=== PATIENT | female | born 1935 | race Caucasian/White ===

== ENCOUNTER 2020-02-15 10:27 | Outpatient (CLI) | payer MEDICARE, BC, SELFPAY ==
[2020-02-15 11:09] LABS: Basophils Absolute Auto 0.1 K/mm3 (0.0-0.1); Basophils Percent Auto 0.9 % (0.2-1.2); Eosinophils Absolute Auto 0.3 K/mm3 (0-0.3); Eosinophils Percent Auto 3.2 % (0-4.4); Hematocrit 44.7 % (37.0-47.0); Hemoglobin 14.7 g/dL (12.0-15.0); Immature Granulocyte Absolute 0.04 K/mm3 (0.00-0.031); Immature Granulocyte Percent A 0.5 % (0-0.5); Lymphocytes Absolute Auto 2.13 K/mm3 (0.9-3.2); Mean Corpuscular HGB Conc 32.9 g/dl (32-36); Mean Corpuscular Hemoglobin 29.2 pg (26-34); Mean Corpuscular Volume 88.7 fl (80-100); Mean Platelet Volume 11.5 fl (7.4-10.4); Monocytes Absolute Auto 0.7 K/mm3 (0.1-0.6); Monocytes Percent Auto 7.8 % (2.6-8.5); Neutrophils Absolute Auto 5.7 K/mm3 (1.3-6.7); Neutrophils Percent Auto 63.6 % (45.5-73.1); Platelet Count Result 217 k/mm3 (150-375); Red Blood Count 5.04 M/mm3 (4.2-5.4); Red Cell Distribution Width 13.9 % (11.5-14.5); White Blood Count 8.9 K/mm3 (4.5-10.0)
[2020-02-15 11:19] LABS: Alanine Aminotransferase 14 U/L (4-35); Albumin Level 4.1 g/dL (3.5-5.1); Alkaline Phosphatase 60 U/L (38-126); Aspartate Amino Transferase 22 U/L (14-36); Bilirubin,Total 0.5 mg/dL (0.2-1.3); Blood Urea Nitrogen 28 mg/dL (7-17); Calcium 9.6 mg/dL (8.4-10.2); Carbon Dioxide 32 mmol/L (22-30); Chloride 102 mmol/L (98-107); Cholesterol 163 mg/dL (0-200); Estimated Glomerular Filt Rate > 60; Glucose 109 mg/dL (65-105); HDL Direct 32 mg/dL; Potassium 3.8 mmol/L (3.4-5.0); Sodium 139 mmol/L (137-145); Triglycerides 294 mg/dL (<150)
[2020-02-15 11:29] LABS: LDL Cholesterol Direct 82 mg/dL
[2020-02-15 11:34] LABS: Hemoglobin A1C 6.3 % (<5.7)
[2020-02-15 11:58] LABS: Free T4 Free Thyroxine 0.76 ng/mL (0.78-2.19)
== END 2020-02-15 10:28 | disposition home or self-care (01) ==
PROVIDERS: PCP Family Medicine; Visit Provider Family Medicine
DX: J44.9 Chronic obstructive pulmonary disease, unspecified (principal); E11.9 Type 2 diabetes mellitus without complications; I10 Essential (primary) hypertension; Z79.899 Other long term (current) drug therapy
CPT/HCPCS: 36415; 80053; 80061; 83036; 84439; 84443; 85025

== ENCOUNTER 2020-03-29 09:35 | Outpatient (CLI) | payer MEDICARE, BC, SELFPAY ==
[2020-03-29 13:38] LABS: Free T4 Free Thyroxine 0.69 ng/mL (0.78-2.19)
== END 2020-03-29 09:36 | disposition home or self-care (01) ==
PROVIDERS: PCP Family Medicine; Visit Provider Family Medicine
DX: R53.83 Other fatigue (principal); R79.89 Other specified abnormal findings of blood chemistry
CPT/HCPCS: 36415; 84439; 84443

== ENCOUNTER 2020-05-22 11:46 | Outpatient (CLI) | payer MEDICARE, BC, SELFPAY ==
[2020-05-22 13:18] LABS: Thyroid Stimulating Hormone 0.109 uIU/mL (0.465-4.680)
[2020-05-22 13:22] LABS: Free T4 Free Thyroxine 1.02 ng/mL (0.78-2.19)
== END 2020-05-22 11:47 | disposition home or self-care (01) ==
PROVIDERS: PCP Family Medicine; Visit Provider Family Medicine
DX: E03.9 Hypothyroidism, unspecified (principal)
CPT/HCPCS: 36415; 84439; 84443

== ENCOUNTER 2021-02-20 10:55 | Outpatient (CLI) | payer MEDICARE, BC, SELFPAY ==
[2021-02-20 11:16] LABS: Basophils Absolute Auto 0.1 K/mm3 (0.0-0.1); Basophils Percent Auto 0.9 % (0.2-1.2); Eosinophils Absolute Auto 0.2 K/mm3 (0-0.3); Eosinophils Percent Auto 2.9 % (0-4.4); Hematocrit 44.3 % (37.0-47.0); Hemoglobin 14.5 g/dL (12.0-15.0); Immature Granulocyte Absolute 0.03 K/mm3 (0.00-0.031); Immature Granulocyte Percent A 0.4 % (0-0.5); Lymphocytes Absolute Auto 2.02 K/mm3 (0.9-3.2); Lymphocytes Percent Auto 26.3 % (18.3-44.2); Mean Corpuscular HGB Conc 32.7 g/dl (32-36); Mean Corpuscular Hemoglobin 29.2 pg (26-34); Mean Corpuscular Volume 89.1 fl (80-100); Mean Platelet Volume 11.3 fl (7.4-10.4); Monocytes Absolute Auto 0.6 K/mm3 (0.1-0.6); Monocytes Percent Auto 8.3 % (2.6-8.5); Neutrophils Absolute Auto 4.7 K/mm3 (1.3-6.7); Neutrophils Percent Auto 61.2 % (45.5-73.1); Platelet Count Result 223 k/mm3 (150-375); Red Blood Count 4.97 M/mm3 (4.2-5.4); Red Cell Distribution Width 13.9 % (11.5-14.5); White Blood Count 7.7 K/mm3 (4.5-10.0)
[2021-02-20 11:27] LABS: Alanine Aminotransferase 17 U/L (4-35); Albumin Level 4.3 g/dL (3.5-5.1); Alkaline Phosphatase 66 U/L (38-126); Anion Gap 10 mmol/L (8-16); Aspartate Amino Transferase 37 U/L (14-36); Bilirubin,Total 0.4 mg/dL (0.2-1.3); Blood Urea Nitrogen 22 mg/dL (7-17); Carbon Dioxide 27 mmol/L (22-30); Chloride 105 mmol/L (98-107); Cholesterol 191 mg/dL (0-200); Estimated Glomerular Filt Rate > 60; Glucose 113 mg/dL (65-105); HDL Direct 38 mg/dL; Potassium 3.8 mmol/L (3.4-5.0); Sodium 142 mmol/L (137-145); Triglycerides 339 mg/dL (<150)
[2021-02-20 11:38] LABS: LDL Cholesterol Direct 82 mg/dL
[2021-02-20 11:58] LABS: Thyroid Stimulating Hormone 0.839 uIU/mL (0.465-4.680)
[2021-02-20 12:41] LABS: Free T4 Free Thyroxine 0.81 ng/mL (0.78-2.19)
== END 2021-02-20 10:56 | disposition home or self-care (01) ==
PROVIDERS: PCP Family Medicine; Visit Provider Family Medicine
DX: E11.9 Type 2 diabetes mellitus without complications (principal); R60.9 Edema, unspecified; M19.91 Primary osteoarthritis, unspecified site; I10 Essential (primary) hypertension; K21.9 Gastro-esophageal reflux disease without esophagitis; J44.9 Chronic obstructive pulmonary disease, unspecified; Z79.899 Other long term (current) drug therapy
CPT/HCPCS: 36415; 80053; 80061; 84439; 84443; 85025

== ENCOUNTER 2021-02-28 10:32 | Outpatient (CLI) | payer MEDICARE, BC, SELFPAY ==
--- NOTE | ~2021-02-28 | MM_ITS ---
EXAMINATION: MM screening [facility] BI w [place] HISTORY: Screening TECHNIQUE: Craniocaudal and mediolateral oblique 3-D tomosynthesis images were obtained and synthetic 2-D images were generated. CAD analysis was submitted and interpreted. COMPARISON: Comparison to multiple prior studies sequentially, with oldest reviewed study dated 04/2015. BREAST PARENCHYMAL COMPOSITION: There are scattered areas of fibroglandular density. FINDINGS: There is no evidence of suspicious mass, calcification, or architectural distortion to sugg est malignancy in either breast. There has been no suspicious interval change. IMPRESSION: 1. No mammographic evidence of malignancy. 2. Recommend routine screening mammography in one year. BI-RADS Category 1: Negative Reviewed, dictated and finalized at location A.
--- NOTE | ~2021-02-28 | DEXA_ITS ---
Bone Density Report Name: Shellie Johnson Age: 85 Sex: Female Ethnicity: White Date of : 1935 Indication: postmenopausal; height loss; hysterectomy; Referring Provider: Austin Vogel Study: Bone densitometry was performed. Exam Date: February 28, 2021 Accession number: [id number] Bone Density: Region BMD T-score Z-score Classification AP Spine (L1-L4) 1.034 -0.1 2.7 Normal Femoral Neck (Left) 0.673 -1.6 0.9 Osteopenia Total Hip (Left) 0.863 -0.6 1.6 Normal Total Hip Bilateral Avg 0.844 -0.8 1.5 Normal Femoral Neck (Right) 0.572 -2.5 0.0 Osteoporosis Total Hip (Right) 0.825 -1.0 1.3 Normal World Health Organization criteria for BMD impression classify patients as: Normal (T-score at or above -1.0), Osteopenia (T-score between -1.0 and -2.5), or Osteoporosis (T-score at or below -2.5). 10-year Fracture Risk: FRAX not reported because: Some T-score for Spine Total or Hip Total or Femoral Neck at or below -2.5 Previous Exams: Region Exam Age BMD T-score BMD Change BMD Change Date g/cm2 vs Baseline vs Previous AP Spine(L1-L4) 02/28/2021 85 1.034 -0.1 0.080(8.4%)# 0.058(6.0%)* 08/14/2016 80 0.975 -0.7 0.022(2.3%)# 0.033(3.5%)# 07/17/2013 77 0.943 -0.9 -0.010(-1.1%)# 0.022(2.4%)# 07/13/2011 75 0.921 -1.1 -0.033(-3.4%)* -0.033(-3.4%)* 07/10/2006 70 0.953 -0.9 Total Hip(Left) 02/28/2021 85 0.863 -0.6 -0.076(-8.1%)# -0.029(-3.2%)* 08/14/2016 80 0.892 -0.4 -0.047(-5.0%)# 0.000(0.0%)# 07/17/2013 77 0.892 -0.4 -0.047(-5.0%)# -0.026(-2.9%)# 07/13/2011 75 0.918 -0.2 -0.020(-2.2%) -0.020(-2.2%) 07/10/2006 70 0.939 0.0 Total Hip(Right) 02/28/2021 85 0.825 -1.0 -0.055(-6.3%)# -0.028(-3.3%)* 08/14/2016 80 0.853 -0.7 -0.027(-3.1%)# 0.009(1.0%)# 07/17/2013 77 0.844 -0.8 -0.035(-4.0%)# -0.025(-2.9%)# 07/13/2011 75 0.869 -0.6 -0.010(-1.2%) -0.010(-1.2%) 07/10/2006 70 0.880 -0.5 *Denotes significance at 95% confidence level, LSC for AP Spine = 0.022 g/cm2, LSC for Total Hip = 0.027 g/cm2 Clinical Information Provided by Patient: Has the following medical conditions: Hysterectomy Patient maximum height was 61.5 Menopause Age: 43 No regular weight bearing exercise Onset of menses at age 15 Number of children 3 Impression: The patient has osteoporosis, based on the Right Femoral Neck T-score. The BMD for the Total Hip(Left) decreased, changing by -3.2% si
== END 2021-02-28 10:33 | disposition home or self-care (01) ==
LOC: ANHIMG 10:33
PROVIDERS: PCP Family Medicine; Visit Provider Family Medicine
DX: Z12.31 Encounter for screening mammogram for malignant neoplasm of breast (principal); N95.9 Unspecified menopausal and perimenopausal disorder; M85.852 Other specified disorders of bone density and structure, left thigh; M81.0 Age-related osteoporosis without current pathological fracture
CPT/HCPCS: 77063; 77067; 77080

== ENCOUNTER 2021-04-10 18:44 | Emergency (ER) | payer MEDICARE, BC, SELFPAY ==
[2021-04-10 18:48] VITALS: BP 189/68; PULSE 80; RESP 16; TEMP 37.1; O2SAT 98
--- NOTE | 2021-04-10 19:23 | ED.FEMALEGU ---
HPI - Female Genitourinary General Chief complaint: Urogenital-Female Stated complaint: uti symptoms Time Seen by Provider: 04/10/21 19:15 Source: patient and RN notes reviewed Mode of arrival: ambulatory Limitations: no limitations History of Present Illness HPI Narrative: Patient presents today complaining of difficulty urinating with dribbling, lower abdominal/genital pressure. States these are her usual symptoms when patient develops a UTI. Symptoms began today. Denies dysuria, hematuria, frequency. She has tried no [id number] treatment prior to arrival. Related Data Allergies Allergy/AdvReac Type Severity Reaction Status Date / Time cat dander Allergy Unknown Sneezing Verified 02/13/21 13:58 Sulfa (Sulfonamide Allergy Unknown Swelling Verified 02/13/21 13:58 Antibiotics) Review of Systems Review of Systems: CONSTITUTIONAL: Denies body aches, fever, chills, or sweats. EYES: Denies visual changes, redness, or discharge. ENT: Denies rhinorrhea, congestion, sore throat, or otalgia. CARDIOVASCULAR: Denies chest pain, palpitations, or edema. RESPIRATORY: Denies cough or dyspnea. GASTROINTESTINAL: Denies abdominal pain, nausea, vomiting, or diarrhea. GENITOURINARY: Denies dysuria or hematuria. + Lower abdominal pressure, dribbling SKIN: Denies rash, itching, or wounds. MUSCULOSKELETAL: Denies back pain, joint pain, or myalgia. NEUROLOGIC: Denies headache, numbness, tingling, or weakness. PSYCH: Denies depression or anxiety. PMFSH Past Medical History Medical History (Updated 04/10/21 @ 19:26 by Shanika Centeno, [facility]) Fistula Kidney stones Optional surgery tumor removed lower back(HIP) Surgical History Surgical History H/O lumpectomy x2 H/O total cystectomy H/O: hysterectomy Family History Family History Mother Family history of cardiovascular disease Acute myocardial infarction Other Diabetes mellitus Family history of elevated blood lipids Hypertension Social History Social History Alcohol intake: never Exam Narrative: GENERAL: Well-appearing, well-nourished, and in no acute distress. HEAD: Normocephalic, atraumatic. EYES: EOMI. No redness or drainage. Conjunctivae normal. ENT: Mucous membranes pink and moist. NECK: Normal AROM. Supple. No lymphadenopathy. CHEST: No respiratory distress. Clear to auscultation. HEART: Regular rate and rhythm. No murmur appreciated. Normal peripheral pulses. ABDOMEN: Soft, nontender, nondistended, normal active bowel sounds. -CVAT MUSCULOSKELETAL: No bony tenderness. EXTREMITIES: Normal range of motion. No edema. SKIN: Warm, dry, no rash. Capillary refill normal. Normal skin turgor. NEURO: No focal deficits. Alert and oriented x3. Gait steady. PSYCH: Normal affect. No signs of depression or anxiety. Course Vital Signs Vital signs: Vital Signs Temperature 98.7 F 04/10/21 18:48 Pulse Rate 80 04/10/21 18:48 Respiratory Rate 16 04/10/21 18:48 Blood Pressure 189/68 H 04/10/21 18:48 Pulse Oximetry 98 04/10/21 18:48 Temperature 98.7 F 04/10/21 18:48 Pulse Rate 80 04/10/21 18:48 Respiratory Rate 16 04/10/21 18:48 Blood Pressure 189/68 H 04/10/21 18:48 Pulse Oximetry 98 04/10/21 18:48 Reviewed. Pt has been instructed to follow up with her PCP regarding her elevated blood pressure today. MDM - Female Genitourinary Differential Diagnosis Differential diagnosis: Likely urinary tract infection, cystitis and other (Interstitial cystitis, vulvovaginitis) Lab Data Attestation: I reviewed the patient's lab results. Labs: Urine Glucose Negative Reference Range: Negative Urine Bilirubin Negative Reference Range: Negati
== END 2021-04-10 19:34 | disposition home or self-care (01) ==
PROVIDERS: Emergency Provider Nurse Practitioner; PCP Family Medicine
DX: N30.00 Acute cystitis without hematuria (principal)
CPT/HCPCS: 81003; 87077; 87086; 87186; 99213; G0463

== ENCOUNTER 2021-11-10 13:29 | Emergency (ER) | payer MEDICARE, BC, SELFPAY ==
[2021-11-10] VITALS (21 sets, daily range): BP systolic 120–182; BP diastolic 54–102; PULSE 68–86; RESP 12–26; TEMP 36.3; O2SAT 96–99
--- NOTE | ~2021-11-10 | XR_ITS ---
EXAMINATION: XR chest 1V portable DATE: 11/10/2021 14:20 INDICATION: Weakness. TECHNIQUE: A single frontal view of the chest was obtained. COMPARISON: Chest single view 11/25/2018, CT abdomen and pelvis 11/25/2018 FINDINGS: The chest demonstrates clear lungs without pneumonia, pleural effusion, or pneumothorax. Th e heart size is normal. IMPRESSION: 1. No acute cardiopulmonary disease. Reviewed, dictated and finalized at location A. ICAL PHYSICIAN ASSISTANT
--- NOTE | 2021-11-10 14:11 | ECG_ITS ---
Measurements Intervals [place] Rate: 77 P: 75 [place]: 139 QRS: -38 QRSD: 134 T: -5 QT: 417 QTc: 474 Interpretive Statements SINUS RHYTHM WITH FREQUENT SUPRAVENTRICULAR PREMATURE COMPLEXES MARKED LEFT AXIS DEVIATION [QRS AXIS < -30] RIGHT BUNDLE BRANCH BLOCK [120+ ms QRS DURATION, UPRIGHT V1, 40+ ms S IN I/aVL/V4/V5/V6] COMPARED TO ECG 11/25/2018 18:06:32 NO SIGNIFICANT CHANGES Electronically Signed On 11-10-2021 19:35:35 STAPLE PROCESSING MACHINE OPERATOR by Anjelica Easton M.D.
[2021-11-10 14:32] LABS: Basophils Absolute Auto 0.1 K/mm3 (0.0-0.1); Basophils Percent Auto 0.8 % (0.2-1.2); Eosinophils Absolute Auto 0.1 K/mm3 (0-0.3); Eosinophils Percent Auto 1.5 % (0-4.4); Hematocrit 44.7 % (37.0-47.0); Hemoglobin 14.7 g/dL (12.0-15.0); Immature Granulocyte Absolute 0.05 K/mm3 (0.00-0.031); Immature Granulocyte Percent A 0.6 % (0-0.5); Lymphocytes Absolute Auto 1.95 K/mm3 (0.9-3.2); Lymphocytes Percent Auto 22.6 % (18.3-44.2); Mean Corpuscular HGB Conc 32.9 g/dl (32-36); Mean Corpuscular Hemoglobin 29.2 pg (26-34); Mean Corpuscular Volume 88.7 fl (80-100); Mean Platelet Volume 11.6 fl (7.4-10.4); Monocytes Absolute Auto 0.8 K/mm3 (0.1-0.6); Neutrophils Absolute Auto 5.6 K/mm3 (1.3-6.7); Neutrophils Percent Auto 65.5 % (45.5-73.1); Platelet Count Result 220 k/mm3 (150-375); Red Blood Count 5.04 M/mm3 (4.2-5.4); Red Cell Distribution Width 14.4 % (11.5-14.5); White Blood Count 8.6 K/mm3 (4.5-10.0)
[2021-11-10 14:40] LABS: Alanine Aminotransferase 21 U/L (4-35); Albumin Level 4.5 g/dL (3.5-5.1); Alkaline Phosphatase 62 U/L (38-126); Anion Gap 8 mmol/L (8-16); Aspartate Amino Transferase 27 U/L (14-36); Bilirubin,Total 0.4 mg/dL (0.2-1.3); Blood Urea Nitrogen 20 mg/dL (7-17); Calcium 9.6 mg/dL (8.4-10.2); Carbon Dioxide 29 mmol/L (22-30); Chloride 104 mmol/L (98-107); Estimated CRCL calculation 33 ml/min; Estimated Glomerular Filt Rate > 60; Glucose 138 mg/dL (65-110); Potassium 3.4 mmol/L (3.4-5.0); Sodium 141 mmol/L (137-145)
[2021-11-10] MEDS: cloNIDine HCL 0.1 MG TABLET PO (14:51)
[2021-11-10] MEDS: LORazepam (*CRX) 0.5 MG TABLET PO (14:51)
--- NOTE | 2021-11-10 15:14 | ED.GENADULT ---
HPI - General Adult General Chief complaint: Recheck/Abnormal Lab/Rx Stated complaint: blood pressure is high Time Seen by Provider: 11/10/21 14:12 Source: patient and family Mode of arrival: ambulatory Limitations: no limitations History of Present Illness HPI narrative: Patient is 86 years old white female came to the emergency room with her from home complaining of jittery feeling inside and shaky feeling outside started last night, patient was not able to sleep. Patient kept checking her blood pressure which kept going up every time she repeat the measurement. Patient denies any headache, chest pain, shortness breath, back pain abdominal pain, fever, chills, nausea, vomiting. Patient reported that patient went to the bathroom at least 5 times for urination last night. Currently patient is asymptomatic. reports a lot of stress lately. Related Data Allergies Allergy/AdvReac Type Severity Reaction Status Date / Time cat dander Allergy Unknown Sneezing Verified 09/14/21 11:03 Sulfa (Sulfonamide Allergy Unknown Swelling Verified 09/14/21 11:03 Antibiotics) Review of Systems Review of Systems: CONSTITUTIONAL: Denies fever, chills, or sweats., EYES: Denies visual changes, redness, or discharge. ENT: Denies rhinorrhea, congestion, sore throat, or otalgia. CARDIOVASCULAR: Denies chest pain, palpitations, or edema. RESPIRATORY: Denies cough or dyspnea. GASTROINTESTINAL: Denies abdominal pain, nausea, vomiting, or diarrhea. GENITOURINARY: Denies dysuria or hematuria. SKIN: Denies rash or itching. MUSCULOSKELETAL: Denies back pain, joint pain, or myalgia. NEUROLOGIC: Denies headache, numbness, or weakness. PSYCHIATRIC: Anxiety PMFSH Past Medical History Medical History (Updated 11/10/21 @ 16:47 by Bimal Harirs MD) Fistula Kidney stones Optional surgery tumor removed lower back(HIP) Surgical History Surgical History H/O lumpectomy x2 H/O total cystectomy H/O: hysterectomy Family History Family History Mother Family history of cardiovascular disease Acute myocardial infarction Other Diabetes mellitus Family history of elevated blood lipids Hypertension Social History Social History Alcohol intake: never Exam Narrative: CONSTITUTIONAL: Denies fever, chills, or sweats., Intermittent sighing, at the bedside EYES: Denies visual changes, redness, or discharge. ENT: Denies rhinorrhea, congestion, sore throat, or otalgia. CARDIOVASCULAR: Denies chest pain, palpitations, or edema. RESPIRATORY: Denies cough or dyspnea. GASTROINTESTINAL: Denies abdominal pain, nausea, vomiting, or diarrhea. GENITOURINARY: Denies dysuria or hematuria. SKIN: Denies rash or itching. MUSCULOSKELETAL: Denies back pain, joint pain, or myalgia. NEUROLOGIC: Denies headache, numbness, or weakness. PSYCHIATRIC: A lot of stress lately Course Course Emergency Course: Stable Patient came to the emergency room with anxiety-like symptoms and elevated blood pressure 182/102. When I went see her in the room was 163/79. Patient have trouble sleeping last night, insomnia, have frequent sighing during examination, anxiety-like symptoms is my concern. Patient received 1 mg of Ativan and 0.1 mg of clonidine, currently feeling much better, asymptomatic, blood pressure at the time of discharge is 121/57. A prescription of clonidine 0.1 mg every 12 hours as needed systolic blood pressure more than 160 was given to the patient prior to discharge, to follow-up with her family physician in the next few days. Work-up did not show any significant findings to explain patient condition. Vital Signs Vital signs: Vital Signs Temperature 36.3 C L 11/10/21 13:41 Pulse Rate 82 11/10/21 13:41 Respiratory Rate 18 11/10/21 13:41 Blood Pressure 182/102 H 11/10/21 13
[2021-11-10 16:33] LABS: Add Urine Microscopic? NO; Appearance Urine Clear (Clear); Bilirubin Urine Negative (Negative); Blood Urine Negative (Negative); Color Urine Yellow (Yellow); Glucose Urine UA Negative (Negative); Ketones Urine Negative (Negative); Leukocyte Esterase Ur Negative LEU/UL (Negative); Nitrate Urine Negative (Negative); Protein Urine Negative (Negative); Specific Grav Ur 1.016 (1.001-1.035); Urobilinogen Urine Negative mg/dL (<2.0)
== END 2021-11-10 17:15 | disposition home or self-care (01) ==
PROVIDERS: Emergency Provider Emergency Medicine; PCP Family Medicine
DX: F41.9 Anxiety disorder, unspecified (principal); I15.9 Secondary hypertension, unspecified; Z87.442 Personal history of urinary calculi; I45.10 Unspecified right bundle-branch block; I49.1 Atrial premature depolarization
CPT/HCPCS: 36415; 71045; 80053; 81003; 85025; 93005; 99283; A9270

== ENCOUNTER → 2022-01-16 12:02 | Outpatient (CLI) | payer MEDICARE, BC, SELFPAY ==
--- NOTE | ~2022-01-16 | XR_ITS ---
EXAM: XR lumbar spine 6V w bending DATE: 01/16/2022 12:57 HISTORY: M54.50 - Low back pain, unspecified . COMPARISON: 08/06/2016. FINDINGS: 5 nonrib-bearing lumbar-type vertebral bodies. Pedicles intact. 2 mm anterolisthesis of L4 on L5 that increases with flexion. 2 mm retrolisthesis of L2 on L3 that increases in extension. Like ly physiologic wedging of L1. Vertebral body heights preserved. Severe disc space narrowing at L3-4 ( in the standing position) and mild narrowing at L4-5. Multilevel marginal osteophytosis. Atherosclero tic aortic calcification without evident aneurysm. Multilevel lower lumbar facet sclerosis. No fractu re or dislocation. 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 Severe degenerative disc disease at L3-4. Mul tilevel facet arthropathy. Reviewed, dictated and finalized at location K. 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 Severe degenerative dis c disease at L3-4. Multilevel facet arthropathy.
== END ==
PROVIDERS: PCP Family Medicine; Visit Provider Family Medicine
DX: M51.36 Other intervertebral disc degeneration, lumbar region (principal)
CPT/HCPCS: 72114

== ENCOUNTER 2022-02-05 13:15 | Outpatient (CLI) | payer MEDICARE, BC, SELFPAY ==
--- NOTE | ~2022-02-05 | US_ITS ---
EXAMINATION: US carotid duplex BI DATE: 02/05/2022 13:55 INDICATION: TECHNIQUE: Grayscale, color Doppler, and pulsed Doppler images of the cervical carotid arteries were obtained. The degree of vessel stenosis is placed in one of the following categories: normal, <50%, 5 0-69%, >=70% but less than near-occlusion, near-occlusion, or total occlusion. Note that percent sten osis relative to normal distal artery lumen diameter is indirectly measured from velocity measurement s as described by Cuong, et al. Radiology 2003; 229:340-346. Notes: Normal: Peak systolic velocity <125 centimeters/sec and no plaque <50%. Peak systolic velocity <125 ( EDV <40; ICA/CCA PSV ratio <2.0; used these factors only a tandem lesions or low cardiac output or co ntralateral disease) 50-69 %: PSV 125-230 (EDV 40-100; ratio 2-4) >= 70% but less than near occlusion: PSV greater than 230 (EDV > 100; ratio> 4.0) Near Occlusion: PSV that is variable; markedly narrowed lumen Occlusion: Absent flow on color/spectral Doppler and no lumen on burton scale. COMPARISON: None. FINDINGS: RIGHT: The right common carotid artery (CCA) peak systolic velocity (PSV) is 67 cm/s. The right internal car otid artery (ICA) PSV is 61 cm/s. The right ICA end-diastolic velocity (EDV) is 14 cm/s. The right IC A/CCA PSV ratio is 0.9. The external carotid artery (ECA) PSV is 11 cm/s. There is antegrade flow in the right vertebral artery. LEFT: The left CCA PSV is 77 cm/s. The left ICA PSV is 78 cm/s. The left ICA EDV is 20 cm/s. The left ICA/C CA PSV ratio is 1.0. The ECA PSV is 131 cm/s. There is antegrade flow in the left vertebral artery. IMPRESSION: 1. Less than 50% stenosis in the right internal carotid artery by sonographic criteria. 2. Less than 50% stenosis in the left internal carotid artery by sonographic criteria. Reviewed, dictated and finalized at location B. IMPRESSION: 1. Less than 50% stenosis in the right internal carotid artery by sonographic diann barakat. 2. Less than 50% stenosis in the left internal carotid artery by sonographic eb galdamez.
== END 2022-02-05 13:16 | disposition home or self-care (01) ==
PROVIDERS: PCP Family Medicine; Visit Provider Family Medicine
DX: R09.89 Other specified symptoms and signs involving the circulatory and respiratory systems (principal); I65.23 Occlusion and stenosis of bilateral carotid arteries
CPT/HCPCS: 93880

== ENCOUNTER 2022-03-20 10:15 | Outpatient (CLI) | payer MEDICARE, BC, SELFPAY ==
--- NOTE | ~2022-03-20 | MM_ITS ---
EXAMINATION: MM screening [facility] BI w luisana HISTORY: Screening TECHNIQUE: Craniocaudal and mediolateral oblique 3-D tomosynthesis images were obtained and synthetic 2-D images were generated. CAD analysis was submitted and interpreted. COMPARISON: Comparison to multiple prior studies sequentially, with oldest reviewed study dated 04/2015. BREAST PARENCHYMAL COMPOSITION: There are scattered areas of fibroglandular density. FINDINGS: There is no evidence of suspicious mass, calcification, or architectural distortion to sugg est malignancy in either breast. There has been no suspicious interval change. IMPRESSION: 1. No mammographic evidence of malignancy. 2. Recommend routine screening mammography in one year. BI-RADS Category 1: Negative Reviewed, dictated and finalized at location L.
== END 2022-03-20 10:16 | disposition home or self-care (01) ==
LOC: ANHIMG 10:17
PROVIDERS: PCP Family Medicine; Visit Provider Family Medicine
DX: Z12.31 Encounter for screening mammogram for malignant neoplasm of breast (principal)
CPT/HCPCS: 77063; 77067

== ENCOUNTER 2022-04-17 17:02 | Emergency (ER) | payer MEDICARE, BC, SELFPAY ==
[2022-04-17] VITALS (32 sets, daily range): BP systolic 162–214; BP diastolic 55–116; PULSE 54–80; RESP 12–25; TEMP 36.7; O2SAT 93–99
--- NOTE | ~2022-04-17 | XR_ITS ---
EXAMINATION: XR chest 1V portable DATE: 04/17/2022 17:52 INDICATION: Left chest discomfort. Palpitations. TECHNIQUE: A single frontal view of the chest was obtained. COMPARISON: Chest single view 11/10/2021 FINDINGS: There is no pneumonia, pleural effusion, or pneumothorax. The heart size is normal. IMPRESSION: 1. No acute cardiopulmonary disease. Reviewed, dictated and finalized at location A.
--- NOTE | 2022-04-17 17:28 | ECG_ITS ---
Measurements Intervals [place] Rate: 59 P: 81 [place]: 146 QRS: -26 QRSD: 132 T: -10 QT: 448 QTc: 445 Interpretive Statements SINUS BRADYCARDIA BORDERLINE LEFT AXIS DEVIATION [QRS AXIS < -20] RIGHT BUNDLE BRANCH BLOCK [120+ ms QRS DURATION, UPRIGHT V1, 40+ ms S IN I/aVL/V4/V5/V6] ABNORMAL ECG COMPARED TO ECG 11/10/2021 14:58:18 SINUS BRADYCARDIA NOW PRESENT Electronically Signed On 04-18-2022 9:33:35 CDT by Javy Rubi M.D.
--- NOTE | 2022-04-17 17:33 | PC.NURSE ---
EDP at bedside to assess pt.
--- NOTE | 2022-04-17 17:36 | ED.ARRPALP ---
HPI - Arrhythmia/Palpitations General Chief Complaint: Arrhythmia/Palpitations Stated Complaint: high blood pressure, weakness, afib? Time Seen by Provider: 04/17/22 17:27 History of Present Illness HPI narrative: Patient is an 86-year-old female with a history of high blood pressure here for evaluation of elevated blood pressures at home today. Patient states that her blood pressure is at home were 205 systolic on her cuff. She notes that she feels different today, but is unable to elicit any specific complaint, specifically denying any chest pain, palpitations, confusion, headaches. She did have an episode of what she describes as a abnormal sensation in my chest about a week ago, was seen by her primary care doctor who ordered an EKG and referred her to a land appraiser. She has not yet seen the land appraiser but notes that this sensation has not returned since then. She denies any syncope, headaches, visual changes, dizziness, abdominal pain, nausea or vomiting. Related Data Allergies Allergy/AdvReac Type Severity Reaction Status Date / Time cat dander Allergy Unknown Sneezing Verified 04/17/22 18:06 Sulfa (Sulfonamide Allergy Unknown Swelling Verified 04/17/22 18:06 Antibiotics) Review of Systems Review of Systems: Gen: Denies fevers or chills Eyes: Denies eye pain or visual change ENT: Denies congestion Respiratory: Denies shortness of breath or cough CV: Denies chest pain or palpitations GI: Denies abdominal pain nausea, emesis or diarrhea : denies burning, urgency, frequency or hematuria Musculoskeletal: Denies back pain or muscle pain Neuro: Denies numbness, tingling, weakness or focal weakness Skin: Denies rash Except as documented, all other systems reviewed and negative [facility] Past Medical History Medical History Fistula Kidney stones Optional surgery tumor removed lower back(HIP) Surgical History Surgical History H/O lumpectomy x2 H/O total cystectomy H/O: hysterectomy Family History Family History Mother Family history of cardiovascular disease Acute myocardial infarction Other Diabetes mellitus Family history of elevated blood lipids Hypertension Social History Social History Smoking status: Former smoker Alcohol intake: never Exam Narrative: APPEARANCE: Well appearing, no pain in distress, well-nourished. Head: Normocephalic and atraumatic. EYES: PERRLA/EOMI, conjunctivae clear NOSE: No nasal drainage EARS: External ear normal in appearance THROAT: Oropharynx is clear. Mucous membranes are moist. NECK: Supple. No adenopathy, no masses. RESPIRATORY: Airway patent, respirations nonlabored. Clear to auscultation bilaterally, no rales, rhonchi, wheezing. CARDIOVASCULAR: Regular rate and rhythm without murmurs, rubs, or gallops. ABDOMINAL: Normoactive bowel sounds. Soft, nontender, nondistended. No rebound tenderness or guarding. MUSCULOSKELETAL: Extremities are warm and well-perfused. Moves all extremities well. No edema. NEURO: Cranial nerves II through XII intact. normal speech. No focal neurologic deficits. SKIN: Skin is warm and dry. No rashes. PSYCHIATRIC: Normal affect/mood. Course Vital Signs Vital signs: Vital Signs Temperature 98.1 F 04/17/22 17:07 Pulse Rate 69 04/17/22 17:07 Respiratory Rate 18 04/17/22 17:07 Blood Pressure 214/116 H 04/17/22 17:07 Pulse Oximetry 94 04/17/22 17:07 Oxygen Delivery Room Air 04/17/22 17:07 Temperature 98.1 F 04/17/22 17:07 Pulse Rate 62 04/17/22 20:16 Respiratory Rate 19 04/17/22 20:16 Blood Pressure 171/73 H 04/17/22 20:31 Pulse Oximetry 97 04/17/22 20:45 Oxygen Delivery Room Air 04/17/22 17:07 MDM - Arrhythmia/Palpitations MDM Narrative Medical
--- NOTE | 2022-04-17 17:50 | PC.NURSE ---
Radiology at bedside to obtain cxray
--- NOTE | 2022-04-17 17:54 | PC.NURSE ---
I documented but did not obtain EKG or show to
[2022-04-17 18:06] LABS: Basophils Absolute Auto 0.1 K/mm3 (0.0-0.1); Basophils Percent Auto 1.1 % (0.2-1.2); Eosinophils Absolute Auto 0.3 K/mm3 (0-0.3); Hematocrit 42.6 % (37.0-47.0); Hemoglobin 14.2 g/dL (12.0-15.0); Immature Granulocyte Absolute 0.05 K/mm3 (0.00-0.031); Immature Granulocyte Percent A 0.5 % (0-0.5); Lymphocytes Absolute Auto 1.88 K/mm3 (0.9-3.2); Lymphocytes Percent Auto 19.5 % (18.3-44.2); Mean Corpuscular HGB Conc 33.3 g/dl (32-36); Mean Corpuscular Hemoglobin 29.8 pg (26-34); Mean Corpuscular Volume 89.3 fl (80-100); Mean Platelet Volume 11.7 fl (7.4-10.4); Monocytes Percent Auto 9.9 % (2.6-8.5); Neutrophils Absolute Auto 6.4 K/mm3 (1.3-6.7); Platelet Count Result 205 k/mm3 (150-375); Red Blood Count 4.77 M/mm3 (4.2-5.4); Red Cell Distribution Width 13.8 % (11.5-14.5); White Blood Count 9.6 K/mm3 (4.5-10.0)
[2022-04-17 18:45] LABS: Alanine Aminotransferase 26 U/L (6-35); Albumin Level 4.3 g/dL (3.5-5.1); Alkaline Phosphatase 72 U/L (38-126); Anion Gap 11 mmol/L (8-16); Aspartate Amino Transferase 31 U/L (14-36); Bilirubin,Total 0.4 mg/dL (0.2-1.3); Blood Urea Nitrogen 35 mg/dL (7-17); Calcium 9.4 mg/dL (8.4-10.2); Carbon Dioxide 26 mmol/L (22-30); Chloride 103 mmol/L (98-107); Estimated CRCL calculation 30 ml/min; Estimated Glomerular Filt Rate 53; Glucose 132 mg/dL (65-110); Sodium 140 mmol/L (137-145)
[2022-04-17 20:32] LABS: Appearance Urine Clear (Clear); Bilirubin Urine 1+ (Negative); Blood Urine Negative (Negative); Color Urine Yellow (Yellow); Glucose Urine UA Negative (Negative); Ketones Urine Negative (Negative); Leukocyte Esterase Ur Negative LEU/UL (Negative); Nitrate Urine Positive (Negative); Protein Urine Negative (Negative); Specific Grav Ur >= 1.030 (1.001-1.035); Urobilinogen Urine 0.2 mg/dL (<2.0); pH Urine 5.5 (5.0-9.0)
[2022-04-17 20:36] LABS: Bacteria Urine Trace /hpf; Mucus Urine Rare /lpf; RBC Urine 0-2 /hpf (0-2); Squamous Epithelial Cell Urine Few /hpf (Few)
[2022-04-17 20:41] LABS: Add Urine Microscopic? YES
== END 2022-04-17 21:05 | disposition home or self-care (01) ==
PROVIDERS: Physician Assistant; Emergency Provider Emergency Medicine; PCP Family Medicine
DX: I10 Essential (primary) hypertension (principal); Z87.442 Personal history of urinary calculi; Z90.710 Acquired absence of both cervix and uterus; R00.1 Bradycardia, unspecified; I45.10 Unspecified right bundle-branch block; Z87.891 Personal history of nicotine dependence; R82.998 Other abnormal findings in urine
CPT/HCPCS: 36415; 71045; 80053; 81001; 85025; 87077; 87086; 87186; 93005; 99284

== ENCOUNTER 2022-05-10 09:37 | Outpatient (CLI) | payer MEDICARE, BC, SELFPAY ==
[2022-05-10 20:53] LABS: Cholesterol 169 mg/dL (0-200); HDL Direct 29 mg/dL; Triglycerides 380 mg/dL (<150)
[2022-05-10 21:03] LABS: LDL Cholesterol Direct 73 mg/dL
== END 2022-05-10 09:38 | disposition home or self-care (01) ==
PROVIDERS: PCP Family Medicine; Visit Provider Family Medicine
DX: E78.5 Hyperlipidemia, unspecified (principal); E03.9 Hypothyroidism, unspecified
CPT/HCPCS: 36415; 80061; 84443

== ENCOUNTER 2022-08-15 12:29 | Emergency (ER) | payer MEDICARE, BC, SELFPAY ==
--- NOTE | ~2022-08-15 | XR_ITS ---
EXAMINATION: XR chest 2V DATE: 08/15/2022 13:28 INDICATION: Hypertension TECHNIQUE: AP and lateral views of the chest are obtained. COMPARISON: 04/17/2022 FINDINGS: The lungs are free of acute opacities. There is a lung nodule which appears to project in t he right middle lobe. No pleural effusion or pneumothorax. The cardiomediastinal silhouette is normal . There is moderate thoracic spondylosis. IMPRESSION: 1. No acute cardiopulmonary abnormality. 2. Right lung nodule, possibly in the right middle lobe. Further evaluation with CT of the chest is r ecommended. Reviewed, dictated and finalized at location A. BER IMPRESSION: 1. No acute cardiopulmonary abnormality. 2. Right lung nodule, possibly in the right middle lobe. Further evaluation wit h CT of the chest is recommended.
[2022-08-15 12:49] VITALS: BP 206/76; PULSE 64; RESP 14; TEMP 37; O2SAT 97
--- NOTE | 2022-08-15 12:51 | ECG_ITS ---
Measurements Intervals [place] Rate: 58 P: 23 [place]: 146 QRS: -32 QRSD: 132 T: -7 QT: 436 QTc: 431 Interpretive Statements SINUS BRADYCARDIA MARKED LEFT AXIS DEVIATION [QRS AXIS < -30] RIGHT BUNDLE BRANCH BLOCK [120+ ms QRS DURATION, UPRIGHT V1, 40+ ms S IN I/aVL/V4/V5/V6] MODERATE VOLTAGE CRITERIA FOR LVH, CONSIDER NORMAL VARIANT [MEETS CRITERIA IN ONE OF: R(aVL), S(V1), R(V5), R(V5/V6)+S(V1)] COMPARED TO ECG 04/17/2022 17:15:02 NO SIGNIFICANT CHANGES Electronically Signed On 08-15-2022 16:09:19 MAIL READER by Diaz Christensen M.D.
[2022-08-15 13:05] LABS: Basophils Absolute Auto 0.1 K/mm3 (0.0-0.1); Eosinophils Absolute Auto 0.2 K/mm3 (0-0.3); Eosinophils Percent Auto 1.7 % (0-4.4); Hematocrit 43.6 % (37.0-47.0); Hemoglobin 14.5 g/dL (12.0-15.0); Immature Granulocyte Absolute 0.03 K/mm3 (0.00-0.031); Immature Granulocyte Percent A 0.3 % (0-0.5); Lymphocytes Absolute Auto 1.45 K/mm3 (0.9-3.2); Lymphocytes Percent Auto 16.8 % (18.3-44.2); Mean Corpuscular HGB Conc 33.3 g/dl (32-36); Mean Corpuscular Hemoglobin 29.8 pg (26-34); Mean Corpuscular Volume 89.5 fl (80-100); Mean Platelet Volume 11.4 fl (7.4-10.4); Monocytes Absolute Auto 0.7 K/mm3 (0.1-0.6); Monocytes Percent Auto 7.5 % (2.6-8.5); Neutrophils Absolute Auto 6.3 K/mm3 (1.3-6.7); Neutrophils Percent Auto 72.7 % (45.5-73.1); Platelet Count Result 229 k/mm3 (150-375); Red Blood Count 4.87 M/mm3 (4.2-5.4); Red Cell Distribution Width 13.7 % (11.5-14.5); White Blood Count 8.6 K/mm3 (4.5-10.0)
[2022-08-15 13:16] LABS: Alanine Aminotransferase 29 U/L (6-35); Albumin Level 4.6 g/dL (3.5-5.1); Alkaline Phosphatase 78 U/L (38-126); Anion Gap 11 mmol/L (8-16); Aspartate Amino Transferase 29 U/L (14-36); Bilirubin,Total 0.5 mg/dL (0.2-1.3); Blood Urea Nitrogen 25 mg/dL (7-17); Calcium 9.5 mg/dL (8.4-10.2); Carbon Dioxide 25 mmol/L (22-30); Chloride 104 mmol/L (98-107); Estimated CRCL calculation 36 ml/min; Estimated Glomerular Filt Rate > 60; Glucose 210 mg/dL (65-110); Potassium 3.7 mmol/L (3.4-5.0); Sodium 140 mmol/L (137-145)
[2022-08-15 13:17] VITALS: BP 211/65; PULSE 58; RESP 16; O2SAT 98
[2022-08-15 13:52] LABS: Add Urine Microscopic? YES; Appearance Urine Clear (Clear); Bilirubin Urine Negative (Negative); Blood Urine Negative (Negative); Color Urine Light Yellow (Yellow); Glucose Urine UA 1+ mg/dL (Negative); Ketones Urine Negative (Negative); Leukocyte Esterase Ur Negative LEU/UL (Negative); Nitrate Urine Positive (Negative); Protein Urine Negative (Negative); Specific Grav Ur >= 1.030 (1.001-1.035); Urobilinogen Urine 0.2 mg/dL (<2.0)
[2022-08-15 14:03] LABS: Bacteria Urine Trace /hpf; Mucus Urine Rare /lpf; RBC Urine 0-2 /hpf (0-2); Squamous Epithelial Cell Urine Moderate /hpf (Few)
[2022-08-15 14:17] VITALS: BP 133/96; PULSE 58; RESP 18; O2SAT 97
[2022-08-15 14:31] VITALS: BP 168/59; PULSE 57; RESP 16; O2SAT 98
[2022-08-15 14:49] LABS: Thyroid Stimulating Hormone 0.852 uIU/mL (0.465-4.680)
--- NOTE | 2022-08-15 15:02 | ED.GENADULT ---
HPI - General Adult General Chief complaint: Recheck/Abnormal Lab/Rx Stated complaint: sent by PCP for HTN Time Seen by Provider: 08/15/22 13:06 History of Present Illness HPI narrative: 86-year-old female presents to our department for evaluation of hypertension and feeling washed out for 1 to 2 weeks. Patient has seen her primary care doctor for the symptoms and recently had a adjustment of her antihypertensive medications. Patient noted her pressure was still a bit elevated which motivated her trip to the ER. She denies headache, shortness of breath, vision changes. Related Data Home Medications Medication Instructions Recorded Confirmed aspirin 81 mg tablet,delayed 81 mg PO DAILY 04/22/22 08/14/22 release (Adult Low Dose Aspirin) Allergies Allergy/AdvReac Type Severity Reaction Status Date / Time cat dander Allergy Unknown Sneezing Verified 08/15/22 12:29 Sulfa (Sulfonamide Allergy Unknown Swelling Verified 08/15/22 12:29 Antibiotics) Review of Systems Review of Systems: CONSTITUTIONAL: Denies fever, chills, or sweats. EYES: Denies visual changes, redness, or discharge. ENT: Denies rhinorrhea, congestion, sore throat, or otalgia. CARDIOVASCULAR: Denies chest pain, palpitations, or edema. RESPIRATORY: Denies cough or dyspnea. GASTROINTESTINAL: Denies abdominal pain, nausea, vomiting, or diarrhea. GENITOURINARY: Denies dysuria or hematuria. SKIN: Denies rash or itching. MUSCULOSKELETAL: Denies back pain, joint pain, or myalgia. NEUROLOGIC: Denies headache, numbness, or weakness. PSYCHIATRIC: Denies anxiety or depression. [facility] Past Medical History Medical History (Updated 08/15/22 @ 15:19 by Vipin Fitzgerald, ) Fistula Kidney stones Optional surgery tumor removed lower back(HIP) Surgical History Surgical History H/O lumpectomy x2 H/O total cystectomy H/O: hysterectomy Family History Family History Mother Family history of cardiovascular disease Acute myocardial infarction Other Diabetes mellitus Family history of elevated blood lipids Hypertension Social History Social History Smoking status: Former smoker Alcohol intake: never Lack of Transportation: No Lack of Food: Never True Current Housing: I Have Housing Concerned About Future Housing: No Difficulty Paying Gas/Electric Bills: No Difficulty Paying for Meds: No Currently Unemployed: No Education: Decline to Answer Difficulty w/ Childcare or Family Care: No Exam Narrative: GENERAL: Well-appearing, well-nourished, and in no acute distress. HEAD: Normocephalic, atraumatic. EYES: PERRLA and EOMI. ENT: Nares clear, no rhinorrhea or epistaxis. Mucous membranes moist. NECK: Supple. CHEST: Clear to auscultation. No respiratory distress. HEART: Regular rate and rhythm. No murmur heard. Normal peripheral pulses. ABDOMEN: Soft, nontender, nondistended, normal active bowel sounds. EXTREMITIES: Normal range of motion. No edema. SKIN: Warm, dry, no rash. NEURO: No focal deficits. Alert and oriented x3. PSYCH: Normal mood and affect. Course Vital Signs Vital signs: Vital Signs Temperature 98.6 F 08/15/22 12:49 Pulse Rate 64 08/15/22 12:49 Respiratory Rate 14 08/15/22 12:49 Blood Pressure 206/76 H 08/15/22 12:49 Pulse Oximetry 97 08/15/22 12:49 Oxygen Delivery Room Air 08/15/22 12:49 Temperature 98.6 F 08/15/22 12:49 Pulse Rate 60 08/15/22 15:34 Respiratory Rate 16 08/15/22 15:34 Blood Pressure 158/60 H 08/15/22 15:34 Pulse Oximetry 98 08/15/22 15:34 Oxygen Delivery Room Air 08/15/22 12:49 Medical Decision Making MDM Narrative Medical decision making narrative: 86-year-old female presents for evaluation of hypertension. at bedside states that patient is constantly anxio
[2022-08-15 15:34] VITALS: BP 158/60; PULSE 60; RESP 16; O2SAT 98
== END 2022-08-15 15:35 | disposition home or self-care (01) ==
PROVIDERS: Family Medicine; Emergency Provider Emergency Medicine; PCP Family Medicine
DX: I10 Essential (primary) hypertension (principal); Z87.442 Personal history of urinary calculi; Z90.710 Acquired absence of both cervix and uterus; Z87.891 Personal history of nicotine dependence; I45.10 Unspecified right bundle-branch block; R00.1 Bradycardia, unspecified
CPT/HCPCS: 36415; 71046; 80053; 81001; 84439; 84443; 85025; 93005; 99283

== ENCOUNTER 2022-08-18 12:26 | Outpatient (CLI) | payer MEDICARE, BC, SELFPAY ==
--- NOTE | ~2022-08-18 | CT_ITS ---
EXAMINATION: CT brain wo con DATE: 08/18/2022 13:01 INDICATION: Transient ischemic episode. TECHNIQUE: Computed tomography (CT) of the head was performed without intravenous contrast. Sagittal and coronal reconstructions were performed. The mA was adjusted according to patient size. Iterative reconstruction technique was employed. The dose-length product was 529.67 mGy-cm. COMPARISON: None FINDINGS: No acute intracranial hemorrhage, acute infarction or abnormal extra axial fluid collection. There is minimal scattered white matter hypoattenuation consistent with chronic small vessel ischemic disease . Symmetric prominence of the sulci consistent with mild age-appropriate diffuse cerebral volume loss . Ventricles are normal and symmetric. No mass/mass effect. Complete opacification of the right sphen oid sinus which demonstrates thickened sclerotic carpenter consistent with chronic sinusitis. There is mi ld mucosal thickening the left sphenoid sinus. The orbits and mastoid air cells are normal. IMPRESSION: 1. Normal aging brain. No acute intracranial process. 2. Chronic right sphenoid sinusitis. Reviewed, dictated and finalized at location B. [employer]
== END 2022-08-18 12:27 | disposition home or self-care (01) ==
PROVIDERS: PCP Family Medicine; Visit Provider Nurse Practitioner
DX: G45.9 Transient cerebral ischemic attack, unspecified (principal)
CPT/HCPCS: 70450

== ENCOUNTER 2022-09-26 22:55 | Inpatient (IN) | payer MEDICARE, BC, SELFPAY ==
--- NOTE | ~2022-09-26 | CT_ITS ---
CT Abdomen and Pelvis with contrast. History: Diverticulitis. Spiral CT of the abdomen and pelvis was performed after the administration of intravenous contrast. 1 00 cc of Omnipaque 350 was administered intravenously without complication. Dose reduction technique was used on this scan by utilizing automated exposure control and iterative reconstruction technique. The dose-length product (DLP) was 260.01 mGy-cm. COMPARISON: 11/25/2018 Findings: Scans through the lung bases demonstrate mild atelectatic change. Small hiatal hernia noted . The liver, spleen, pancreas, gallbladder, and adrenal glands are within normal limits. There is a 1.2 cm exophytic mass at the right lower renal pole, of indeterminate Hounsfield units (axial image 86). There is a benign left renal cyst measuring 11.1 cm in size. No evidence of aortic aneurysm. No lym phadenopathy is seen. There is no evidence of bowel obstruction. Rectosigmoid anastomosis noted. There is markedly hyperden se material focally in the transverse colon (axial images 100-107). Images through the pelvis were performed. Urinary bladder unremarkable. Patient is post hysterectomy. No pelvic mass identified. No ascites is seen. Impression: Hyperdense material focally in the transverse colon, as noted above. This could reflect active hemorr dolores/GI bleeding, versus possibly calcified material other ingested material. 1.2 cm indeterminate right lower pole renal mass. Pre and postcontrast MR recommended to assess for e nhancing/solid lesion, which would be suspicious for small renal cell carcinoma. Small hiatal hernia. Reviewed, dictated and finalized at location . PALLIATIVE CARE Impression: Hyperdense material focally in the transverse colon, as noted above. This could reflect active hemorrhage/GI bleeding, versus possibly calcified material othe r ingested material. 1.2 cm indeterminate right lower pole renal mass. Pre and postcontrast MR recom mended to assess for enhancing/solid lesion, which would be suspicious for smal l renal cell carcinoma. Small hiatal hernia.
[2022-09-26 23:09] VITALS: BP 171/125; PULSE 89; RESP 17; TEMP 36.5; O2SAT 97
[2022-09-26 23:27] LABS: Basophils Absolute Auto 0.1 K/mm3 (0.0-0.1); Basophils Percent Auto 0.9 % (0.2-1.2); Eosinophils Absolute Auto 0.2 K/mm3 (0-0.3); Eosinophils Percent Auto 1.4 % (0-4.4); Hematocrit 41.4 % (37.0-47.0); Hemoglobin 13.9 g/dL (12.0-15.0); Immature Granulocyte Absolute 0.06 K/mm3 (0.00-0.031); Immature Granulocyte Percent A 0.5 % (0-0.5); Lymphocytes Absolute Auto 1.97 K/mm3 (0.9-3.2); Lymphocytes Percent Auto 15.3 % (18.3-44.2); Mean Corpuscular HGB Conc 33.6 g/dl (32-36); Mean Corpuscular Hemoglobin 29.8 pg (26-34); Mean Corpuscular Volume 88.7 fl (80-100); Mean Platelet Volume 11.5 fl (7.4-10.4); Monocytes Absolute Auto 0.9 K/mm3 (0.1-0.6); Neutrophils Absolute Auto 9.7 K/mm3 (1.3-6.7); Neutrophils Percent Auto 74.9 % (45.5-73.1); Platelet Count Result 232 k/mm3 (150-375); Red Blood Count 4.67 M/mm3 (4.2-5.4); Red Cell Distribution Width 13.8 % (11.5-14.5); White Blood Count 12.9 K/mm3 (4.5-10.0)
[2022-09-26 23:38] LABS: Alanine Aminotransferase 29 U/L (6-35); Albumin Level 4.3 g/dL (3.5-5.1); Alkaline Phosphatase 82 U/L (38-126); Anion Gap 11 mmol/L (8-16); Aspartate Amino Transferase 26 U/L (14-36); Bilirubin,Total 0.4 mg/dL (0.2-1.3); Blood Urea Nitrogen 29 mg/dL (7-17); Calcium 9.6 mg/dL (8.4-10.2); Carbon Dioxide 25 mmol/L (22-30); Chloride 104 mmol/L (98-107); Estimated CRCL calculation 22 ml/min; Estimated Glomerular Filt Rate 43; Glucose 192 mg/dL (65-110); Potassium 3.5 mmol/L (3.4-5.0); Sodium 140 mmol/L (137-145)
[2022-09-27] VITALS (24 sets, daily range): BP systolic 110–182; BP diastolic 54–98; PULSE 71–113; RESP 16–24; TEMP 36–36.9; O2SAT 95–99; BMI 25.0
--- NOTE | 2022-09-27 00:40 | ED.GIBLEED ---
HPI - GI Bleed General Chief complaint: GI Bleed Stated complaint: rectal bleed Time Seen by Provider: 09/27/22 00:04 Source: patient and family Mode of arrival: wheelchair Limitations: no limitations History of Present Illness HPI Narrative: 86-year-old with a history of diverticulosis, diverticular bleed here with complaints of bright red blood per rectum for last few hours. Denies abdominal pain or feeling lightheaded. No history of fever or chills. Patient states that for the past few months she has been eating nuts. she e denies having any hemorrhoids. She states that she has not been constipated complaint: gross hematochezia Onset (ago): hour(s) (3) Related Data Home Medications Medication Instructions Recorded Confirmed aspirin 81 mg tablet,delayed 81 mg PO DAILY 04/22/22 08/14/22 release (Adult Low Dose Aspirin) Allergies Allergy/AdvReac Type Severity Reaction Status Date / Time cat dander Allergy Unknown Sneezing Verified 09/05/22 15:26 Sulfa (Sulfonamide Allergy Unknown Swelling Verified 09/05/22 15:26 Antibiotics) PMFSH Past Medical History Medical History (Updated 09/27/22 @ 02:41 by Reymundo Rojas MD) Fistula Kidney stones Optional surgery tumor removed lower back(HIP) Surgical History Surgical History H/O lumpectomy x2 H/O total cystectomy H/O: hysterectomy Family History Family History Mother Family history of cardiovascular disease Acute myocardial infarction Other Diabetes mellitus Family history of elevated blood lipids Hypertension Social History Social History Smoking status: Former smoker Alcohol intake: never Lack of Transportation: No Lack of Food: Never True Current Housing: I Have Housing Concerned About Future Housing: No Difficulty Paying Gas/Electric Bills: No Difficulty Paying for Meds: No Currently Unemployed: No Education: Decline to Answer Difficulty w/ Childcare or Family Care: No Exam Narrative: GENERAL: Well-appearing, well-nourished, and in no acute distress. HEAD: Normocephalic, atraumatic. EYES: PERRLA and EOMI. NECK: Supple. CHEST: Clear to auscultation. No respiratory distress. HEART: Regular rate and rhythm. No murmur heard. Normal peripheral pulses. ABDOMEN: Soft, nontender, nondistended, normal active bowel sounds. Rectal bright red blood EXTREMITIES: Normal range of motion. No edema. SKIN: Warm, dry, no rash. NEURO: No focal deficits. Alert and oriented x3. PSYCH: Normal mood and affect. Course Course Emergency Course: Patient had no further bleeding while she was here in the ER she is hemodynamically stable. Notified patient and family about her lab work, CT findings. Agreeable for admission. Discussed with hospitalist will accept the patient started on Zosyn 3.375 mg Vital Signs Vital signs: Vital Signs Temperature 36.5 C 09/26/22 23:09 Pulse Rate 89 09/26/22 23:09 Respiratory Rate 17 09/26/22 23:09 Blood Pressure 171/125 H 09/26/22 23:09 Pulse Oximetry 97 09/26/22 23:09 Oxygen Delivery Room Air 09/26/22 23:09 Temperature 36.5 C 09/26/22 23:09 Pulse Rate 89 09/26/22 23:09 Respiratory Rate 17 09/26/22 23:09 Blood Pressure 171/125 H 09/26/22 23:09 Pulse Oximetry 97 09/26/22 23:09 Oxygen Delivery Room Air 09/26/22 23:09 MDM - GI Bleed MDM Narrative Medical decision making narrative: 86-year-old with a history of diverticular disease not on any anticoagulant except for aspirin 81 mg no history of hemorrhoids presents with rectal bleeding hemodynamically she is stable will do CT scan of the abdomen to rule out diverticulitis or diverticular bleed along with lab work., Differential Diagnosis Differential diagnosis: Likely hemorrhoids, Lower gastrointestinal hemorrhage, hematochezia and thomas
--- NOTE | 2022-09-27 02:54 | PM.IMHP ---
H&P: HPI History of Present Illness Date/Time: 09/27/22 02:54 Chief Complaint: Red blood bowel movement Narrative: 86-year-old with a history of diverticulosis, hypertension, hyperlipidemia, hypothyroidism, type 2 diabetes, presented ED with a chief complaint of bloody stools. Patient started to have bloody bowel movements yesterday evening, patient denies abdominal pain, fever, chills. Patient also denies nausea vomiting, chest pain, shortness of breath , lightheadedness. Patient comes to ER for evaluation. Patient is hemodynamically stable, hemoglobin 12.8. Patient is also found to have elevated BUN and creatinine. CT abdomen done, report is pending. suspected diverticulitis, patient received Zosyn in the ED. if physician also consulted the GI. Review of Systems Review of Systems: All systems reviewed & are unremarkable except as noted in HPI and below PMFSH Past Medical History Medical History (Updated 09/27/22 @ 03:07 by Jesus Tirado MD) Fistula Kidney stones Optional surgery tumor removed lower back(HIP) Surgical History Surgical History H/O lumpectomy x2 H/O total cystectomy H/O: hysterectomy Family History Family History Mother Family history of cardiovascular disease Acute myocardial infarction Other Diabetes mellitus Family history of elevated blood lipids Hypertension Social History Social History Smoking status: Former smoker Alcohol intake: never Lack of Transportation: No Lack of Food: Never True Current Housing: I Have Housing Concerned About Future Housing: No Difficulty Paying Gas/Electric Bills: No Difficulty Paying for Meds: No Currently Unemployed: No Education: Decline to Answer Difficulty w/ Childcare or Family Care: No Meds Home Medications and Allergies Home Medications Medication Instructions Recorded Confirmed Type gabapentin 100 mg capsule 100 mg PO TID #90 caps 01/23/22 08/14/22 Rx levothyroxine 50 mcg tablet 50 mcg PO DAILY #90 tabs 01/23/22 08/14/22 Rx meclizine 25 mg tablet 25 mg PO TID #60 tabs 01/23/22 08/14/22 Rx metoprolol succinate 50 mg 50 mg PO BID #180 tabs 01/23/22 08/14/22 Rx tablet,extended release 24 hr simvastatin 20 mg tablet See Rx Instructions .Route 01/23/22 08/14/22 Rx .COMPLEX #90 tabs aspirin 81 mg tablet,delayed 81 mg PO DAILY 04/22/22 08/14/22 History release (Adult Low Dose Aspirin) indapamide 2.5 mg tablet 2.5 mg PO DAILY #90 tabs 04/22/22 08/14/22 Rx lansoprazole 30 mg capsule,delayed 30 mg PO DAILY #90 caps 05/21/22 08/14/22 Rx release irbesartan 300 mg tablet 300 mg PO DAILY #90 tabs 06/20/22 08/14/22 Rx indomethacin 50 mg capsule 50 mg PO TID PRN gout 90 days #90 06/25/22 08/14/22 Rx caps hydralazine 10 mg tablet 10 mg PO DAILY #30 tabs 09/05/22 Rx amlodipine 10 mg tablet 5 mg PO DAILY #45 tabs 09/06/22 Rx Allergies Allergy/AdvReac Type Severity Reaction Status Date / Time cat dander Allergy Unknown Sneezing Verified 09/05/22 15:26 Sulfa (Sulfonamide Allergy Unknown Swelling Verified 09/05/22 15:26 Antibiotics) Vital Signs Vital Signs - 24 hr 09/26/22 23:09 Temperature 97.7 F Pulse Rate 89 Respiratory Rate 17 Blood Pressure 171/125 H Pulse Oximetry 97 Oxygen Delivery Room Air Exam Narrative: GENERAL: Pleasant, in no acute distress. Well-nourished. - EYES: EOMI. Anicteric. - HENT: Moist mucous membranes. - LUNGS: Clear to auscultation bilaterally, no wheezing, rhonchi, or rales. - CARDIOVASCULAR: Regular rate and rhythm. No murmur. No JVD. - ABDOMEN: Soft, non-tender and non-distended. No palpable masses. - EXTREMITIES: No edema. Peripheral pulses 2+. Non-tender. - NEUROLOGIC: No focal neurological deficits. CN II-XII grossly intact. - PSYCHIATRIC: Awake, Alert and oriented x 3. Appropriate mood
[2022-09-27 03:06] LABS: Hematocrit 38.8 % (37.0-47.0); Hemoglobin 12.8 g/dL (12.0-15.0)
[2022-09-27 03:15] LABS: Influenza A QL RT-PCR Negative (Negative); Influenza B QL RT-PCR Negative (Negative); SARS-CoV-2 RNA PCR Negative
--- NOTE | 2022-09-27 04:39 | ADMGEN ---
This patient, Shellie Johnson, was admitted to IMU Room 212-01. Patient/family oriented to hospital policies and general routines including ID bracelet, bed and alarms, visiting hours, pain management, procedures, bathroom and other care routines, personal items, smoking policy, room service/diet, and visiting hours. Information on how to activate the Rapid Response Team has been discussed. Patient/Family are encouraged to report perceived risks to care and to ask questions if they do not understand what they are told or what they should do.
[2022-09-27 05:13] LABS: Hematocrit 40.4 % (37.0-47.0); Hemoglobin 13.5 g/dL (12.0-15.0)
[2022-09-27 05:32] LABS: Anion Gap 11 mmol/L (8-16); Blood Urea Nitrogen 26 mg/dL (7-17); Calcium 9.5 mg/dL (8.4-10.2); Carbon Dioxide 27 mmol/L (22-30); Chloride 104 mmol/L (98-107); Estimated CRCL calculation 27 ml/min; Estimated Glomerular Filt Rate 53; Glucose 156 mg/dL (65-110); Potassium 3.5 mmol/L (3.4-5.0); Sodium 142 mmol/L (137-145)
[2022-09-27] MEDS: SODIUM CHLORIDE 0.9% IV 1,000 ML 125 ML IV CONT ×3 (05:42→22:33)
--- NOTE | 2022-09-27 06:51 | WPDGICN ---
Assessment and Plan Assessment and plan (1) GI bleeding: Code(s): K92.2 - Gastrointestinal hemorrhage, unspecified Status: Acute Assessment and Plan: No bloody bowel movements have been reported since arriving in the emergency room. Hemoglobin did drop from 13.5-11.5 I told her that I thought the bleeding would stop spontaneously. she recalls once having had to have a colonoscopy because of bleeding in the colon (2) Diverticulitis: Code(s): K57.92 - Diverticulitis of intestine, part unspecified, without perforation or abscess without bleeding Status: Acute Assessment and Plan: it is dubious whether she actually has diverticulitis. scan showed hyperdense material in transverse colon which could be blood. Antibiotics have been started just in case there is diverticulitis. White blood count was elevated, 12,900 it appears she has had a previous sigmoid colon resection, probably for diverticular disease. Plan Start clear liquids and gradually advance diet or for further signs of bleeding in which case colonoscopy might be warranted. She would prefer not GI Consult Note Consult date/time: 09/27/22 06:51 HPI: Shellie Johnson is a 86 year old female who was admitted because she started passing blood per rectum last evening. She was not having any abdominal pain, nausea, fever, or other new symptoms. She came to emergency room where she was found have a hemoglobin of 12.8. She states that she had several bloody bowel movements at home. A CT scan of the abdomen does show diverticulosis and probable diverticulitis. The patient states she had an episode like this several years ago she was told that a blood vessel had burst the colonoscopy was done and that was the end of it. She thinks that the reason she is having an issue now is because she has been eating turtles with nuts in them for the past couple of weeks. She is thirsty this morning. She does take aspirin 81 mg per day and also indomethacin as needed for gout. She does not believe that she has ever had an ulcer. She denies seen black or tarry stools recently. Review of Systems Review of Systems: All systems reviewed & are unremarkable except as noted in HPI and below PMFSH Past Medical History Medical History Fistula Kidney stones Optional surgery tumor removed lower back(HIP) Surgical History Surgical History H/O lumpectomy x2 H/O total cystectomy H/O: hysterectomy Family History Family History Mother Family history of cardiovascular disease Acute myocardial infarction Hypertension Family history of elevated blood lipids Sibling Hypertension Social History Social History Smoking status: Former smoker Alcohol intake: never Substance use: never Lack of Transportation: No Lack of Food: Never True Current Housing: I Have Housing Concerned About Future Housing: No Difficulty Paying Gas/Electric Bills: No Difficulty Paying for Meds: No Currently Unemployed: No Education: High School Diploma/GED Difficulty w/ Childcare or Family Care: No Spiritual care concerns: No Meds Home Medications and Allergies Home Medications Medication Instructions Recorded Confirmed Type gabapentin 100 mg capsule 100 mg PO TID #90 caps 01/23/22 09/27/22 Rx levothyroxine 50 mcg tablet 50 mcg PO DAILY #90 tabs 01/23/22 09/27/22 Rx meclizine 25 mg tablet 25 mg PO TID #60 tabs 01/23/22 09/27/22 Rx metoprolol succinate 50 mg 50 mg PO BID #180 tabs 01/23/22 09/27/22 Rx tablet,extended release 24 hr simvastatin 20 mg tablet See Rx Instructions .Route 01/23/22 09/27/22 Rx .COMPLEX #90 tabs aspirin 81 mg tablet,delayed 81 mg PO DAILY 04/22/22 09/27/22 History release (Ad
[2022-09-27 09:50] LABS: Hemoglobin 11.5 g/dL (12.0-15.0)
--- NOTE | 2022-09-27 10:40 | PM.IMPN ---
Progress Note: A&P Assessment and Plan (1) Diverticular hemorrhage: Code(s): K57.31 - Diverticulosis of large intestine without perforation or abscess with bleeding Status: Acute Assessment and Plan: Hyperdense material focally in the transverse colon, as noted above. This could reflect active hemorrhage/GI bleeding, versus possibly calcified material other ingested material. 1.2 cm indeterminate right lower pole renal mass. Pre and postcontrast MR recommended to assess for enhancing/solid lesion, which would be suspicious for small renal cell carcinoma. Small hiatal hernia. Patient has red blood per rectum Possible lower GI bleeding due to diverticulitis Follow-up hemoglobin level Transfuse p.r.n. to keep h and h > 7 consulted Gastroenterology (2) Diverticulitis: Code(s): K57.92 - Diverticulitis of intestine, part unspecified, without perforation or abscess without bleeding Status: Acute Assessment and Plan: CT report hyerdense material focally in the transverse colon, as noted above. likely active hemorrhage 1.2 cm indeterminate right lower pole renal mass. pre and postcontrast MR recommended to assess for enhancing/solid lesion, which would be suspicous for small renal cell carcinoma small hiatal hernia zosyn started. consult GI laura stop zosyn as less likely diverticulitis. (3) Uncontrolled hypertension: Code(s): I10 - Essential (primary) hypertension Status: Acute Assessment and Plan: Start hydralazine IV during p.o. Optimize medication for better blood pressure control (4) Hyperlipidemia: Code(s): E78.5 - Hyperlipidemia, unspecified Status: Acute (5) Hypothyroidism: Code(s): E03.9 - Hypothyroidism, unspecified Status: Acute (6) GI bleeding: Code(s): K92.2 - Gastrointestinal hemorrhage, unspecified Status: Acute Assessment and Plan: liikely diverticular bleed. will contineu to monitor. GI on aboard. contineu to monito rh and h. (7) Type 2 diabetes mellitus without complications: Code(s): E11.9 - Type 2 diabetes mellitus without complications Status: Acute Assessment and Plan: Start aspart insulin sliding scale during NPO (8) Acute kidney injury superimposed on CKD: Code(s): N17.9 - Acute kidney failure, unspecified; N18.9 - Chronic kidney disease, unspecified Status: Acute Assessment and Plan: Elevated BUN creatinine above baseline Start normal saline IV Follow-up BMP urinalysis with resolution Subjective Date/time seen: 09/27/22 10:40 Interval history: no overnight events, continues to have intermittent bloody stool but slowing down. denies any abdominal pain, nausea, vomiting. Review of Systems Review of Systems: All systems reviewed & are unremarkable except as noted in HPI and below Exam Narrative: GENERAL: Pleasant, in no acute distress. Well-nourished. - EYES: EOMI. Anicteric. - HENT: Moist mucous membranes. - LUNGS: Clear to auscultation bilaterally, no wheezing, rhonchi, or rales. - CARDIOVASCULAR: Regular rate and rhythm. No murmur. No JVD. - ABDOMEN: Soft, non-tender and non-distended. No palpable masses. - EXTREMITIES: No edema. Peripheral pulses 2+. Non-tender. - NEUROLOGIC: No focal neurological deficits. CN II-XII grossly intact. - PSYCHIATRIC: Awake, Alert and oriented x 3. Appropriate mood and affect. - SKIN: No rashes or lesions. Warm. - LYMPH: No cervical lymphadenopathy. Objective Data Vital Signs Vital Signs: Vital Signs - 24 hr 09/26/22 23:09 09/27/22 00:02 09/27/22 02:16 Temperature 97.7 F Pulse Rate 89 Respiratory Rate 17 Blood Pressure 171/125 H 182/98 H 142/71 H Pulse Oximetry 97 Oxygen Delivery Room Air 09/27/22 03:19 09/27/22 03:30 09/27/22 03:31 Temperature Pulse Rate 77 75 80 Respiratory Rate 19 24 H 21 H Blood Pressure 110/74 Pulse Oximetry Oxygen Delivery 09/27/22 03:50 09/27
[2022-09-27] MEDS: LEVOTHYROXINE SODIUM 50 MCG TABLET PO (10:52)
[2022-09-27] MEDS: GABAPENTIN 100 MG CAPSULE PO ×3 (10:54→17:41)
[2022-09-27] MEDS: INDAPAMIDE 2.5 MG TABLET PO (10:56)
[2022-09-27] MEDS: SIMVASTATIN 20 MG TABLET BY MOUTH (10:57)
[2022-09-27] MEDS: METOPROLOL SUCCINATE EXT REL 50 MG TABCR PO ×2 (10:58→20:12)
[2022-09-27] MEDS: amLODIPine BESYLATE 5 MG TABLET PO (11:03)
[2022-09-27] MEDS: PANTOPRAZOLE 40 MG TABLET PO (11:04)
[2022-09-27] MEDS: IRBESARTAN 150 MG TABLET 300 MG PO (11:12)
[2022-09-27 11:34] LABS: Glucose Point of Care 192 mg/dl (65-105)
[2022-09-27 16:03] LABS: Hematocrit 32.9 % (37.0-47.0); Hemoglobin 11.1 g/dL (12.0-15.0)
[2022-09-27 22:41] LABS: Hematocrit 32.3 % (37.0-47.0); Hemoglobin 10.7 g/dL (12.0-15.0)
[2022-09-28] VITALS (17 sets, daily range): BP systolic 118–147; BP diastolic 59–81; PULSE 66–86; RESP 16–20; TEMP 36.3–37.4; O2SAT 93–98
[2022-09-28 05:11] LABS: Basophils Absolute Auto 0.1 K/mm3 (0.0-0.1); Eosinophils Absolute Auto 0.5 K/mm3 (0-0.3); Eosinophils Percent Auto 5.4 % (0-4.4); Hematocrit 32.2 % (37.0-47.0); Hemoglobin 10.7 g/dL (12.0-15.0); Immature Granulocyte Absolute 0.03 K/mm3 (0.00-0.031); Immature Granulocyte Percent A 0.3 % (0-0.5); Lymphocytes Absolute Auto 2.29 K/mm3 (0.9-3.2); Lymphocytes Percent Auto 26.5 % (18.3-44.2); Mean Corpuscular HGB Conc 33.2 g/dl (32-36); Mean Corpuscular Hemoglobin 29.4 pg (26-34); Mean Corpuscular Volume 88.5 fl (80-100); Mean Platelet Volume 11.4 fl (7.4-10.4); Monocytes Absolute Auto 0.6 K/mm3 (0.1-0.6); Monocytes Percent Auto 7.3 % (2.6-8.5); Neutrophils Absolute Auto 5.1 K/mm3 (1.3-6.7); Neutrophils Percent Auto 59.5 % (45.5-73.1); Platelet Count Result 189 k/mm3 (150-375); Red Blood Count 3.64 M/mm3 (4.2-5.4); Red Cell Distribution Width 13.6 % (11.5-14.5); White Blood Count 8.6 K/mm3 (4.5-10.0)
[2022-09-28 05:25] LABS: Anion Gap 5 mmol/L (8-16); Blood Urea Nitrogen 14 mg/dL (7-17); Calcium 8.2 mg/dL (8.4-10.2); Carbon Dioxide 27 mmol/L (22-30); Chloride 105 mmol/L (98-107); Estimated CRCL calculation 42 ml/min; Estimated Glomerular Filt Rate > 60; Glucose 116 mg/dL (65-110); Sodium 137 mmol/L (137-145)
[2022-09-28] MEDS: LEVOTHYROXINE SODIUM 50 MCG TABLET PO (06:08)
[2022-09-28] MEDS: SODIUM CHLORIDE 0.9% IV 1,000 ML 125 ML IV CONT (06:59)
[2022-09-28] MEDS: amLODIPine BESYLATE 5 MG TABLET PO (08:13)
[2022-09-28] MEDS: GABAPENTIN 100 MG CAPSULE PO ×3 (08:13→16:43)
[2022-09-28] MEDS: IRBESARTAN 150 MG TABLET 300 MG PO (08:13)
[2022-09-28] MEDS: PANTOPRAZOLE 40 MG TABLET PO (08:13)
[2022-09-28] MEDS: METOPROLOL SUCCINATE EXT REL 50 MG TABCR PO ×2 (08:15→20:14)
[2022-09-28] MEDS: SIMVASTATIN 20 MG TABLET BY MOUTH (08:16)
[2022-09-28] MEDS: INDAPAMIDE 2.5 MG TABLET PO (11:35)
--- NOTE | 2022-09-28 15:03 | PM.IMPN ---
Progress Note: A&P Assessment and Plan (1) Diverticular hemorrhage: Code(s): K57.31 - Diverticulosis of large intestine without perforation or abscess with bleeding Status: Acute Assessment and Plan: Hyperdense material focally in the transverse colon, as noted above. This could reflect active hemorrhage/GI bleeding, versus possibly calcified material other ingested material. 1.2 cm indeterminate right lower pole renal mass. Pre and postcontrast MR recommended to assess for enhancing/solid lesion, which would be suspicious for small renal cell carcinoma. Small hiatal hernia. Patient has red blood per rectum Possible lower GI bleeding due to diverticulitis Follow-up hemoglobin level Transfuse p.r.n. to keep h and h > 7 consulted Gastroenterology . Slight drop in H&H however could be dilutional as well No further GI bleed since yesterday morning Will advance diet further Monitor H&H (2) Diverticulitis: Code(s): K57.92 - Diverticulitis of intestine, part unspecified, without perforation or abscess without bleeding Status: Acute Assessment and Plan: CT report hyerdense material focally in the transverse colon, as noted above. likely active hemorrhage 1.2 cm indeterminate right lower pole renal mass. pre and postcontrast MR recommended to assess for enhancing/solid lesion, which would be suspicous for small renal cell carcinoma small hiatal hernia zosyn started. consult GI laura stop zosyn as less likely diverticulitis. (3) Uncontrolled hypertension: Code(s): I10 - Essential (primary) hypertension Status: Acute Assessment and Plan: Start hydralazine IV during p.o. Optimize medication for better blood pressure control (4) Hyperlipidemia: Code(s): E78.5 - Hyperlipidemia, unspecified Status: Acute (5) Hypothyroidism: Code(s): E03.9 - Hypothyroidism, unspecified Status: Acute (6) GI bleeding: Code(s): K92.2 - Gastrointestinal hemorrhage, unspecified Status: Acute Assessment and Plan: liikely diverticular bleed. will contineu to monitor. GI on aboard. contineu to monito rh and h. (7) Type 2 diabetes mellitus without complications: Code(s): E11.9 - Type 2 diabetes mellitus without complications Status: Acute Assessment and Plan: Start aspart insulin sliding scale (8) Acute kidney injury superimposed on CKD: Code(s): N17.9 - Acute kidney failure, unspecified; N18.9 - Chronic kidney disease, unspecified Status: Acute Assessment and Plan: Elevated BUN creatinine above baseline Start normal saline IV Follow-up BMP urinalysis with resolution Subjective Date/time seen: 09/28/22 15:03 Interval history: no further bleeding since yesterday morning. Denies any abdominal pain. Tolerating diet which is clear liquid this morning. No nausea vomiting. Review of Systems Review of Systems: All systems reviewed & are unremarkable except as noted in HPI and below Exam Narrative: GENERAL: Pleasant, in no acute distress. Well-nourished. - EYES: EOMI. Anicteric. - HENT: Moist mucous membranes. - LUNGS: Clear to auscultation bilaterally, no wheezing, rhonchi, or rales. - CARDIOVASCULAR: Regular rate and rhythm. No murmur. No JVD. - ABDOMEN: Soft, non-tender and non-distended. No palpable masses. - EXTREMITIES: No edema. Peripheral pulses 2+. Non-tender. - NEUROLOGIC: No focal neurological deficits. CN II-XII grossly intact. - PSYCHIATRIC: Awake, Alert and oriented x 3. Appropriate mood and affect. - SKIN: No rashes or lesions. Warm. - LYMPH: No cervical lymphadenopathy. Objective Data Vital Signs Vital Signs: Vital Signs - 24 hr 09/27/22 15:21 09/27/22 16:18 09/27/22 16:00 Temperature 97.9 F Pulse Rate 82 Respiratory Rate 18 Blood Pressure 135/70 Pulse Oximetry 97 98 Oxygen Delivery Room Air 09/27/22 16:00 09/27/22 18:00 09/27/22 20:12 Temperature P
--- NOTE | 2022-09-28 17:03 | WPDGIPROGNO ---
Progress Note: A&P Assessment and Plan (1) GI bleeding: Code(s): K92.2 - Gastrointestinal hemorrhage, unspecified Status: Acute Assessment and Plan: no more bleeding since admission and now h/h stable tolerating diet probably home tomorrow if no more bleeding (2) Diverticular hemorrhage: Code(s): K57.31 - Diverticulosis of large intestine without perforation or abscess with bleeding Status: Acute Assessment and Plan: most likely cause of presentation patient prefers conservative management (3) Uncontrolled hypertension: Code(s): I10 - Essential (primary) hypertension Status: Acute (4) Acute blood loss anemia: Code(s): D62 - Acute posthemorrhagic anemia Status: Acute Subjective Date/time seen: 09/28/22 17:03 Interval history: no BM since admission and doing much better, hoping to go home tomorrow Review of Systems Review of Systems: All systems reviewed & are unremarkable except as noted in HPI and below Exam Const: General: comfortable and no acute distress HENMT: Face/Nose/Sinus: Normal nares present Eyes: General: appearance normal, both eyes and all related structures Neck: Neck: no JVD Resp: Auscultation: clear to auscultation bilaterally Cardio: Rate: regular rate Rhythm: regular rhythm GI: Inspection: non-distended GI Palp: Yes Soft to palpation, No Tenderness to palpation present (GI) and No Guarding due to palpation present (GI) Skin: General skin exam: normal color Neuro: Speech: normal speech Motor exam (neuro): 5/5 motor strength present throughout Extrem: General: normal to inspection Psych: Mental Status: mental status grossly normal Objective Data Vital Signs Vital Signs: Vital Signs - 24 hr 09/27/22 18:00 09/27/22 20:12 09/27/22 20:00 Temperature 98.5 F Pulse Rate 83 85 82 Respiratory Rate 16 Blood Pressure 152/61 H Pulse Oximetry 99 Oxygen Delivery 09/27/22 20:00 09/27/22 23:07 09/27/22 22:00 Temperature 98.1 F Pulse Rate 77 71 71 Respiratory Rate 16 Blood Pressure 115/81 Pulse Oximetry 96 Oxygen Delivery 09/28/22 00:00 09/28/22 02:00 09/28/22 04:00 Temperature 97.8 F Pulse Rate 76 72 76 Respiratory Rate 16 Blood Pressure 138/76 Pulse Oximetry 98 Oxygen Delivery 09/28/22 04:00 09/28/22 06:00 09/28/22 08:15 Temperature Pulse Rate 66 69 73 Respiratory Rate Blood Pressure Pulse Oximetry Oxygen Delivery 09/28/22 08:22 09/28/22 08:00 09/28/22 08:00 Temperature 97.4 F L Pulse Rate 71 79 Respiratory Rate 20 Blood Pressure 147/59 H Pulse Oximetry 98 98 Oxygen Delivery Room Air 09/28/22 10:00 09/28/22 12:01 09/28/22 12:00 Temperature 98.2 F Pulse Rate 79 68 74 Respiratory Rate 20 Blood Pressure 118/62 Pulse Oximetry 93 Oxygen Delivery 09/28/22 12:00 09/28/22 14:00 09/28/22 15:58 Temperature 98.8 F Pulse Rate 84 86 Respiratory Rate 18 Blood Pressure 146/66 H Pulse Oximetry 93 96 Oxygen Delivery Room Air 09/28/22 16:00 09/28/22 16:00 Temperature Pulse Rate 76 Respiratory Rate Blood Pressure Pulse Oximetry 96 Oxygen Delivery Room Air Intake/Output Intake/Output: Intake & Output 09/25/22 09/26/22 09/27/22 09/28/22 23:59 23:59 23:59 23:59 Intake Total 2530 2020 Output Total 800 3100 Balance 1730 -1361 Meds/Results Medications: Active Medications Generic Name Dose Route Start Last Admin Trade Name Freq PRN Reason Stop Dose Admin Amlodipine Besylate 5 mg 09/27/22 09:00 09/28/22 08:13 Amlodipine Besylate 5 Mg Tablet PO 5 mg DAILY VIKAS Administration Dextrose 12.5 gm 09/27/22 03:14 Dextrose 50% 25 Gm/50 Ml Syringe IV PUSH PRN PRN Hypoglycemia Protocol Gabapentin 100 mg 09/27/22 09:00 09/28/22 16:43 Gabapentin 100 Mg Capsule PO 100 mg TID VIKAS Administration Glucagon 1 mg 09/27/22 03:14 Glucago
[2022-09-29] VITALS (9 sets, daily range): BP systolic 124–161; BP diastolic 55–83; PULSE 61–81; RESP 16–18; TEMP 36.3–36.6; O2SAT 94–98
[2022-09-29 04:17] LABS: Basophils Absolute Auto 0.1 K/mm3 (0.0-0.1); Basophils Percent Auto 1.3 % (0.2-1.2); Eosinophils Absolute Auto 0.4 K/mm3 (0-0.3); Eosinophils Percent Auto 4.2 % (0-4.4); Hematocrit 32.4 % (37.0-47.0); Hemoglobin 10.8 g/dL (12.0-15.0); Immature Granulocyte Absolute 0.04 K/mm3 (0.00-0.031); Immature Granulocyte Percent A 0.4 % (0-0.5); Lymphocytes Absolute Auto 2.55 K/mm3 (0.9-3.2); Lymphocytes Percent Auto 27.7 % (18.3-44.2); Mean Corpuscular HGB Conc 33.3 g/dl (32-36); Mean Corpuscular Hemoglobin 29.6 pg (26-34); Mean Corpuscular Volume 88.8 fl (80-100); Mean Platelet Volume 11.4 fl (7.4-10.4); Monocytes Absolute Auto 0.8 K/mm3 (0.1-0.6); Monocytes Percent Auto 8.4 % (2.6-8.5); Neutrophils Absolute Auto 5.3 K/mm3 (1.3-6.7); Platelet Count Result 198 k/mm3 (150-375); Red Blood Count 3.65 M/mm3 (4.2-5.4); Red Cell Distribution Width 13.5 % (11.5-14.5); White Blood Count 9.2 K/mm3 (4.5-10.0)
[2022-09-29 04:27] LABS: Alanine Aminotransferase 23 U/L (6-35); Albumin Level 3.5 g/dL (3.5-5.1); Alkaline Phosphatase 68 U/L (38-126); Anion Gap 7 mmol/L (8-16); Aspartate Amino Transferase 22 U/L (14-36); Bilirubin,Total 0.4 mg/dL (0.2-1.3); Blood Urea Nitrogen 16 mg/dL (7-17); Calcium 8.7 mg/dL (8.4-10.2); Carbon Dioxide 27 mmol/L (22-30); Chloride 105 mmol/L (98-107); Estimated CRCL calculation 42 ml/min; Estimated Glomerular Filt Rate > 60; Glucose 123 mg/dL (65-110); Magnesium 1.7 mg/dL (1.6-2.3); Sodium 139 mmol/L (137-145)
[2022-09-29] MEDS: LEVOTHYROXINE SODIUM 50 MCG TABLET PO (06:18)
[2022-09-29] MEDS: POTASSIUM CHLORIDE 20 MEQ TABLET 40 MEQ PO (08:40)
[2022-09-29] MEDS: IRBESARTAN 150 MG TABLET 300 MG PO (08:41)
[2022-09-29] MEDS: INDAPAMIDE 2.5 MG TABLET PO (08:41)
[2022-09-29] MEDS: amLODIPine BESYLATE 5 MG TABLET PO (08:41)
[2022-09-29] MEDS: GABAPENTIN 100 MG CAPSULE PO ×2 (08:41→13:17)
[2022-09-29] MEDS: SIMVASTATIN 20 MG TABLET BY MOUTH (08:42)
[2022-09-29] MEDS: PANTOPRAZOLE 40 MG TABLET PO (08:42)
[2022-09-29] MEDS: METOPROLOL SUCCINATE EXT REL 50 MG TABCR PO (08:42)
--- NOTE | 2022-09-29 13:12 | PM.DS ---
DS: Admitting Diagnosis Discharge Date Admitting Diagnosis hematochezia DS: Discharge Diagnosis Discharge Diagnosis (1) Diverticular hemorrhage: Code(s): K57.31 - Diverticulosis of large intestine without perforation or abscess with bleeding Status: Acute (2) Diverticulitis: Code(s): K57.92 - Diverticulitis of intestine, part unspecified, without perforation or abscess without bleeding Status: Acute (3) Uncontrolled hypertension: Code(s): I10 - Essential (primary) hypertension Status: Acute (4) Hyperlipidemia: Code(s): E78.5 - Hyperlipidemia, unspecified Status: Acute (5) Hypothyroidism: Code(s): E03.9 - Hypothyroidism, unspecified Status: Acute (6) GI bleeding: Code(s): K92.2 - Gastrointestinal hemorrhage, unspecified Status: Acute (7) Type 2 diabetes mellitus without complications: Code(s): E11.9 - Type 2 diabetes mellitus without complications Status: Acute (8) Acute kidney injury superimposed on CKD: Code(s): N17.9 - Acute kidney failure, unspecified; N18.9 - Chronic kidney disease, unspecified Status: Acute DS: Summary Hospital Course Hospital Course: # Lower GI bleed: With hematochezia /bleeding per rectum CT abdomen showed: Hyperdense material focally in the transverse colon, as noted above. This could reflect active hemorrhage/GI bleeding, versus possibly calcified material other ingested material. 1.2 cm indeterminate right lower pole renal mass. Pre and postcontrast MR recommended to assess for enhancing/solid lesion, which would be suspicious for small renal cell carcinoma. Small hiatal hernia. likely diverticular bleed H&H monitored Hemoglobin dropped from 13-10 hemodynamics remained stable. Did not require any transfusion. H&H remained stable in tends Patient opted for no colonoscopy evaluation Her bleeding slowed down and her diet was advanced which she tolerated well. She did not have any abdominal pain associated with it and hence not suspected for diverticulitis. GI was consulted during the hospital stay. # small hiatal hernia # uncontrolled hypertension: Start hydralazine IV during p.o. Optimize medication for better blood pressure control # hyperlipidemia: # hypothyroidism: # type 2 diabetes mellitus without complication: Start aspart insulin sliding scale # ROSETTE superimposed on CKD stage 3: Elevated BUN creatinine above baseline Start normal saline IV Follow-up BMP urinalysis with resolution Time Spent with Patient Time attestation: Total time spent providing and/or coordinating discharge services: 45 minutes Exam Narrative: GENERAL: Pleasant, in no acute distress. Well-nourished. - EYES: EOMI. Anicteric. - HENT: Moist mucous membranes. - LUNGS: Clear to auscultation bilaterally, no wheezing, rhonchi, or rales. - CARDIOVASCULAR: Regular rate and rhythm. No murmur. No JVD. - ABDOMEN: Soft, non-tender and non-distended. No palpable masses. - EXTREMITIES: No edema. Peripheral pulses 2+. Non-tender. - NEUROLOGIC: No focal neurological deficits. CN II-XII grossly intact. - PSYCHIATRIC: Awake, Alert and oriented x 3. Appropriate mood and affect. - SKIN: No rashes or lesions. Warm. - LYMPH: No cervical lymphadenopathy. DS: Data Data Completed and Pending Labs on day of discharge: Labs from last 24 hours 09/29/22 09/29/22 03:58 03:58 WBC 9.2 RBC 3.65 L Hgb 10.8 L Hct 32.4 L MCV 88.8 MCH 29.6 MCHC 33.3 RDW 13.5 Plt Count 198 MPV 11.4 H Immature Gran % (Auto) 0.4 Neut % (Auto) 58.0 Lymph % (Auto) 27.7 [place] % (Auto) 8.4 Eos % (Auto) 4.2 Baso % (Auto) 1.3 H Lymph # (Auto) 2.55 [place] # (Auto) 0.8 H Eos # (Auto) 0.4 H Baso # (Auto) 0.1 Abs Immat Gran (auto) 0.04 H Absolute Neuts (auto) 5.3 Absolute Nucleated RBC 0.0 Nucleated RBC % 0.0 Sodium 139 Potassium 3.0 L Chloride 105 Carbon Dioxid
== END 2022-09-29 14:45 | disposition home or self-care (01) | DRG 378 ==
LOC: ANHED 09-27 02:41 → ANHIMU 09-27 04:04
PROVIDERS: Admitting Provider Hospitalist; Emergency Provider Family Medicine; PCP Family Medicine; Visit Provider Internal Medicine
DX: K57.31 Diverticulosis of large intestine without perforation or abscess with bleeding (principal); D62 Acute posthemorrhagic anemia; N17.9 Acute kidney failure, unspecified; I12.9 Hypertensive chronic kidney disease with stage 1 through stage 4 chronic kidney disease, or unspecified chronic kidney disease; N18.30 Chronic kidney disease, stage 3 unspecified; E78.5 Hyperlipidemia, unspecified; E03.9 Hypothyroidism, unspecified; E11.9 Type 2 diabetes mellitus without complications; N28.89 Other specified disorders of kidney and ureter; K44.9 Diaphragmatic hernia without obstruction or gangrene; Z20.822 Contact with and (suspected) exposure to COVID-19; Z79.82 Long term (current) use of aspirin
CPT/HCPCS: 36415; 74177; 80048; 80053; 82948; 83735; 85014; 85018; 85025; 85610; 85730; 86850; 86900; 86901; 87636; 96365; 99285; A9270; J2543; J7030; Q9967

== ENCOUNTER 2022-10-17 10:07 | Outpatient (CLI) | payer MEDICARE, BC, SELFPAY ==
[2022-10-17 19:55] LABS: Anion Gap 5 mmol/L (8-16); Blood Urea Nitrogen 29 mg/dL (7-17); Calcium 9.1 mg/dL (8.4-10.2); Carbon Dioxide 29 mmol/L (22-30); Chloride 103 mmol/L (98-107); Estimated Glomerular Filt Rate 60; Glucose 154 mg/dL (65-110); Potassium 3.8 mmol/L (3.4-5.0); Sodium 137 mmol/L (137-145)
== END 2022-10-17 10:08 | disposition home or self-care (01) ==
LOC: ANHGOSHLAB 10:09
PROVIDERS: PCP Family Medicine; Visit Provider Family Medicine
DX: E87.6 Hypokalemia (principal)
CPT/HCPCS: 36415; 80048

== ENCOUNTER 2023-06-03 13:29 | Outpatient (CLI) | payer MEDICARE, BC, SELFPAY ==
--- NOTE | ~2023-06-03 | MM_ITS ---
EXAMINATION: MM screening [facility] BI w luisana HISTORY: Screening mammogram TECHNIQUE: Craniocaudal and mediolateral oblique 3-D tomosynthesis images were obtained and synthetic 2-D images were generated. CAD analysis was submitted and interpreted. COMPARISON: 03/20/2022, 02/28/2021, 09/11/2019 BREAST PARENCHYMAL COMPOSITION: There are scattered areas of fibroglandular density. FINDINGS: No suspicious mass, calcification, or architectural distortion are identified in either chrissy ast to suggest malignancy. There has been no suspicious interval change. IMPRESSION: 1. No mammographic evidence of malignancy. 2. Recommend routine screening mammography while the patient remains in good health. BI-RADS Category 1: Negative Reviewed, dictated and finalized at location A. IMPRESSION: 1. No mammographic evidence of malignancy. 2. Recommend routine screening mammography while the patient remains in good he alth. BI-RADS Category 1: Negative
== END 2023-06-03 13:30 | disposition home or self-care (01) ==
PROVIDERS: PCP Family Medicine; Visit Provider Family Medicine
DX: Z12.31 Encounter for screening mammogram for malignant neoplasm of breast (principal)
CPT/HCPCS: 77063; 77067

== ENCOUNTER 2023-08-15 11:20 | Outpatient (CLI) | payer MEDICARE, BC, SELFPAY ==
[2023-08-15 18:37] LABS: Iron 96 ug/dL (37-170)
[2023-08-15 18:39] LABS: Alanine Aminotransferase 20 U/L (6-35); Albumin Level 4.4 g/dL (3.5-5.1); Alkaline Phosphatase 80 U/L (38-126); Anion Gap 9 mmol/L (8-16); Aspartate Amino Transferase 37 U/L (14-36); Basophils Absolute Auto 0.1 K/mm3 (0.0-0.1); Basophils Percent Auto 1.4 % (0.2-1.2); Bilirubin,Total 0.7 mg/dL (0.2-1.3); Blood Urea Nitrogen 25 mg/dL (7-17); Calcium 10.2 mg/dL (8.4-10.2); Carbon Dioxide 31 mmol/L (22-30); Chloride 101 mmol/L (98-107); Cholesterol 267 mg/dL (0-200); Eosinophils Absolute Auto 0.2 K/mm3 (0-0.3); Eosinophils Percent Auto 1.7 % (0-4.4); Estimated Glomerular Filt Rate 60; Glucose 125 mg/dL (65-110); HDL Direct 35 mg/dL; Hematocrit 47.4 % (37.0-47.0); Hemoglobin 15.2 g/dL (12.0-15.0); Immature Granulocyte Absolute 0.04 K/mm3 (0.00-0.031); Immature Granulocyte Percent A 0.4 % (0-0.5); Lymphocytes Absolute Auto 2.15 K/mm3 (0.9-3.2); Lymphocytes Percent Auto 20.8 % (18.3-44.2); Mean Corpuscular HGB Conc 32.1 g/dl (32-36); Mean Corpuscular Hemoglobin 28.6 pg (26-34); Mean Corpuscular Volume 89.1 fl (80-100); Mean Platelet Volume 11.7 fl (7.4-10.4); Monocytes Absolute Auto 0.9 K/mm3 (0.1-0.6); Monocytes Percent Auto 8.2 % (2.6-8.5); Neutrophils Percent Auto 67.5 % (45.5-73.1); Platelet Count Result 256 k/mm3 (150-375); Potassium 3.8 mmol/L (3.4-5.0); Red Blood Count 5.32 M/mm3 (4.2-5.4); Red Cell Distribution Width 14.3 % (11.5-14.5); Sodium 141 mmol/L (137-145); Triglycerides 484 mg/dL (<150); Uric Acid 8.8 mg/dL (2.5-7.5); White Blood Count 10.3 K/mm3 (4.5-10.0)
[2023-08-15 18:43] LABS: Hemoglobin A1C 7.6 % (<5.7)
[2023-08-15 18:46] LABS: Percent Iron Saturation 28 % (20-50)
[2023-08-15 18:50] LABS: LDL Cholesterol Direct 117 mg/dL
== END 2023-08-15 11:21 | disposition home or self-care (01) ==
LOC: ANHGOSHLAB 11:22
PROVIDERS: PCP Family Medicine; Visit Provider Family Medicine
DX: R25.2 Cramp and spasm (principal); D50.9 Iron deficiency anemia, unspecified; E11.9 Type 2 diabetes mellitus without complications; R53.83 Other fatigue; M10.9 Gout, unspecified; Z13.228 Encounter for screening for other metabolic disorders; Z13.220 Encounter for screening for lipoid disorders; Z13.29 Encounter for screening for other suspected endocrine disorder
CPT/HCPCS: 36415; 80053; 80061; 82728; 83036; 83540; 83550; 83735; 84443; 84550; 85025

== ENCOUNTER 2023-11-26 09:03 | Inpatient (IN) | payer MEDICARE, BC, SELFPAY ==
[2023-11-26] VITALS (33 sets, daily range): BP systolic 114–182; BP diastolic 55–141; PULSE 62–86; RESP 12–22; TEMP 35.9–36.8; O2SAT 90–100; BMI 25.4
--- NOTE | ~2023-11-26 | CT_ITS ---
EXAMINATION: CT abdomen pelvis w con DATE: 11/26/2023 10:24 INDICATION: Rectal bleeding. TECHNIQUE: Computed tomography (CT) of the abdomen and pelvis was performed with 100 mL Omnipaque 350 intravenous contrast. Automated exposure control and iterative reconstruction technique were employe d. The dose-length product was 347.37 mGy-cm. COMPARISON: CT abdomen and pelvis 09/27/2022 FINDINGS: The visualized portions of the lung bases demonstrate emphysema and mild atelectasis. Parti ally visualized is a 2.3 cm nodule in right lower lobe. No pleural effusion. The heart size is normal . No pericardial effusion. There is a small sliding hiatal hernia. There is a 3 mm cyst in the liver. The gallbladder, spleen, pancreas, and adrenal glands are normal. There is a 15 mm mass in right kid sam lower pole measuring soft tissue attenuation. There are cysts in the kidneys measuring up to 11.9 cm on the left. There is calcified atherosclerosis of the aorta and many of the other arteries. Ther e is an anastomosis in the rectosigmoid. There is diverticulosis of the colon without evidence of div erticulitis. The appendix is not visualized. There are no pathologically enlarged lymph nodes. There is no free intraperitoneal fluid. There is severe lumbar spondylosis. IMPRESSION: 1. 2.3 cm nodule in right lung lower lobe, consistent with primary bronchogenic carcinoma. Noncontras t chest CT is recommended. 2. 15 mm right kidney mass, which may be a hemorrhagic cyst or less likely renal cell carcinoma. [facility] CT without and with contrast is recommended. Reviewed, dictated and finalized at location A. IMPRESSION: 1. 2.3 cm nodule in right lung lower lobe, consistent with primary bronchogenic carcinoma. Noncontrast chest CT is recommended. 2. 15 mm right kidney mass, which may be a hemorrhagic cyst or less likely jeet l cell carcinoma. Abdomen CT without and with contrast is recommended.
--- NOTE | ~2023-11-26 | CT_ITS ---
EXAMINATION:CT diagnostic chest wo con DATE: 11/26/2023 11:27 INDICATION: Right lung mass. TECHNIQUE: Computed tomography (CT) of the chest was performed without intravenous contrast. Automate d exposure control and iterative reconstruction technique were employed. The dose-length product (DLP ) was 157.14 mGy-cm. COMPARISON: CT abdomen and pelvis 11/26/2023 FINDINGS: There is moderate emphysema. There is mild atelectasis bilaterally. A calcified right middl e lobe nodule is consistent with old granulomatous disease. There is a cluster of noncalcified nodule s in right middle lobe measuring up to 5 mm, likely granulomatous disease. There are centrilobular no dules in posterior segment right upper lobe, consistent with mild infection. There is a 2.3 cm nodule in right lung lower lobe. No pleural effusion. The heart size is normal. There are coronary artery c alcifications. No pericardial effusion. There is a small sliding hiatal hernia. There are cysts in th e kidneys measuring up to 11.7 cm on the left. There is mild thoracic spondylosis. IMPRESSION: 1. 2.3 cm nodule in right lung lower lobe, consistent with primary bronchogenic carcinoma. CT-guided biopsy is recommended. 2. Moderate emphysema. Reviewed, dictated and finalized at location A.
--- NOTE | ~2023-11-26 | XR_ITS ---
EXAMINATION: XR chest 1V portable DATE: 11/28/2023 14:54 INDICATION: Right lung nodule status post percutaneous biopsy. TECHNIQUE: A single frontal view of the chest was obtained. COMPARISON: Chest single view at 12:52 PM FINDINGS: There is a nodule in right lung lower lobe. No pleural effusion or pneumothorax. The heart size is normal. IMPRESSION: 1. Nodule in right lung lower lobe suspicious for primary bronchogenic carcinoma. Reviewed, dictated and finalized at location A. IMPRESSION: 1. Nodule in right lung lower lobe suspicious for primary bronchogenic carcinom a.
--- NOTE | ~2023-11-26 | CT_ITS ---
EXAMINATION: CT biopsy lung w/imaging DATE: 11/28/2023 12:05 INDICATION: Right lung lower lobe nodule. TECHNIQUE: The procedure including the risks, benefits, and alternatives and possibility of chest tub e placement were discussed with the patient. Risks discussed included infection, hemorrhage, approxim ately 1/3 risk of pneumothorax, approximately 1/10 risk of pneumothorax severe enough to warrant ches t tube placement, and rarely . The patient understood the risks and agreed to proceed. The patie nt was placed prone. The skin overlying the right lung was prepped and draped in sterile fashion. A nesthetic was administered with 1% lidocaine subcutaneously. A 19 gauge outer needle was advanced un yuriy CT guidance to the lesion of interest. A 20 gauge core biopsy needle was then used to obtain 3 co re biopsy specimens. The needle was removed and the entry site was cleaned and dressed. The mA was ad justed according to patient size. Iterative reconstruction technique was employed. The dose-length pr oduct was 140.05 mGy-cm. There were no immediate complications. FINDINGS: CT images demonstrate the outer needle tip adjacent to a 2.3 cm nodule in right lung lower lobe. IMPRESSION: 1. CT-guided core needle biopsy of a nodule in right lung lower lobe. Reviewed, dictated and finalized at location A.
--- NOTE | ~2023-11-26 | XR_ITS ---
EXAMINATION: XR chest 1V portable DATE: 11/28/2023 12:55 INDICATION: Right lung nodule status post percutaneous biopsy. TECHNIQUE: A single frontal view of the chest was obtained. COMPARISON: Chest single view at 11:48 AM FINDINGS: There is a nodule in right lung lower lobe. There is mild atelectasis at left lung base. No pleural effusion or pneumothorax. The heart size is normal. IMPRESSION: 1. Nodule in right lung lower lobe suspicious for primary bronchogenic carcinoma. Reviewed, dictated and finalized at location A. IMPRESSION: 1. Nodule in right lung lower lobe suspicious for primary bronchogenic carcinom a.
--- NOTE | ~2023-11-26 | XR_ITS ---
EXAMINATION: XR chest 1V DATE: 11/28/2023 11:55 INDICATION: Right lung nodule status post percutaneous biopsy. TECHNIQUE: A single frontal view of the chest was obtained. COMPARISON: Chest 2 views 08/15/2022, chest CT 11/26/2023 FINDINGS: There is a nodule in right lower lobe. No pleural effusion or pneumothorax. The heart size is normal. IMPRESSION: 1. Right lower lobe nodule suspicious for primary bronchogenic carcinoma. Reviewed, dictated and finalized at location A.
[2023-11-26 09:36] LABS: Basophils Absolute Auto 0.1 K/mm3 (0.0-0.1); Eosinophils Absolute Auto 0.2 K/mm3 (0-0.3); Eosinophils Percent Auto 1.7 % (0-4.4); Hematocrit 41.4 % (37.0-47.0); Hemoglobin 13.7 g/dL (12.0-15.0); Immature Granulocyte Absolute 0.03 K/mm3 (0.00-0.031); Immature Granulocyte Percent A 0.3 % (0-0.5); Lymphocytes Absolute Auto 1.83 K/mm3 (0.9-3.2); Lymphocytes Percent Auto 17.9 % (18.3-44.2); Mean Corpuscular HGB Conc 33.1 g/dl (32-36); Mean Corpuscular Hemoglobin 28.7 pg (26-34); Mean Corpuscular Volume 86.6 fl (80-100); Mean Platelet Volume 11.8 fl (7.4-10.4); Monocytes Absolute Auto 0.8 K/mm3 (0.1-0.6); Monocytes Percent Auto 7.9 % (2.6-8.5); Neutrophils Absolute Auto 7.3 K/mm3 (1.3-6.7); Neutrophils Percent Auto 71.2 % (45.5-73.1); Platelet Count Result 225 k/mm3 (150-375); Red Blood Count 4.78 M/mm3 (4.2-5.4); White Blood Count 10.2 K/mm3 (4.5-10.0)
[2023-11-26 09:47] LABS: INR 0.9; Prothrombin Time 12.9 Seconds (11.1-14.7)
[2023-11-26 09:48] LABS: Partial Thromboplastin Time 24.1 Seconds (22.3-36.8)
[2023-11-26 09:51] LABS: Alanine Aminotransferase 17 U/L (6-35); Albumin Level 4.4 g/dL (3.5-5.1); Alkaline Phosphatase 69 U/L (38-126); Anion Gap 10 mmol/L (4-12); Aspartate Amino Transferase 27 U/L (14-36); Bilirubin,Total 0.6 mg/dL (0.2-1.3); Blood Urea Nitrogen 37 mg/dL (7-17); Calcium 9.7 mg/dL (8.4-10.2); Carbon Dioxide 23 mmol/L (22-30); Chloride 105 mmol/L (98-107); Estimated CRCL calculation 32 ml/min; Estimated Glomerular Filt Rate > 60; Glucose 146 mg/dL (65-110); Potassium 3.7 mmol/L (3.4-5.0); Sodium 138 mmol/L (137-145)
--- NOTE | 2023-11-26 09:59 | ED.GIBLEED ---
HPI - GI Bleed General Chief complaint: GI Bleed <DARNELL Dallas Last Filed: 11/26/23 18:06> Stated complaint: rectal bleed <DARNELL Dallas Last Filed: 11/26/23 18:06> Time Seen by Provider: 11/26/23 09:10 <DARNELL Dallas Last Filed: 11/26/23 18:06> Source: patient <DARNELL Dallas Last Filed: 11/26/23 18:06> Mode of arrival: ambulatory <DARNELL Dallas Last Filed: 11/26/23 18:06> Limitations: no limitations <DARNELL Dallas Last Filed: 11/26/23 18:06> History of Present Illness HPI Narrative: This is a 88 year old female that presents to the ER for GI bleed. Reports since this morning she has had bright red blood per rectum. Reports some bloody diarrhea. Reports history of previous GI bleeds and diverticulitis. Denies fever or vomiting. <DARNELL Dallas Last Filed: 11/26/23 18:06> Related Data Home medications: Home Medications Medication Instructions Recorded Confirmed aspirin 81 mg tablet,delayed 81 mg PO DAILY 04/22/22 11/26/23 release (Adult Low Dose Aspirin) coenzyme [id number] E 100 mg-100 1 cap PO DAILY 11/26/23 11/26/23 unit capsule <DARNELL Dallas Last Filed: 11/26/23 18:06> Allergies/Adverse reactions: Allergies Allergy/AdvReac Type Severity Reaction Status Date / Time cat dander Allergy Unknown Sneezing Verified 08/15/23 11:55 Sulfa (Sulfonamide Allergy Unknown Swelling Verified 08/15/23 11:55 Antibiotics) <DARNELL Dallas Last Filed: 11/26/23 18:06> Review of Systems Review of Systems: CONSTITUTIONAL: Denies fever GASTROINTESTINAL: Reports abdominal pain, and diarrhea. Denies nausea or vomiting <DARNELL Dallas Last Filed: 11/26/23 18:06> All systems reviewed & are unremarkable except as noted in HPI and below <Saira Hernández PA-C - Last Filed: 11/26/23 18:06> [facility] Past Medical History Medical History: Medical History Acute blood loss anemia Fistula Kidney stones Optional surgery tumor removed lower back(HIP) <Saira Hernández PA-C - Last Filed: 11/26/23 18:06> Surgical History Surgical History: Surgical History H/O lumpectomy x2 H/O total cystectomy H/O: hysterectomy <Saira Hernández PA-C - Last Filed: 11/26/23 18:06> Family History Family History: Family History Mother Family history of cardiovascular disease Acute myocardial infarction Hypertension Family history of elevated blood lipids Sibling Hypertension <Saira Hernández PA-C - Last Filed: 11/26/23 18:06> Social History Social History: Social History Smoking status: Former smoker Tobacco type: cigarettes Alcohol intake: never Substance use: never Do You Feel Safe in your Home?: Yes Lack of Transportation: No Lack of Food: Never True Current Housing: I Have Housing Concerned About Future Housing: No Difficulty Paying Gas/Electric Bills: No Difficulty Paying for Meds: No Currently Unemployed: No Education: Grade School Difficulty w/ Childcare or Family Care: No Spiritual care concerns: No <Saira Hernández PA-C - Last Filed: 11/26/23 18:06> Exam Narrative: GENERAL: Well-appearing, well-nourished, and in no acute distress. HEAD: Normocephalic, atraumatic. EYES: EOMI. CHEST: Clear to auscultation. No respiratory distress. No wheezes rales or rhonchi HEART: Regular rate and rhythm. No murmur heard. Normal peripheral pulses. ABDOMEN: Soft, nontender, nondistended, normal active bowel sounds. EXTREMITIES: Normal range of motion. No edema. SKIN: Warm, dry, no rash. NEURO: No focal deficits. Alert and oriented x3. PSYCH: Normal mood and affect RECTAL: Bright red blood in the rectum, no infl
[2023-11-26 16:28] LABS: Hematocrit 38.2 % (37.0-47.0); Hemoglobin 12.9 g/dL (12.0-15.0)
--- NOTE | 2023-11-26 17:35 | ADMGEN ---
This patient, Shellie Lund, was admitted to [facility] Surg Room 315-01. Patient/family oriented to hospital policies and general routines including ID bracelet, bed and alarms, visiting hours, pain management, procedures, bathroom and other care routines, personal items, smoking policy, room service/diet, and visiting hours. Information on how to activate the Rapid Response Team has been discussed. Patient/Family are encouraged to report perceived risks to care and to ask questions if they do not understand what they are told or what they should do.
--- NOTE | 2023-11-26 20:50 | PM.IMHP ---
H&P: HPI History of Present Illness Date/Time: 11/26/23 20:50 Chief Complaint: Bleeding from the rectum Narrative: 88-year-old female with a past medical history of essential hypertension, gout, GERD, hypothyroidism and kidney stones who presented to the ER with rectal bleeding. The patient reports that her symptoms started similar to her prior episodes of lower GI bleeding. 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 She reported that the blood was red to maroon in color. She denies any blood clots. But is not having any associated abdominal pain. She does have intermittent chills ever since she made a trip a month or so ago and reports that she got extremely cold on the trip but denies any measured fevers. She was afebrile on presentation to the ER. She denies any recent antibiotic exposure. She denies any associated diarrhea. She reports that on prior episodes of GI bleeding they thought it was diverticular bleed. The last time was in September of 2022 at which time both she and the salesperson parts agreed to defer any invasive studies due to her age. The patient's hemoglobin during her last hospitalization remained stable. She has had 1 bloody stools since presentation to the ER and in the ER distal digital rectal exam demonstrated obvious blood. She denies having any lightheadedness or near syncopal episodes. She has not had any palpitations or tachycardia. She denies any associated nausea or vomiting or hematochezia. Labs demonstrated a stable hemoglobin. Her BUN was modestly increased from her baseline her creatinine remained normal at 0.8. She had a CT of the abdomen and pelvis in the ER that demonstrated no known reason for the patient's rectal bleeding but did demonstrate 2.3 cm nodule in the right lower lung consistent with primary bronchogenic carcinoma at which time a CT of the chest was performed. CT also demonstrated 15 mm right kidney mass consistent with hemorrhagic cyst or less likely renal cell carcinoma. Review of Systems Review of Systems: 12 systems were reviewed with pertinent positives and negatives per HPI. Except as documented in the HPI, all other systems were reviewed and are negative. [facility] Past Medical History Medical History (Updated 11/26/23 @ 21:02 by Jillian Anrdea DO) Actinic keratosis Benign hypertension Bilateral carotid bruits Chronic kidney disease COPD (chronic obstructive pulmonary disease) Essential (primary) hypertension Fistula Gastro-esophageal reflux disease without esophagitis Gout Hyperlipidemia Hypothyroidism Kidney stones Type 2 diabetes mellitus Surgical History Surgical History (Updated 11/27/23 @ 04:47 by Jillian Andrea DO) H/O lumpectomy x2 History of bladder suspension procedure (~2002) History of tonsillectomy and adenoidectomy History of total hysterectomy with bilateral salpingo-oophorectomy (BSO) (~1978) Laryngeal cyst Status post cystectomy Family History Family History Mother Family history of cardiovascular disease Acute myocardial infarction Hypertension Family history of elevated blood lipids Sibling Hypertension Social History Social History (Updated 11/27/23 @ 04:49 by Jillian Andrea DO) Social History: The patient lives in [place] with her . She was from her 1st and 2008. She met her current 6 years ago and a got last year. Code status: DNR/DNI (per patient request) Healthcare power of commercial attorney: Rafael ( ) Smoking packs per day: 1.5 Smoking cigarettes per day: 30.0 Years smoked: 30 Smoking pack-years: 45.00 Smoking status: Former smoker Tobacco type: cigarettes Alcohol intake: never Substance use: never Do You Feel Safe in your Home?: Yes Lack of Transportation: No Lack of Food: Never True Current Housing: I Have Housing C
[2023-11-26] MEDS: METOPROLOL SUCCINATE EXT REL 50 MG TABCR PO (21:08)
[2023-11-26] MEDS: GABAPENTIN 100 MG CAPSULE PO (21:08)
[2023-11-26 21:27] LABS: Hematocrit 39.1 % (37.0-47.0); Hemoglobin 12.9 g/dL (12.0-15.0)
[2023-11-26] MEDS: amLODIPine BESYLATE 5 MG TABLET PO (21:45)
[2023-11-27] VITALS (10 sets, daily range): BP systolic 107–156; BP diastolic 50–90; PULSE 60–83; RESP 18–20; TEMP 36.3–36.8; O2SAT 94–96
[2023-11-27] MEDS: LEVOTHYROXINE SODIUM 50 MCG TABLET BY MOUTH (06:39)
[2023-11-27 07:18] LABS: Hematocrit 38.1 % (37.0-47.0); Hemoglobin 12.3 g/dL (12.0-15.0); Mean Corpuscular HGB Conc 32.3 g/dl (32-36); Mean Corpuscular Hemoglobin 28.3 pg (26-34); Mean Corpuscular Volume 87.8 fl (80-100); Mean Platelet Volume 11.8 fl (7.4-10.4); Platelet Count Result 206 k/mm3 (150-375); Red Blood Count 4.34 M/mm3 (4.2-5.4); Red Cell Distribution Width 14.2 % (11.5-14.5); White Blood Count 8.7 K/mm3 (4.5-10.0)
[2023-11-27 07:30] LABS: Anion Gap 7 mmol/L (4-12); Blood Urea Nitrogen 30 mg/dL (7-17); Calcium 9.6 mg/dL (8.4-10.2); Carbon Dioxide 27 mmol/L (22-30); Chloride 104 mmol/L (98-107); Estimated CRCL calculation 28 ml/min; Estimated Glomerular Filt Rate 59; Glucose 135 mg/dL (65-110); Potassium 3.3 mmol/L (3.4-5.0); Sodium 138 mmol/L (137-145)
[2023-11-27] MEDS: METOPROLOL SUCCINATE EXT REL 50 MG TABCR PO ×2 (09:06→20:24)
[2023-11-27] MEDS: PANTOPRAZOLE 40 MG TABLET PO (09:06)
[2023-11-27] MEDS: GABAPENTIN 100 MG CAPSULE PO ×3 (09:06→17:23)
[2023-11-27] MEDS: POTASSIUM CHLORIDE 20 MEQ PACKET (FOR LIQUID) 40 MEQ PO (09:06)
[2023-11-27 09:11] LABS: Iron 71 ug/dL (37-170)
[2023-11-27 09:21] LABS: Percent Iron Saturation 23 % (20-50)
--- NOTE | 2023-11-27 10:06 | PDONCCN ---
HPI - Date of Consult Date/Time: 11/27/23 12:54 <Alphonso Barrientos - 11/27/23 12:56> 11/27/23 10:06 <Shereen Jauregui - 11/27/23 10:15> Requesting Physician: Gnozález Cruz MD <Alphonso Barrientos - 11/27/23 12:56> González Cruz MD <Shereen Jauregui - 11/27/23 10:15> Primary Care Provider: Maycol Khan DO <Alphonso Barrientos - 11/27/23 12:56> Maycol Khan DO <Shereen Jauregui - 11/27/23 10:15> - Consult Narrative Reason for consult: Anemia and Lung mass <ShaniaShereen - 11/27/23 10:15> Narrative: Shellie Lund is a 88 year old female <Alphonso Barrientos - 11/27/23 12:56> Shellie Lund is a 88 year old female with a past medical history of HTN, gout, GERD, hypothyroidism who was admitted for rectal bleeding. 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 This has happened before and evaluation showed it was due to her diverticulitis. Her bloody bowel movements have started to slow down and is wondering if she will need another colonoscopy. She has had blood transfusions in the past but nothing recent. She is has never taken iron supplements either. Ct abd/pelvis showed 2.3cm nodule in R lower lung consistent with bronchogenic carcinoma and no evidence of bleeding source. There was also 15 mm right kidney mass consistent with hemorrhagic cyst or less likely renal cell carcinoma. She has had many scares with cancer int he past including lumpectomy, fatty tumor on her back, and hysterectomy for cysts but never has had a personal hisotry of malignancy. Her mother had colon cancer. She does report a smoking history and quit 30 years ago. Denies alcohol use. Denies any fatigue, SOB, cough, dizziness, chest pain, or lightheadedness. <Shereen Jauregui - 11/27/23 10:15> Review of Systems - Review of Systems All systems reviewed & are unremarkable except as noted in HPI and bel <Shereen Jauregui - 11/27/23 10:15> [facility] Medical History: Medical History (Last Updated 11/26/23 @ 21:02 by Jillian Andrea DO) Actinic keratosis Benign hypertension Bilateral carotid bruits Chronic kidney disease COPD (chronic obstructive pulmonary disease) Essential (primary) hypertension Fistula Gastro-esophageal reflux disease without esophagitis Gout Hyperlipidemia Hypothyroidism Kidney stones Type 2 diabetes mellitus <Alphonso Barrientos - 11/27/23 12:56> Medical History (Last Updated 11/26/23 @ 21:02 by Jillian Andrea DO) Actinic keratosis Benign hypertension Bilateral carotid bruits Chronic kidney disease COPD (chronic obstructive pulmonary disease) Essential (primary) hypertension Fistula Gastro-esophageal reflux disease without esophagitis Gout Hyperlipidemia Hypothyroidism Kidney stones Type 2 diabetes mellitus <Shereen Jauregui - 11/27/23 10:15> Surgical History: Surgical History (Last Updated 11/27/23 @ 04:47 by Jillian Andrea DO) H/O lumpectomy x2 History of bladder suspension procedure Onset Date: ~2002 History of tonsillectomy and adenoidectomy History of total hysterectomy with bilateral salpingo-oophorectomy (BSO) Onset Date: ~1978 Laryngeal cyst Status post cystectomy <Alphonso Barrientos - 11/27/23 12:56> Surgical History (Last Updated 11/27/23 @ 04:47 by Jillian Andrea DO) H/O lumpectomy x2 History of bladder suspension procedure Onset Date: ~2002 History of tonsillectomy and adenoidectomy History of total hysterectomy with bilateral salpingo-oophorectomy (BSO) Onset Date: ~1978 Laryngeal cyst Status post cystectomy <Shereen Jauregui - 11/27/23 10:15> Family History: Family History (Last Reviewed 11/26/23 @ 21:02 by Jillian Andrea DO) Mother Family history of cardiovascular disease Acute myocardial infarction Hypertension Family history of elevated blood lipids Sibling Hypertension <Alphonso Barrientos - 11/27/23 12:56>
[2023-11-27 10:19] LABS: Folic Acid 11.1 ng/mL (2.76->20)
[2023-11-27 11:56] LABS: Hematocrit 40.8 % (37.0-47.0); Hemoglobin 13.2 g/dL (12.0-15.0)
[2023-11-27] MEDS: CYANOCOBALAMIN INJ 1,000 MCG/ML VIAL 1000 MCG IM (14:34)
--- NOTE | 2023-11-27 15:45 | PM.IMPN ---
Progress Note: A&P Assessment and Plan (1) Acute GI bleeding: Code(s): K92.2 - Gastrointestinal hemorrhage, unspecified Status: Acute Assessment and Plan: Patient has a lower GI bleeding given report of symptoms likely diverticular in origin. Gastroenterology has been consulted. Serial H&Hs have been ordered and have remained stable. Pt not decided on colonoscopy or not. Will hold the patient's baby aspirin. (2) Pulmonary nodule: Code(s): R91.1 - Solitary pulmonary nodule Status: Acute Assessment and Plan: Patient does have a small pulmonary nodule. Oncology was consulted from the ER. Oncology recommending CT-guided biopsy as an outpatient. (3) Essential (primary) hypertension: Code(s): I10 - Essential (primary) hypertension Status: Acute Assessment and Plan: Will resume patient's home antihypertensives. Subjective Date/time seen: 11/27/23 15:45 Interval history: Patient feeling good today. She has not had no further bowel movement so has not noticed any more bright red blood. States this is a very similar episode is when she had a bleeding diverticula in the past. According to the patient GI believes that this is another bleeding diverticula although they are leaving it up to the patient whether she ad coonosopy or not. Oncology has been consulted and they are recommending outpatient CT-guided biopsy. Patient's H&H has remained stable. She denies chest pain, shortness a breath, lightheadedness, dizziness, nausea and vomiting. Exam Narrative: GENERAL: Comfortable, no acute distress HENMT: moist mucous membranes, poor Dentition EYES: EOM intact b/l NECK: no lymphadenopathy RESPIRATORY: clear to auscultation, no increased respiratory effort CARDIO: Regular rate and rhythm GI: soft, nontender, bowel sounds present SKIN/EXTREMITIES: no rashes, no edema, no redness or tenderness NEURO: PROM intact, answers questions appropriately, A&O x4 Objective Data Vital Signs Vital Signs: Vital Signs - 24 hr 11/26/23 16:01 11/26/23 17:51 11/26/23 18:00 Temperature 96.6 F L Pulse Rate 68 80 Respiratory Rate 18 18 Blood Pressure 176/83 H 124/85 Pulse Oximetry 97 98 Oxygen Delivery Room Air 11/26/23 18:00 11/26/23 21:08 11/26/23 21:49 Temperature Pulse Rate 78 78 86 Respiratory Rate Blood Pressure 139/63 Pulse Oximetry 97 Oxygen Delivery 11/26/23 20:15 11/26/23 20:00 11/26/23 20:00 Temperature 97 F L Pulse Rate 86 86 80 Respiratory Rate 16 16 Blood Pressure 174/77 H Pulse Oximetry 97 97 Oxygen Delivery Room Air 11/27/23 00:05 11/27/23 00:00 11/27/23 04:00 Temperature 97.5 F L Pulse Rate 71 68 67 Respiratory Rate 20 Blood Pressure 146/79 H Pulse Oximetry 94 Oxygen Delivery 11/27/23 04:45 11/27/23 08:00 11/27/23 08:00 Temperature 97.3 F L 98.2 F Pulse Rate 78 63 63 Respiratory Rate 20 18 Blood Pressure 156/56 H 107/53 L Pulse Oximetry 96 95 Oxygen Delivery 11/27/23 08:00 11/27/23 12:00 Temperature 98.1 F Pulse Rate 60 Respiratory Rate 20 Blood Pressure 110/50 L Pulse Oximetry 95 Oxygen Delivery Room Air Intake/Output Intake/Output: Intake & Output 11/24/23 11/25/23 11/26/23 11/27/23 23:59 23:59 23:59 23:59 Intake Total 90 850 Balance 90 850 Meds/Results Medications: Active Medications Generic Name Dose Route Start Last Admin Trade Name Arelis PRN Reason Stop Dose Admin Amlodipine Besylate 5 mg 11/26/23 21:15 11/26/23 21:45 Amlodipine Besylate 5 Mg Tablet PO 5 mg HS VIKAS Administration Cyanocobalamin 2,000 mcg/ 2,500 mcg 11/28/23 09:00 Cyanocobalamin 500 mcg PO QAM VIKAS Gabapentin 100 mg 11/26/23 20:50 11/27/23 14:34 Gabapentin 100 Mg Capsule PO 100 mg TID VIKAS Administration Levothyroxine Sodium 50 mcg 11/27/23 06:30 11/27/23 06:39 Levothyroxine Sodium 50 Mcg Table
--- NOTE | 2023-11-27 17:43 | WPDGICN ---
Assessment and Plan Assessment and plan (1) RB (rectal bleeding): Code(s): K62.5 - Hemorrhage of anus and rectum Status: Acute Assessment and Plan: already almost resolved when checked her last BM similar episode in the past she prefers for now conservative approach specially since her h/h is normal, she says if bleeding again then will ok for colonoscopy most likely diverticula related (2) Diverticular hemorrhage: Code(s): K57.31 - Diverticulosis of large intestine without perforation or abscess with bleeding Status: Acute (3) Acute GI bleeding: Code(s): K92.2 - Gastrointestinal hemorrhage, unspecified Status: Acute Assessment and Plan: normal h/h (4) Lung mass: Code(s): R91.8 - Other nonspecific abnormal finding of lung field Status: Acute Assessment and Plan: incidental finding, primary asked oncology to see (5) Type 2 diabetes mellitus without complications: Code(s): E11.9 - Type 2 diabetes mellitus without complications Status: Acute GI Consult Note Consult date/time: 11/27/23 17:43 Reason for consult: rectal bleeding HPI: Shellie Lund is a 88 year old female with history of hypertension, gout, GERD, and kidney stones who presented to the ER with rectal bleeding.?Patient reports she did have previous bleeding that resolved spontaneously 2016 and had colonoscopy- was told that related to diverticula, then admitted 1 year ago but did not require colonoscopy. 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 She reported that the blood was red to maroon in color, denies abdominal pain. Blood work hgb stable 12-13 and last BM with almost no blood.?CT of the abdomen and pelvis reviewed, There is an anastomosis in the rectosigmoid. There is diverticulosis of the colon without evidence of diverticulitis. Also 2.3 cm nodule in the right lower lung consistent with primary bronchogenic carcinoma Review of Systems Constitutional: Constitutional: Denies body ache(s) Eyes: Eyes: Denies blurry vision ENT: Reports Normal hearing present Cardiovascular: Cardiovascular: Denies chest pain Respiratory: Respiratory: Denies chest congestion Gastrointestinal: Gastrointestinal: Reports hematochezia Musculoskeletal: Musculoskeletal: Denies neck pain Integumentary/Breasts: Skin/Breast: Denies rash Neurologic: Denies Abnormal speech present Psychiatric: Psychiatric: Denies behavioral changes [facility] Past Medical History Medical History (Updated 11/27/23 @ 10:15 by Shereen Jauregui APRN) Actinic keratosis Benign hypertension Bilateral carotid bruits Chronic kidney disease COPD (chronic obstructive pulmonary disease) Essential (primary) hypertension Fistula Gastro-esophageal reflux disease without esophagitis Gout Hyperlipidemia Hypothyroidism Kidney stones Type 2 diabetes mellitus Surgical History Surgical History (Updated 11/27/23 @ 10:15 by Shereen Jauregui APRN) H/O lumpectomy x2 History of bladder suspension procedure (~2002) History of tonsillectomy and adenoidectomy History of total hysterectomy with bilateral salpingo-oophorectomy (BSO) (~1978) Laryngeal cyst Status post cystectomy Family History Family History Mother Family history of cardiovascular disease Acute myocardial infarction Hypertension Family history of elevated blood lipids Sibling Hypertension Social History Social History (Updated 11/27/23 @ 04:49 by Jillian Andrea DO) Social History: The patient lives in [place] with her . She was from her 1st and 2008. She met her current 6 years ago and a got last year. Code status: DNR/DNI (per patient request) Healthcare power of collections attorney: Rafael ( ) Smoking packs per day: 1.5 Smoking cigarettes per day: 30.0 Years smoked: 30 Smoking
[2023-11-27] MEDS: amLODIPine BESYLATE 5 MG TABLET PO (20:25)
[2023-11-28] VITALS: BP 130/65; PULSE 59; PULSE 63; RESP 16; TEMP 36.8; O2SAT 98
[2023-11-28 04:00] VITALS: BP 120/48; PULSE 61; PULSE 63; RESP 16; TEMP 36.7; O2SAT 98
[2023-11-28] MEDS: LEVOTHYROXINE SODIUM 50 MCG TABLET BY MOUTH (05:51)
[2023-11-28 08:00] VITALS: BP 146/71; PULSE 65; RESP 18; TEMP 36.1; O2SAT 96
[2023-11-28 08:04] VITALS: PULSE 65
[2023-11-28 08:45] LABS: Hematocrit 38.8 % (37.0-47.0); Hemoglobin 12.5 g/dL (12.0-15.0); Mean Corpuscular HGB Conc 32.2 g/dl (32-36); Mean Corpuscular Hemoglobin 28.5 pg (26-34); Mean Corpuscular Volume 88.6 fl (80-100); Platelet Count Result 218 k/mm3 (150-375); Red Blood Count 4.38 M/mm3 (4.2-5.4); White Blood Count 8.1 K/mm3 (4.5-10.0)
[2023-11-28 12:00] VITALS: BP 150/83; PULSE 67; RESP 18; TEMP 36; O2SAT 97
[2023-11-28 14:00] VITALS: BP 164/65; PULSE 61; RESP 18; TEMP 35.9; O2SAT 94
--- NOTE | 2023-11-28 14:30 | PM.DS ---
DS: Admitting Diagnosis Discharge Date 11/28/23 Admitting Diagnosis bright red blood per rectum DS: Discharge Diagnosis Discharge Diagnosis (1) Acute GI bleeding: Code(s): K92.2 - Gastrointestinal hemorrhage, unspecified Status: Acute (2) Pulmonary nodule: Code(s): R91.1 - Solitary pulmonary nodule Status: Acute (3) Essential (primary) hypertension: Code(s): I10 - Essential (primary) hypertension Status: Acute DS: Summary Hospital Course Hospital Course: This is an 88-year-old female with past medical history of hypertension, hypothyroidism, GERD and gout the presented to the ED due to rectal Bleeding. Patient has history of diverticula and states this is a very similar episode is when she had a bleeding diverticula in the past.? GI was consulted. The patient's hemoglobin during her last hospitalization remained stable.? She has had 1 bloody stools since presentation to the ER and in the ER distal digital rectal exam demonstrated obvious blood.? She denies having any lightheadedness or near syncopal episodes.? She has not had any palpitations or tachycardia.? She denies any associated nausea or vomiting or hematochezia.? Labs demonstrated a stable hemoglobin.? Her BUN was modestly increased from her baseline her creatinine remained normal at 0.8.? She had a CT of the abdomen and pelvis in the ER that demonstrated no known reason for the patient's rectal bleeding but did demonstrate 2.3 cm nodule in the right lower lung consistent with primary bronchogenic carcinoma at which time a CT of the chest was performed. According to the patient GI believes that this is another bleeding diverticula although they are leaving it up to the patient whether she ad coonosopy or not.? Oncology consulted. Patient had a CT-guided biopsy done in the ED and she will follow-up with results as an outpatient. patient's rectal bleeding resolved. patient decided to go with conservative measures and not undergo colonoscopy at this time. Her labs and vital signs are stable she is medically clear for discharge at this time. Time Spent with Patient Time attestation: Total time spent providing and/or coordinating discharge services: Exam Narrative: GENERAL: Comfortable, no acute distress HENMT: moist mucous membranes, poor Dentition EYES: EOM intact b/l NECK: no lymphadenopathy RESPIRATORY: clear to auscultation, no increased respiratory effort CARDIO: Regular rate and rhythm GI: soft, nontender, bowel sounds present SKIN/EXTREMITIES: no rashes, no edema, no redness or tenderness NEURO: PROM intact, answers questions appropriately, A&O x4 DS: Data Data Completed and Pending Labs on day of discharge: Labs from last 24 hours 11/28/23 08:27 WBC 8.1 RBC 4.38 Hgb 12.5 Hct 38.8 MCV 88.6 MCH 28.5 MCHC 32.2 RDW 14.0 Plt Count 218 MPV 12.0 H Discharge Plan Discharge Attending physician on discharge: Jesus Tirado Consulting providers: Angelito Mckeon; Alphonso Barrientos; Saira Hernández Discharging Clinician: Jessica Steiner Patient Disposition: Home, Self-Care Activity: as tolerated Diet: regular Discharge Instructions: Patient was given office information to follow up with an appointment at the [facility] [address] [place] upon discharge. Please call our office number ([phone]) to make a follow up appointment regarding lung mass. Recommend b12 supplement Discharge disposition: Take medications as prescribed Monitor blood pressures Avoid social areas, you wear a mask when in social settings Encouraged to continue with yearly vaccinations Return to the emergency department if he developed sudden shortness of breath, chest pain, nausea, vomiting, upset stomach or intractable diarrhea Return to the emergency department if you develop fever greater than 100.4 Follow-up with the primary care physician within 1-2 weeks T
--- NOTE | 2023-11-28 15:22 | WPDGIPROGNO ---
Progress Note: A&P Assessment and Plan (1) RB (rectal bleeding): Code(s): K62.5 - Hemorrhage of anus and rectum Status: Acute Assessment and Plan: resolved stable h/h no need to perform colonoscopy unless bleeding again she can follow-up in office as needed (2) Diverticular hemorrhage: Code(s): K57.31 - Diverticulosis of large intestine without perforation or abscess with bleeding Status: Acute (3) Lung mass: Code(s): R91.8 - Other nonspecific abnormal finding of lung field Status: Acute Assessment and Plan: s/p biopsy will follow-up with oncology (4) Type 2 diabetes mellitus without complications: Code(s): E11.9 - Type 2 diabetes mellitus without complications Status: Acute (5) Chronic obstructive pulmonary disease, unspecified: Code(s): J44.9 - Chronic obstructive pulmonary disease, unspecified Status: Acute Subjective Date/time seen: 11/28/23 15:22 Interval history: no more rectal bleeding, she is comfortable she completed lung biopsy Review of Systems Review of Systems: All systems reviewed & are unremarkable except as noted in HPI and below Exam Const: General: comfortable and no acute distress HENMT: Face/Nose/Sinus: Normal nares present Eyes: General: appearance normal, both eyes and all related structures Neck: Neck: no JVD Resp: Auscultation: clear to auscultation bilaterally Cardio: Rate: regular rate Rhythm: regular rhythm GI: Inspection: non-distended GI Palp: Yes Soft to palpation and No Tenderness to palpation present (GI) Auscultation: normal bowel sounds Skin: General skin exam: normal color Neuro: General: gait normal Speech: normal speech Extrem: General: normal to inspection Psych: Mental Status: mental status grossly normal Objective Data Vital Signs Vital Signs: Vital Signs - 24 hr 11/27/23 16:00 11/27/23 20:24 11/27/23 20:00 Temperature 98.1 F Pulse Rate 64 83 80 Respiratory Rate 18 Blood Pressure 144/90 H Pulse Oximetry 96 Oxygen Delivery 11/27/23 20:00 11/27/23 20:00 11/28/23 00:00 Temperature 98.3 F Pulse Rate 67 63 Respiratory Rate 16 Blood Pressure 130/65 Pulse Oximetry 98 Oxygen Delivery Room Air 11/28/23 00:00 11/28/23 04:00 11/28/23 04:00 Temperature 98.0 F Pulse Rate 59 L 61 63 Respiratory Rate 16 Blood Pressure 120/48 L Pulse Oximetry 98 Oxygen Delivery 11/28/23 08:00 11/28/23 08:20 11/28/23 12:00 Temperature 97.0 F L 96.8 F L Pulse Rate 65 67 Respiratory Rate 18 18 Blood Pressure 146/71 H 150/83 H Pulse Oximetry 96 97 Oxygen Delivery Room Air 11/28/23 14:00 Temperature 96.6 F L Pulse Rate 61 Respiratory Rate 18 Blood Pressure 164/65 H Pulse Oximetry 94 Oxygen Delivery Intake/Output Intake/Output: Intake & Output 11/25/23 11/26/23 11/27/23 11/28/23 23:59 23:59 23:59 23:59 Intake Total 90 1460 150 Output Total 4 Balance 90 1456 150 Meds/Results Medications: Active Medications Generic Name Dose Route Start Last Admin Trade Name Freq PRN Reason Stop Dose Admin Amlodipine Besylate 5 mg 11/26/23 21:15 11/27/23 20:25 Amlodipine Besylate 5 Mg Tablet PO 5 mg HS VIKAS Administration Cyanocobalamin 2,000 mcg/ 2,500 mcg 11/28/23 09:00 Cyanocobalamin 500 mcg PO QAM VIKAS Gabapentin 100 mg 11/26/23 20:50 11/27/23 17:23 Gabapentin 100 Mg Capsule PO 100 mg TID VIKAS Administration Levothyroxine Sodium 50 mcg 11/27/23 06:30 11/28/23 05:51 Levothyroxine Sodium 50 Mcg Tablet BY MOUTH 50 mcg DAILY@0630 VIKAS Administration Meclizine HCl 25 mg 11/27/23 09:00 Meclizine Hcl 25 Mg Tablet PO TID PRN Dizziness Metoprolol Succinate 50 mg 11/26/23 21:00 11/27/23 20:24 Metoprolol Succinate Ext Rel 50 Mg Tabcr PO 50 mg Q12HR VIKAS Administration Pantoprazole Sodium 40 mg 11/27/23 09:00 11/27/23 09:06 Pantoprazole 40 Mg Tabl
[2023-12-01 06:34] LABS: Methylmalonic Acid 549 nmol/L (87-318)
[2023-12-04 14:16] LABS: Soluble Transferrin Receptor 1.17 mg/L (0.76-1.76)
== END 2023-11-28 16:35 | disposition home or self-care (01) | DRG 180 ==
LOC: ANHED 15:06 → ANH3MEDSUR 16:54
PROVIDERS: Internal Medicine; Internal Medicine Critical Care Medicine; Nurse Practitioner Family; Admitting Provider Internal Medicine; Emergency Provider Physician Assistant; PCP Family Medicine; Visit Provider Hospitalist
DX: C34.90 Malignant neoplasm of unspecified part of unspecified bronchus or lung (principal); K57.91 Diverticulosis of intestine, part unspecified, without perforation or abscess with bleeding; E03.9 Hypothyroidism, unspecified; E11.22 Type 2 diabetes mellitus with diabetic chronic kidney disease; E78.5 Hyperlipidemia, unspecified; I12.9 Hypertensive chronic kidney disease with stage 1 through stage 4 chronic kidney disease, or unspecified chronic kidney disease; J44.9 Chronic obstructive pulmonary disease, unspecified; K21.9 Gastro-esophageal reflux disease without esophagitis; M10.9 Gout, unspecified; N18.9 Chronic kidney disease, unspecified; N28.89 Other specified disorders of kidney and ureter; Z66 Do not resuscitate; Z90.6 Acquired absence of other parts of urinary tract; Z90.710 Acquired absence of both cervix and uterus; Z87.891 Personal history of nicotine dependence; Z87.442 Personal history of urinary calculi; Z79.82 Long term (current) use of aspirin
CPT/HCPCS: 32408; 36415; 71045; 71250; 74177; 80048; 80053; 82607; 82728; 82746; 83540; 83550; 83921; 84238; 85014; 85018; 85025; 85027; 85610; 85730; 86850; 86900; 86901; 88305; 88342; 99285; A9270; G0378; J3420; Q9967

== ENCOUNTER 2023-12-08 03:53 | Inpatient (IN) | payer MEDICARE, BC, SELFPAY ==
[2023-12-08] VITALS (16 sets, daily range): BP systolic 148–176; BP diastolic 58–96; PULSE 61–78; RESP 13–24; TEMP 36.2–37.1; O2SAT 95–100; BMI 25.1
--- NOTE | ~2023-12-08 | XR_ITS ---
Portable chest x-ray Comparison: 12/08/2023 Clinical History: Postbiopsy Findings: Stable 2.3 cm right lung nodule. No pneumothorax seen. Left lung clear. Cardiomediastinal silhouette is stable. Bones and soft tissues are unremarkable. Impression: No pneumothorax. Stable 2.3 cm right lung nodule. Follow up with biopsy results. Reviewed, dictated and finalized at [facility]. Impression: No pneumothorax. Stable 2.3 cm right lung nodule. Follow up with biopsy results.
--- NOTE | ~2023-12-08 | CT_ITS ---
CT ANGIOGRAM NECK AND HEAD History: CVA. Technique: Axial noncontrast imaging of the brain was performed. Serial spiral axial images through t he head and neck were then obtained during arterial phase IV injection of 100 cc of Omnipaque 350. 3- D postprocessing and MIP images were then reconstructed on the remote workstation. Dose reduction ross hnique was used on this scan by utilizing automated exposure control and iterative reconstruction ross hnique. The dose-length product (DLP) was 1676.55 mGy-cm. COMPARISON: 08/18/2022 CTA neck findings: Bilateral vertebral arteries are patent. Bilateral common carotid, internal carot id, and external carotid arteries are patent. There are small calcified plaques at the common carotid arteries and proximal internal carotid arteries, without stenosis. No aneurysm. No large vessel occl usion. The proximal right internal carotid artery demonstrates 0% stenosis relative to the normal dis trae artery lumen diameter. The proximal left internal carotid artery demonstrates 0% stenosis relativ e to the normal distal artery lumen diameter. There is mild to moderate emphysema in the lung apices/upper lobes. Several subcentimeter pulmonary n odules are present across, largest in the right upper lobe measuring 8 mm (series 8 image 30). CTA head findings: Distal vertebral arteries, basilar artery, and posterior cerebral arteries are pat ent. Distal internal carotid arteries, middle cerebral arteries, and anterior cerebral arteries are p atent. There is a mild to moderate stenosis of the cavernous portions of the distal internal carotid arteries bilaterally related to atherosclerotic calcifications. No large vessel occlusion. No aneurys m. No other stenosis. Axial noncontrast imaging of the brain is unremarkable. No acute infarct, intracranial hemorrhage or mass lesion identified. Abernathy-white differential preserved. No mass effect or midline shift. Ventricle s and subarachnoid spaces are unremarkable. Paranasal sinuses and mastoid air cells are clear. Impression: Mild to moderate stenoses in the cavernous portions of the distal internal carotid arteries related t o atherosclerotic calcifications. No other stenosis or aneurysm. No large vessel occlusion. Subcentimeter pulmonary nodules in the upper lobes, largest measuring 8 mm, indeterminate. Consider d edicated chest CT to further evaluate. [id number] upper lobe emphysema. Reviewed, dictated and finalized at location . Impression: Mild to moderate stenoses in the cavernous portions of the distal internal vieira tid arteries related to atherosclerotic calcifications. No other stenosis or aneurysm. No large vessel occlusion. Subcentimeter pulmonary nodules in the upper lobes, largest measuring 8 mm, ind eterminate. Consider dedicated chest CT to further evaluate. [id number] upper lobe emphysema.
--- NOTE | ~2023-12-08 | US_ITS ---
EXAMINATION: US carotid duplex BI DATE: 12/08/2023 11:37 INDICATION: Acute infarct in right frontal lobe. Cerebrovascular accident. TECHNIQUE: Grayscale, color Doppler, and pulsed Doppler images of the cervical carotid arteries were obtained. The degree of vessel stenosis is placed in one of the following categories: normal, <50%, 5 0-69%, >=70% but less than near-occlusion, near-occlusion, or total occlusion. Note that percent sten osis relative to normal distal artery lumen diameter is indirectly measured from velocity measurement s as described by Cuong, et al. Radiology 2003; 229:340-346. COMPARISON: None. FINDINGS: RIGHT: The right common carotid artery (CCA) peak systolic velocity (PSV) is 82 cm/s. The right internal car otid artery (ICA) PSV is 97 cm/s. The right ICA end-diastolic velocity (EDV) is 18 cm/s. The right IC A/CCA PSV ratio is 1.2. Grayscale and color Doppler images yield an estimate of <50% diameter reducti on from plaque in the ICA. There is antegrade flow in the right vertebral artery. LEFT: The left CCA PSV is 76 cm/s. The left ICA PSV is 81 cm/s. The left ICA EDV is 25 cm/s. The left ICA/C CA PSV ratio is 1.1. Grayscale and color Doppler images yield an estimate of <50% diameter reduction from plaque in the ICA. There is antegrade flow in the left vertebral artery. IMPRESSION: 1. <50% stenosis in the right internal carotid artery. 2. <50% stenosis in the left internal carotid artery. Reviewed, dictated and finalized at location A.
--- NOTE | ~2023-12-08 | MR_ITS ---
EXAMINATION: MR brain/brain stem wo/w con DATE: 12/08/2023 10:42 INDICATION: Slurred speech. TECHNIQUE: Magnetic resonance imaging (MRI) of the brain and brainstem was performed without and with 11 mL MultiHance intravenous contrast. COMPARISON: Head CT 12/08/2023 FINDINGS: There is an acute infarct in posterior right frontal lobe. There are scattered areas of non specific increased T2-weighted signal intensity in the cerebral white matter, which is within normal limits for the patient's age. There is no intracranial hemorrhage or abnormal mass lesion. There is m ild mucosal thickening in the paranasal sinuses. The orbits are normal. The mastoid air cells are nor mal. IMPRESSION: 1. Acute infarct in posterior right frontal lobe. Reviewed, dictated and finalized at location A.
--- NOTE | ~2023-12-08 | XR_ITS ---
Portable chest x-ray Comparison: 11/28/2023 Clinical History: CVA Findings: Stable 2.5 cm pulmonary nodule at the right midlung the right lung base. Left lung clear. Cardiomediastinal silhouette is stable. Bones and soft tissues are unremarkable. Impression: Stable 2.5 cm pulmonary nodule in the right lung. This is been recently biopsied on 11/28/2023. Correl ate with prior biopsy results. Reviewed, dictated and finalized at location . Impression: Stable 2.5 cm pulmonary nodule in the right lung. This is been recently biopsie d on 11/28/2023. Correlate with prior biopsy results.
--- NOTE | ~2023-12-08 | CT_ITS ---
EXAMINATION:CT diagnostic chest wo con DATE: 12/08/2023 10:07 INDICATION: Pulmonary nodules. TECHNIQUE: Computed tomography (CT) of the chest was performed without intravenous contrast. Automate d exposure control and iterative reconstruction technique were employed. The dose-length product (DLP ) was 154.29 mGy-cm. COMPARISON: Chest CT 11/26/2023 FINDINGS: There is moderate emphysema. There is a cluster of nodules measuring up to 6 mm in right up per lobe. There is a cluster of nodules in right middle lobe. The largest nodule demonstrates central calcification, consistent with old granulomatous disease. There is a 2.2 cm nodule in right lower lo be. There is mild atelectasis in the lungs. No pleural effusion. The heart size is normal. There are coronary artery calcifications. The central pulmonary arteries are enlarged, consistent with pulmonar y arterial hypertension. Aortic atherosclerosis is noted. There are no pathologically enlarged lymph nodes. There is a small sliding hiatal hernia. There is a 10.7 cm cyst in left kidney. There is mild thoracic spondylosis. IMPRESSION: 1. 2.2 cm right lower lobe pulmonary nodule. CT-guided biopsy on 11/28/23 demonstrated minute fragment s of peribronchial lung tissues showing moderate chronic inflammation. Consider PET/CT or repeat CT-g uided biopsy. 2. Clustered nodules in right upper lobe and right middle lobe, probably granulomatous disease. 3. Moderate emphysema. Reviewed, dictated and finalized at location A. IMPRESSION: 1. 2.2 cm right lower lobe pulmonary nodule. CT-guided biopsy on 11/28/23 demons trated minute fragments of peribronchial lung tissues showing moderate chronic inflammation. Consider PET/CT or repeat CT-guided biopsy. 2. Clustered nodules in right upper lobe and right middle lobe, probably granul omatous disease. 3. Moderate emphysema.
--- NOTE | ~2023-12-08 | MR_ITS ---
EXAMINATION: MR brain/brain stem wo/w con DATE: 12/11/2023 15:23 INDICATION: Cerebral vascular accident. TECHNIQUE: Magnetic resonance imaging (MRI) of the brain and brainstem was performed without and with 11 mL MultiHance intravenous contrast. COMPARISON: Brain MRI 12/08/2023, head CT 12/10/2023 FINDINGS: There is an acute infarct in right frontoparietal region. There is no intracranial hemorrha ge or abnormal mass lesion. The ventricles are normal in size. There is mucosal thickening in the par anasal sinuses. The orbits are normal. The mastoid air cells are normal. IMPRESSION: 1. Stable acute infarct in right frontoparietal region. Reviewed, dictated and finalized at location A.
--- NOTE | ~2023-12-08 | XR_ITS ---
EXAMINATION: XR chest 1V portable DATE: 12/09/2023 15:32 INDICATION: Right lung nodule status post percutaneous biopsy. TECHNIQUE: A single frontal view of the chest was obtained. COMPARISON: Chest single view at 1:36 PM FINDINGS: There is a nodule in right lung lower lobe. No pleural effusion or pneumothorax. The heart size is normal. IMPRESSION: 1. Nodule in right lung lower lobe, which may be malignancy or infection/inflammation. Reviewed, dictated and finalized at location A. IMPRESSION: 1. Nodule in right lung lower lobe, which may be malignancy or infection/inflam mation.
--- NOTE | ~2023-12-08 | CT_ITS ---
EXAMINATION: CT biopsy lung w/imaging DATE: 12/09/2023 12:27 INDICATION: Right lung lower lobe nodule. TECHNIQUE: The procedure including the risks, benefits, and alternatives and possibility of chest tub e placement were discussed with the patient. Risks discussed included infection, hemorrhage, pneumoth orax, and rarely . The patient understood the risks and agreed to proceed. The patient was place d prone. The skin overlying the right lung was prepped and draped in sterile fashion. Anesthetic wa s administered with 1% lidocaine subcutaneously. A 19 gauge outer needle was advanced under CT billy nce to the lesion of interest. A 20 gauge core biopsy needle was then used to obtain 3 core biopsy sp ecimens. The needle was removed and the entry site was cleaned and dressed. The mA was adjusted accor ding to patient size. Iterative reconstruction technique was employed. The dose-length product was 11 8.38 mGy-cm. There were no immediate complications. FINDINGS: CT images demonstrate the outer needle tip adjacent to a 2.3 cm nodule in right lung lower lobe. IMPRESSION: 1. CT-guided core needle biopsy of a right lung lower lobe nodule. Reviewed, dictated and finalized at location A.
--- NOTE | ~2023-12-08 | CT_ITS ---
Non-contrast Head CT History: CVA COMPARISON: 424 Technique: Axial non-contrast imaging of the brain was performed. Dose reduction technique was used on this scan by utilizing automated exposure control and iterative reconstruction technique. The dose -length product (DLP) was 605.33 mGy-cm. Findings: There is a new wedge-shaped hypodense area in the right frontal lobe, compatible with evolv ing acute infarct, which correlates with findings on MR dated 12/08/2023. No intracranial hemorrhage.. The ventricles and subarachnoid spaces are normal in size. The calvarium appears normal. The visua lized paranasal sinuses and mastoid air cells are clear. Impression: Acute wedge-shaped infarct in the right frontal lobe, which correlates with findings on MR from 024. No intracranial hemorrhage. Reviewed, dictated and finalized at [facility]. Impression: Acute wedge-shaped infarct in the right frontal lobe, which correlates with fin dings on MR from 12/08/2023. No intracranial hemorrhage.
--- NOTE | ~2023-12-08 | CT_ITS ---
CT ANGIOGRAM NECK AND HEAD History: CVA. Technique: Serial spiral axial images through the head and neck were obtained during arterial phase I V injection of 100 cc of Omnipaque 350. 3-D postprocessing and MIP images were then reconstructed on the remote workstation. Dose reduction technique was used on this scan by utilizing automated exposur e control and iterative reconstruction technique. The dose-length product (DLP) was 860.59 mGy-cm. COMPARISON: 12/08/2023 CTA neck findings: Bilateral vertebral arteries are patent. Bilateral common carotid, internal carot id, and external carotid arteries are patent. No large vessel occlusion. No stenosis or aneurysm. The proximal right internal carotid artery demonstrates 0% stenosis relative to the normal distal artery lumen diameter. The proximal left internal carotid artery demonstrates 0% stenosis relative to the n ormal distal artery lumen diameter. Mild to moderate emphysema of the upper lobes noted. Stable subcentimeter nodules in the right upper lobe noted. CTA head findings: Distal vertebral arteries, basilar artery, and posterior cerebral arteries are pat ent. Distal internal carotid arteries, middle cerebral arteries, and anterior cerebral arteries are p atent. No large vessel occlusion. There are areas of moderate stenosis in the cavernous portions of t he distal internal carotid arteries bilaterally related to atherosclerotic calcifications. No other s tenoses identified. No aneurysm. Impression: No significant change from recent prior exam. No large vessel occlusion. Stable moderate stenoses in the cavernous portions of the distal internal carotid arteries related to atherosclerotic calcificati ons. Stable subcentimeter right upper lobe pulmonary nodules, likely infectious/inflammatory in nature. Stable emphysema. Reviewed, dictated and finalized at location . Impression: No significant change from recent prior exam. No large vessel occlusion. Stable moderate stenoses in the cavernous portions of the distal internal carotid art eries related to atherosclerotic calcifications. Stable subcentimeter right upper lobe pulmonary nodules, likely infectious/infl ammatory in nature. Stable emphysema.
--- NOTE | ~2023-12-08 | XR_ITS ---
EXAMINATION: XR chest 1V portable DATE: 12/09/2023 13:42 INDICATION: Right lung nodule status post percutaneous biopsy. TECHNIQUE: A single frontal view of the chest was obtained. COMPARISON: Chest single view at 12:27 PM FINDINGS: There is a nodule in right lung lower lobe. No pleural effusion or pneumothorax. The heart size is normal. IMPRESSION: 1. Nodule in right lung lower lobe, which may be malignancy or infection/inflammation. Reviewed, dictated and finalized at location A. IMPRESSION: 1. Nodule in right lung lower lobe, which may be malignancy or infection/inflam mation.
--- NOTE | 2023-12-08 04:02 | ECG_ITS ---
Measurements Intervals Alexander Rate: 73 P: 112 NE: 145 QRS: -28 QRSD: 147 T: 9 QT: 403 AVG RR: 821 QTc: 428 QTCB: 444 QTCF: 430 Interpretive Statements SINUS RHYTHM BORDERLINE LEFT AXIS DEVIATION [QRS AXIX < -20] RIGHT BUNDLE BRANCH BLOCK [120+ ms QRS DURATION, UPRIGHT V1, 40+ ms S IN I/aVL/V4/V5/V6] ABNORMAL ECG SEE SCANNED COPY FOR SIGNATURE MTDD
--- NOTE | 2023-12-08 04:04 | ED.NEUROSD ---
HPI - Neuro Symptoms/Deficit General Chief Complaint: Suspected CVA Stated Complaint: slurred speech Time Seen by Provider: 12/08/23 04:03 History of Present Illness HPI Narrative: Patient is a 88-year-old female who presents emergency department with chief complaint of stroke-like symptoms. Patient reports that her last known well was approximately 10:00 p.m. last night patient reports that she has slurred speech and noticed that she had some facial asymmetry the patient reports she felt as though she was very shaky after this occurred the patient denies headache patient reports she was recently in the hospital for GI bleed but has had no further GI bleeding. Related Data Home Medications Medication Instructions Recorded Confirmed aspirin 81 mg tablet,delayed 81 mg PO DAILY 04/22/22 12/04/23 release (Adult Low Dose Aspirin) coenzyme [id number] 100 mg-100 1 cap PO DAILY 11/26/23 12/04/23 unit capsule Allergies Allergy/AdvReac Type Severity Reaction Status Date / Time cat dander Allergy Unknown Sneezing Verified 12/04/23 14:15 Sulfa (Sulfonamide Allergy Unknown Swelling Verified 12/04/23 14:15 Antibiotics) Review of Systems Review of Systems: A 10 system review of systems was completed on the patient and is negative except for what is stated in the HPI. Nursing and ancillary documentation was reviewed. FOR[facility]LY [facility] Past Medical History Medical History (Updated 12/08/23 @ 05:25 by Dewayne Jeffers MD) Actinic keratosis Benign hypertension Bilateral carotid bruits Chronic kidney disease COPD (chronic obstructive pulmonary disease) Essential (primary) hypertension Fistula Gastro-esophageal reflux disease without esophagitis Gout Hyperlipidemia Hypothyroidism Kidney stones Type 2 diabetes mellitus Surgical History Surgical History (Updated 11/27/23 @ 10:15 by Shereen Jauregui APRN) H/O lumpectomy x2 History of bladder suspension procedure (~2002) History of tonsillectomy and adenoidectomy History of total hysterectomy with bilateral salpingo-oophorectomy (BSO) (~1978) Laryngeal cyst Status post cystectomy Family History Family History Mother Family history of cardiovascular disease Acute myocardial infarction Hypertension Family history of elevated blood lipids Sibling Hypertension Social History Social History (Updated 11/27/23 @ 04:49 by Jillian J. Hopen, DO) Social History: The patient lives in [place] with her . She was from her 1st and 2008. She met her current 6 years ago and a got last year. Code status: DNR/DNI (per patient request) Healthcare power of manager psychology: Rafael ( ) Smoking packs per day: 1.5 Smoking cigarettes per day: 30.0 Years smoked: 30 Smoking pack-years: 45.00 Smoking status: Former smoker Tobacco type: cigarettes Alcohol intake: never Substance use: never Do You Feel Safe in your Home?: Yes Lack of Transportation: No Lack of Food: Never True Current Housing: I Have Housing Concerned About Future Housing: No Difficulty Paying Gas/Electric Bills: No Difficulty Paying for Meds: No Currently Unemployed: No Education: Grade School Difficulty w/ Childcare or Family Care: No Spiritual care concerns: No Exam Narrative: GENERAL: Well-appearing, well-nourished, and in no acute distress. HEAD: Normocephalic, atraumatic. EYES: PERRLA and EOMI. ENT: Nares clear, no rhinorrhea or epistaxis. Mucous membranes moist. NECK: Supple. CHEST: Clear to auscultation. No respiratory distress. HEART: Regular rate and rhythm. No murmur heard. Normal peripheral pulses. ABDOMEN: Soft, nontender, nondistended, normal active bowel sounds. EXTREMITIES: Normal range of motion. No edema. SKIN: Warm, dry, no rash. NEURO: Slurred speech, left-sided facial droop. Alert and oriented x3. PSYCH: Normal mood and a
[2023-12-08 04:05] LABS: Glucose Point of Care 166 mg/dl (65-105)
[2023-12-08 04:15] LABS: Basophils Absolute Auto 0.1 K/mm3 (0.0-0.1); Basophils Percent Auto 1.2 % (0.2-1.2); Eosinophils Absolute Auto 0.4 K/mm3 (0-0.3); Eosinophils Percent Auto 3.5 % (0-4.4); Hematocrit 39.5 % (37.0-47.0); Immature Granulocyte Absolute 0.04 K/mm3 (0.00-0.031); Immature Granulocyte Percent A 0.4 % (0-0.5); Lymphocytes Absolute Auto 2.65 K/mm3 (0.9-3.2); Lymphocytes Percent Auto 23.5 % (18.3-44.2); Mean Corpuscular HGB Conc 32.9 g/dl (32-36); Mean Corpuscular Hemoglobin 28.6 pg (26-34); Mean Corpuscular Volume 86.8 fl (80-100); Mean Platelet Volume 11.6 fl (7.4-10.4); Monocytes Absolute Auto 0.8 K/mm3 (0.1-0.6); Monocytes Percent Auto 6.9 % (2.6-8.5); Neutrophils Absolute Auto 7.3 K/mm3 (1.3-6.7); Neutrophils Percent Auto 64.5 % (45.5-73.1); Platelet Count Result 294 k/mm3 (150-375); Red Blood Count 4.55 M/mm3 (4.2-5.4); Red Cell Distribution Width 14.4 % (11.5-14.5); White Blood Count 11.3 K/mm3 (4.5-10.0)
[2023-12-08 04:19] LABS: Estimated CRCL calculation 22 ml/min; Estimated Glomerular Filt Rate 43
[2023-12-08 04:25] LABS: Alanine Aminotransferase 15 U/L (6-35); Albumin Level 4.4 g/dL (3.5-5.1); Alkaline Phosphatase 79 U/L (38-126); Anion Gap 9 mmol/L (4-12); Aspartate Amino Transferase 20 U/L (14-36); Bilirubin,Total 0.4 mg/dL (0.2-1.3); Blood Urea Nitrogen 34 mg/dL (7-17); Calcium 10.1 mg/dL (8.4-10.2); Carbon Dioxide 26 mmol/L (22-30); Chloride 104 mmol/L (98-107); Estimated CRCL calculation 28 ml/min; Estimated Glomerular Filt Rate 59; Glucose 153 mg/dL (65-110); Potassium 3.8 mmol/L (3.4-5.0); Sodium 139 mmol/L (137-145)
[2023-12-08 04:28] LABS: INR 0.9; Partial Thromboplastin Time 25.7 Seconds (22.3-36.8)
[2023-12-08 04:36] LABS: Troponin I < 0.012 ng/mL (0.000-0.034)
[2023-12-08 04:41] LABS: Appearance Urine Clear (Clear); Bacteria Urine Rare /hpf; Bilirubin Urine Negative (Negative); Blood Urine Non-Hemolyzed Trace (Negative); Color Urine Yellow (Yellow); Glucose Urine UA Negative (Negative); Ketones Urine Negative (Negative); Leukocyte Esterase Ur 1+ LEU/UL (Negative); Nitrate Urine Negative (Negative); Non Pathogenic Casts 0-2; Protein Urine Negative (Negative); RBC Urine 0-2 /hpf (0-2); Specific Grav Ur 1.019 (1.001-1.035); Squamous Epithelial Cell Urine None Seen /hpf (Few); Urobilinogen Urine 0.2 mg/dL (<2.0); pH Urine 6.5 (5.0-9.0)
[2023-12-08 04:48] LABS: Add Urine Microscopic? YES
--- NOTE | 2023-12-08 06:55 | PC.NURSE ---
Pt admitted to the floor for acute CVA. Pt is A&O x4, able to make needs know. Neuro checks completed by this RN. The only residual at this time is slurred speech and L sided facial droop. Pt denies numbness and tingling at this time. Pt was educated about the use of call light, how to request assistance when needed. Pt denied pain, SOB, nausea, dizziness at this time. Pt's provided written medication list. Medication reconciliation completed. Pt with no further questions. Will continue to monitor.
--- NOTE | 2023-12-08 07:38 | PM.IMHP ---
H&P: HPI History of Present Illness Date/Time: 12/08/23 07:38 Chief Complaint: LT sided facial weakness Narrative: Patient is 88-year-old female who presented to the emergency department with complaints of left-sided facial weakness and drooping. Patient had reported symptoms began around 10:00 p.m. states her left arm began to twitch and tingle followed by left-sided paralysis and drooping. Patient waited at home to see if symptoms would resolve on their own however after the continued for a few hours patient came to the emergency department. Patient does have a past medical history of hypertension, hypothyroidism, GERD, and HLD. Initial CTA head showed bilateral calcified plaques with no large vessel occlusions follow-up MRI showed an acute infarct of the posterior right frontal lobe. Following review of patient's medications was going to initiate atorvastatin however patient states she had stopped taking it due to bilateral leg pain lipid panel shows HLD with hypertriglycerides initiated patient on omega-3 and fenofibrate. Incidental findings on CT showed upper lung lobe nodule and on patient's previous admission just 2 weeks ago patient had lower lobe nodule which was biopsied for further evaluation however per pathology report not enough viable tissue. Patient could move upper and lower extremities appropriately only neurological deficit included left facial drooping with dysphasia. Ordered CEA which was elevated and consulted Oncology will get follow-up lung biopsy. Patient admitted to the medical unit for further evaluation and treatment of acute CVA. Review of Systems Review of Systems: All systems reviewed & are unremarkable except as noted in HPI and below PMFSH Past Medical History Medical History Actinic keratosis Benign hypertension Bilateral carotid bruits Chronic kidney disease COPD (chronic obstructive pulmonary disease) Essential (primary) hypertension Fistula Gastro-esophageal reflux disease without esophagitis Gout Hyperlipidemia Hypothyroidism Kidney stones Type 2 diabetes mellitus Surgical History Surgical History H/O lumpectomy x2 History of bladder suspension procedure (~2002) History of tonsillectomy and adenoidectomy History of total hysterectomy with bilateral salpingo-oophorectomy (BSO) (~1978) Laryngeal cyst Status post cystectomy Family History Family History Mother Family history of cardiovascular disease Acute myocardial infarction Hypertension Family history of elevated blood lipids Sibling Hypertension Social History Social History Social History: The patient lives in [place] with her . She was from her 1st and 2008. She met her current 6 years ago and a got last year. Code status: DNR/DNI (per patient request) Healthcare power of prosecuting attorney: Rafael ( ) Smoking packs per day: 1.5 Smoking cigarettes per day: 30.0 Years smoked: 30 Smoking pack-years: 45.00 Smoking status: Former smoker Alcohol intake: never Substance use: never Do You Feel Safe in your Home?: No Lack of Transportation: No Lack of Food: Never True Current Housing: I Have Housing Concerned About Future Housing: No Difficulty Paying Gas/Electric Bills: No Difficulty Paying for Meds: No Currently Unemployed: No Education: Grade School Difficulty w/ Childcare or Family Care: No Spiritual care concerns: No Meds Home Medications and Allergies Home Medications Medication Instructions Recorded Confirmed Type meclizine 25 mg tablet 25 mg PO TID #60 tabs 01/23/22 12/08/23 Rx aspirin 81 mg tablet,delayed 81 mg PO DAILY 04/22/22 12/08/23 History release (Adult Low Dose Aspirin)
[2023-12-08 08:26] LABS: LDL Cholesterol Direct 117 mg/dL
[2023-12-08 08:38] LABS: Cholesterol 257 mg/dL (0-200); HDL Direct 34 mg/dL
[2023-12-08 08:47] LABS: Carcinoembryonic Antigen 4.8 ng/mL (0.0-3.0)
[2023-12-08 09:00] LABS: Triglycerides 594 mg/dL (<150)
[2023-12-08] MEDS: PANTOPRAZOLE 40 MG TABLET PO ×2 (09:26→09:27)
[2023-12-08 11:31] LABS: Hemoglobin A1C 6.9 % (<5.7)
--- NOTE | 2023-12-08 13:16 | PDONCCN ---
[facility] - Date of Consult Date/Time: 12/08/23 13:16 Requesting Physician: Antonio Matamoros MD Primary Care Provider: Maycol Khan, DO - Consult Narrative Reason for consult: Likely lung cancer Narrative: Shellie Lund is a 88 year old female with past medical history of HTN, gout, GERD, hypothyroidism who was admitted for who presents emergency department with chief complaint of stroke-like symptoms. Patient reports that her last known well was approximately 10:00 p.m. last night patient reports that she has slurred speech and noticed that she had some facial asymmetry the patient reports she felt as though she was very shaky after this occurred the patient denies headache. Patient previously had Ct abd/pelvis showed 2.3cm nodule in R lower lung consistent with bronchogenic carcinoma. She had CT-guided biopsy of the right lower lobe lung mass done on November 28, 2023. Biopsy did not show malignancy. She denies any fatigue, shortness of breath cough and dizziness. No other new complaints. Review of Systems - Review of Systems All systems reviewed & are unremarkable except as noted in [facility] and [facility] Medical History: Medical History (Last Reviewed 12/08/23 @ 07:46 by Kenzie Smith APRN) Actinic keratosis Benign hypertension Bilateral carotid bruits Chronic kidney disease COPD (chronic obstructive pulmonary disease) Essential (primary) hypertension Fistula Gastro-esophageal reflux disease without esophagitis Gout Hyperlipidemia Hypothyroidism Kidney stones Type 2 diabetes mellitus Surgical History: Surgical History (Last Reviewed 12/08/23 @ 07:46 by Kenzie mSith APRN) H/O lumpectomy x2 History of bladder suspension procedure Onset Date: ~2002 History of tonsillectomy and adenoidectomy History of total hysterectomy with bilateral salpingo-oophorectomy (BSO) Onset Date: ~1978 Laryngeal cyst Status post cystectomy Family History: Family History (Last Reviewed 12/08/23 @ 07:47 by Kenzie Smith APRN) Mother Family history of cardiovascular disease Acute myocardial infarction Hypertension Family history of elevated blood lipids Sibling Hypertension - Social History Social History: Social History (Last Reviewed 12/08/23 @ 07:47 by Kenzie Smith APRN) Alcohol Use: Alcohol intake: never Substance Use: Substance use: never Others: Spiritual care concerns: No Smoking Status: Smoking status: Former smoker Smoking Pack-years: Smoking packs per day: 1.5 Smoking cigarettes per day: 30.0 Years smoked: 30 Smoking pack-years: 45.00 Social Determinants of Health: Do You Feel Safe in your Home?: No Has the Lack of Transportation Kept You From Medical Appointments or From Getting Medications?: No Within the Past 12 Months, Were You Worried Whether Your Food Would Run Out Before You Got Money to Buy More?: Never True What is Your Housing Situation Today?: I Have Housing Are You Worried That in the Next 2 Months, You May Not Have Your Own Housing to Live In?: No Do You Have Trouble Paying Your Heating Or Electricity Bill?: No Do You Have Trouble Paying For Medicines?: No Are You Currently Unemployed and Looking for Work?: No Highest Level of Education Completed: Grade School Do You Have Trouble With Childcare or the Care of a Family Member?: No Exam - Vital Signs Vital Signs - 24 hr 12/08/23 03:59 12/08/23 04:07 12/08/23 04:08 Temperature 37.1 C Pulse Rate 76 77 Respiratory Rate 20 Blood Pressure 176/79 H Pulse Oximetry 98 99 Oxygen Delivery Room Air Room Air 12/08/23 04:09 12/08/23 04:11 12/08/23 04:30 Temperature Pulse Rate 73 66 69 Respiratory Rate 16 13 20 Blood Pressure 176/79 H 176/79 H 153/68 H Pulse Oximetry 100 98 98 Oxygen Delivery 12/08/23 04:58 12/08/23 05:18 12/08/23 06:07 Temperature Pulse Rate 78 68 61 Respiratory Ra
[2023-12-08] MEDS: METOPROLOL SUCCINATE EXT REL 50 MG TABCR PO (16:53)
[2023-12-08] MEDS: GABAPENTIN 100 MG CAPSULE PO (16:54)
--- NOTE | 2023-12-08 17:55 | WPDNEURCNPN ---
Assessment and Plan Assessment and plan (1) Acute CVA (cerebrovascular accident): Code(s): I63.9 - Cerebral infarction, unspecified Status: Acute (2) Lung mass: Code(s): R91.8 - Other nonspecific abnormal finding of lung field Status: Acute (3) Hypertriglyceridemia: Code(s): E78.1 - Pure hyperglyceridemia Status: Acute (4) Essential (primary) hypertension: Code(s): I10 - Essential (primary) hypertension Status: Acute Plan Patient is currently being investigated by Oncology for the mass in the lung. She also has had a rectal bleed 2 weeks ago for which he was investigated and treated by GI services. At this time is a requires to work with the speech therapy as well as physical therapy. She lives with the . In view of the stroke it may be attempting to add another anti-platelet however it may be at risk in view of the recent GI bleed and pending biopsy for the mass in the right lung and hence we can continue with aspirin and to fenofibrate and omega-3 as planned by the hospitalist team. I shall be glad to discuss this further with them. Consult date: 12/08/23 Reason for consult: New onset stroke HPI: Shellie Lund is a 88 year old female history of new onset of the speech and left facial weakness presented to the hospital emergency room. Last known well at 10:00 p.m.. She has had a GI bleed and of October and a also CT angiogram did not show any large vessel occlusion. She did not qualify for tPA. She continues to have some difficulty swallowing and slurring of the speech. CT scan of the brain did not show any acute infarct however MRI of the brain shows a acute infarct in the right posterior frontal region. Right upper study shows less than 50% narrowing on both sides. No prior history of stroke she also has a lesion in the right lung for which she underwent biopsy on 11/28/2023 which did not show any significant abnormality. Oncology is investigating her further with a repeat CT-guided biopsy and PET scanning. Review of Systems Review of Systems: All systems reviewed & are unremarkable except as noted in HPI and below Constitutional: Constitutional: Reports no additional constitutional complaints Eyes: Eyes: Reports no additional eye complaints ENT: Comments: Mild difficulty in swallowing and mild dysarthria Cardiovascular: Cardiovascular: Reports as per HPI Respiratory: Respiratory: Reports as per HPI Gastrointestinal: Gastrointestinal: Reports no additional gastrointestinal complaints Musculoskeletal: Musculoskeletal: Reports no additional musculoskeletal complaints Neurologic: Reports system reviewed and no additional complaints, except as documented Psychiatric: Psychiatric: Reports no additional psychiatric complaints [facility] Past Medical History Medical History Actinic keratosis Benign hypertension Bilateral carotid bruits Chronic kidney disease COPD (chronic obstructive pulmonary disease) Essential (primary) hypertension Fistula Gastro-esophageal reflux disease without esophagitis Gout Hyperlipidemia Hypothyroidism Kidney stones Type 2 diabetes mellitus Surgical History Surgical History H/O lumpectomy x2 History of bladder suspension procedure (~2002) History of tonsillectomy and adenoidectomy History of total hysterectomy with bilateral salpingo-oophorectomy (BSO) (~1978) Laryngeal cyst Status post cystectomy Family History Family History Mother Family history of cardiovascular disease Acute myocardial infarction Hypertension Family history of elevated blood lipids Sibling Hypertension Social History Social History Social History: The patient lives in [place] with her .
[2023-12-09] VITALS (13 sets, daily range): BP systolic 129–165; BP diastolic 53–62; PULSE 60–82; RESP 16–20; TEMP 35.6–37.4; O2SAT 94–96
[2023-12-09] MEDS: LEVOTHYROXINE SODIUM 50 MCG TABLET PO (05:49)
--- NOTE | 2023-12-09 06:00 | ECHO_ITS ---
Patient Info Name: Shellie Lnud Age: 88 years : 1935 Gender: Female Ht: 60 in Wt: 128 lbs BSA: 1.58 m2 HR: 66 bpm BP: 129 / 57 mmHg Heart Rhythm: Sinus Rhythm Technical Quality: Good Exam Date: 12/09/2023 8:11 AM Exam Location: Echo Lab Patient Status: Inpatient Admit Date: 12/09/2023 Staff Ordering Physician: Dewayne Jeffers MD Aircraft Navigator: Jadiel Alejandre RDCS Attending Provider: Antonio Matamoros MD Referring Physician: Aury PERRY; Exam Type: CA echo doppler w bubble study Study Info Complete two-dimensional, color flow and Doppler transthoracic echocardiogram is performed with agitated saline. Contrast/Agitated Saline Contrast/Ag. Saline: Agitated Saline Amount: 14.00 ml IV Access Condition: patent with no signs of infiltration Summary 1. Left ventricular chamber dimension is normal. 2. Left ventricular systolic function is normal, estimated at 60-65%. 3. There is mildly increased left ventricular wall thickness. 4. The left ventricular diastolic function is grade I diastolic dysfunction. 5. Right ventricular systolic function is normal. 6. Intact interatrial septum visualized by color flow and agitated saline imaging. Negative bubble study. 7. There is mild tricuspid valve regurgitation. 8. There is mild pulmonic regurgitation. Left Ventricle Left ventricular chamber dimension is normal. Left ventricular systolic function is normal, estimated at 60-65%. There is mildly increased left ventricular wall thickness. The left ventricular diastolic function is grade I diastolic dysfunction. Right Ventricle Right ventricular chamber dimension is normal. Right ventricular systolic function is normal. Left Atria Left atrial chamber dimension is normal. Right Atria Right atrial chamber dimension is normal. Atrial Septum Intact interatrial septum visualized by color flow and agitated saline imaging. Negative bubble study. Aortic Valve The aortic valve is trileaflet. There is no aortic valve stenosis. There is no aortic valve regurgitation. There is mild aortic valve calcification. Pulmonic Valve The pulmonic valve is not well visualized. There is mild pulmonic regurgitation. Mitral Valve There is trace mitral valve regurgitation. Tricuspid Valve There is mild tricuspid valve regurgitation. Pericardium/Pleural There is no pericardial effusion. Inferior Vena Cava Normal inferior vena cava with >50% collapse upon inspiration consistent with normal right atrial pressure, 3 mmHg. Aorta The aortic root size at the sinus of Valsalva is normal. Left Ventricular Outflow Tract Name Value Normal LVOT 2D LVOT Diameter 1.9 cm LVOT Doppler LVOT Peak Gradient 4 mmHg LVOT Mean Gradient 2 mmHg LVOT VTI 15 cm LVOT VTI/AV VTI Ratio 0.6 LVOT Stroke Volume 44 ml LVOT CO 2.7 l/min LVOT CI 1.7 l/min/m2 Pulmonic Valve Name
[2023-12-09 06:32] LABS: Hematocrit 38.8 % (37.0-47.0); Hemoglobin 12.2 g/dL (12.0-15.0); Mean Corpuscular HGB Conc 31.4 g/dl (32-36); Mean Corpuscular Hemoglobin 28.4 pg (26-34); Mean Corpuscular Volume 90.4 fl (80-100); Mean Platelet Volume 11.7 fl (7.4-10.4); Platelet Count Result 268 k/mm3 (150-375); Red Blood Count 4.29 M/mm3 (4.2-5.4); Red Cell Distribution Width 14.8 % (11.5-14.5); White Blood Count 8.9 K/mm3 (4.5-10.0)
[2023-12-09 06:43] LABS: Alanine Aminotransferase 14 U/L (6-35); Albumin Level 4.1 g/dL (3.5-5.1); Alkaline Phosphatase 69 U/L (38-126); Anion Gap 11 mmol/L (4-12); Aspartate Amino Transferase 19 U/L (14-36); Bilirubin,Total 0.4 mg/dL (0.2-1.3); Blood Urea Nitrogen 27 mg/dL (7-17); Carbon Dioxide 25 mmol/L (22-30); Chloride 106 mmol/L (98-107); Estimated CRCL calculation 26 ml/min; Estimated Glomerular Filt Rate 53; Glucose 125 mg/dL (65-110); Potassium 3.6 mmol/L (3.4-5.0); Sodium 142 mmol/L (137-145)
--- NOTE | 2023-12-09 09:28 | P.PNIM_ITS ---
Progress Note: A&P Assessment and Plan (1) Acute CVA (cerebrovascular accident): Code(s): I63.9 - Cerebral infarction, unspecified Status: Acute (2) Lung mass: Code(s): R91.8 - Other nonspecific abnormal finding of lung field Status: Acute (3) Essential (primary) hypertension: Code(s): I10 - Essential (primary) hypertension Status: Acute (4) Pulmonary nodule: Code(s): R91.1 - Solitary pulmonary nodule Status: Acute (5) Hypertriglyceridemia: Code(s): E78.1 - Pure hyperglyceridemia Status: Acute Plan CVA * Neuro check q.4 hour for the 1st 24 hours. * Neurology consult * equipment monitor phototypesetting and telemetry continuously. * Blood pressure management. -Keep the systolic blood pressure more than 200 or diastolic more than 110. Then lower blood pressure by 15% within the 1st 24 hours. * MRI of the brain without contrast. * Carotids bilateral * PT/OT eval and treat. * Check for LDL and hemoglobin A1c. * Patient cannot take atorvastatin added omega-3 and fenofibrate 12/08: * Will start Plavix tomorrow post biopsy * Speech consulted for Aphasia will need continued after discharge Lung nodules/mass * Previous CT chest showed 2.3 cm nodule right lung lower lobe * Current CTA head and neck shows multilevel upper lobe nodules * CT chest is pending further evaluation * Previous lung biopsy did not have enough lung tissue for pathology * Oncology consulted * CEA elevated * Biopsy 12/08 * Will need to follow-up with oncology and do O/P PET scan Hypertension * Hypertensive * Resume patient's home metoprolol, amlodipine but will allow for permissive hypertension post possible CVA * BP per unit protocol HLD/Hypertriglyceridemia * Tri-594/Total cholesterol 257 * Can't take atorvastatin started on omega 3 and Fenofibrate * Resumed ASA will start on Plavix after lung biopsy HX B12 deficiency: Resume vitamin-D supplement HX hypothyroidism: Resume levothyroxine, TSH pending Code status: Full code per patient DVT prophylaxis: SCDs Stress ulcer prophylaxis: Protonix 40 daily PT/OT notes: PT OT pending Disposition: Patient continues admission to the medical unit for further evaluation and treatment of acute CVA speech has been consulted to further assist with her new dysphasia will need continued outpatient. Lung biopsy performed today need to monitor overnight and should be able to discharge home tomorrow, plavix ordered to start 12/09. Time Spent With Patient Time with patient: 15 - 25 minutes Subjective Date/time seen: 12/09/23 09:28 Interval history: Chief Complaint: LT sided facial weakness Narrative: Patient is 88-year-old female who presented to the emergency department with complaints of left-sided facial weakness and drooping.? Patient had reported symptoms began around 10:00 p.m. states her left arm began to twitch and tingle followed by left-sided paralysis and drooping.? Patient waited at home to see if symptoms would resolve on their own however after the continued for a few hours patient came to the emergency department.? Patient does have a past medical hi story of hypertension, hypothyroidism, GERD, and HLD.? Initial CTA head showed bilateral calcified plaques with no large vessel occlusions follow-up MRI showed an acute infarct of the posterior right frontal lobe.? Following review of patient's medications was going to initiate atorvastatin however patient states she had stopped taki
--- NOTE | 2023-12-09 09:28 | PM.IMPN ---
Progress Note: A&P Assessment and Plan (1) Acute CVA (cerebrovascular accident): Code(s): I63.9 - Cerebral infarction, unspecified Status: Acute (2) Lung mass: Code(s): R91.8 - Other nonspecific abnormal finding of lung field Status: Acute (3) Essential (primary) hypertension: Code(s): I10 - Essential (primary) hypertension Status: Acute (4) Pulmonary nodule: Code(s): R91.1 - Solitary pulmonary nodule Status: Acute (5) Hypertriglyceridemia: Code(s): E78.1 - Pure hyperglyceridemia Status: Acute Plan CVA Neuro check q.4 hour for the 1st 24 hours. 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 Blood pressure management. -Keep the systolic blood pressure more than 200 or diastolic more than 110. Then lower blood pressure by 15% within the 1st 24 hours. MRI of the brain without contrast. Carotids bilateral PT/OT eval and treat. Check for LDL and hemoglobin A1c. Patient cannot take atorvastatin added omega-3 and fenofibrate 12/08: Will start Plavix tomorrow post biopsy Speech consulted for Aphasia will need continued after discharge Lung nodules/mass Previous CT chest showed 2.3 cm nodule right lung lower lobe Current CTA head and neck shows multilevel upper lobe nodules CT chest is pending further evaluation Previous lung biopsy did not have enough lung tissue for pathology Oncology consulted CEA elevated Biopsy 12/08 Will need to follow-up with oncology and do O/P PET scan Hypertension Hypertensive Resume patient's home metoprolol, amlodipine but will allow for permissive hypertension post possible CVA BP per unit protocol HLD/Hypertriglyceridemia Tri-594/Total cholesterol 257 Can't take atorvastatin started on omega 3 and Fenofibrate Resumed ASA will start on Plavix after lung biopsy HX B12 deficiency: Resume vitamin-D supplement HX hypothyroidism: Resume levothyroxine, TSH pending Code status: Full code per patient DVT prophylaxis: SCDs Stress ulcer prophylaxis: Protonix 40 daily PT/OT notes: PT OT pending Disposition: Patient continues admission to the medical unit for further evaluation and treatment of acute CVA speech has been consulted to further assist with her new dysphasia will need continued outpatient. Lung biopsy performed today need to monitor overnight and should be able to discharge home tomorrow, plavix ordered to start 12/09. Time Spent With Patient Time with patient: 15 - 25 minutes Subjective Date/time seen: 12/09/23 09:28 Interval history: Chief Complaint: LT sided facial weakness Narrative: Patient is 88-year-old female who presented to the emergency department with complaints of left-sided facial weakness and drooping.? Patient had reported symptoms began around 10:00 p.m. states her left arm began to twitch and tingle followed by left-sided paralysis and drooping.? Patient waited at home to see if symptoms would resolve on their own however after the continued for a few hours patient came to the emergency department.? Patient does have a past medical history of hypertension, hypothyroidism, GERD, and HLD.? Initial CTA head showed bilateral calcified plaques with no large vessel occlusions follow-up MRI showed an acute infarct of the posterior right frontal lobe.? Following review of patient's medications was going to initiate atorvastatin however patient states she had stopped taking it due to bilateral leg pain lipid panel shows HLD with hypertriglycerides initiated patient on omega-3 and fenofibrate.? Incidental findings on CT showed upper lung lobe nodule and on patient's previous admission just 2 weeks ago patient had lower lobe nodule which was biopsied for further evaluation however per pathology report not enough viable tissue.? Patient could move upper and lower extremities appropriately only neurological deficit included left facial dr
[2023-12-09] MEDS: FENOFIBRATE 160 MG TABLET PO (09:43)
[2023-12-09] MEDS: CYANOCOBALAMIN 500 MCG TABLET PO (09:43)
[2023-12-09] MEDS: CYANOCOBALAMIN 1,000 MCG TABLET 2000 MCG PO (09:43)
[2023-12-09] MEDS: INDAPAMIDE 2.5 MG TABLET PO (09:44)
[2023-12-09] MEDS: METOPROLOL SUCCINATE EXT REL 50 MG TABCR PO ×2 (09:44→16:17)
[2023-12-09] MEDS: OMEGA 3 POLYUNSAT FATTY ACIDS 1 GM CAP PO (09:44)
[2023-12-09] MEDS: PANTOPRAZOLE 40 MG TABLET PO (09:44)
[2023-12-09] MEDS: amLODIPine BESYLATE 5 MG TABLET PO (09:45)
[2023-12-09] MEDS: IRBESARTAN 150 MG TABLET 300 MG PO (09:46)
[2023-12-09] MEDS: GABAPENTIN 100 MG CAPSULE PO ×2 (09:46→16:13)
--- NOTE | 2023-12-09 15:09 | PC.NURSE ---
On 12/09/23, the student, Annabel Robert, provided care and completed [facility] documentation on this patient. I have reviewed the student's documentation and agree with the findings.
[2023-12-10] VITALS (11 sets, daily range): BP systolic 116–169; BP diastolic 40–63; PULSE 56–84; RESP 14–18; TEMP 36.4–36.7; O2SAT 94–98
[2023-12-10] MEDS: LEVOTHYROXINE SODIUM 50 MCG TABLET PO (05:56)
[2023-12-10 06:17] LABS: Hemoglobin 12.6 g/dL (12.0-15.0); Mean Corpuscular HGB Conc 32.3 g/dl (32-36); Mean Corpuscular Hemoglobin 28.7 pg (26-34); Mean Corpuscular Volume 88.8 fl (80-100); Mean Platelet Volume 11.3 fl (7.4-10.4); Platelet Count Result 265 k/mm3 (150-375); Red Blood Count 4.39 M/mm3 (4.2-5.4); Red Cell Distribution Width 14.6 % (11.5-14.5)
[2023-12-10 06:30] LABS: Alanine Aminotransferase 16 U/L (6-35); Albumin Level 4.3 g/dL (3.5-5.1); Alkaline Phosphatase 68 U/L (38-126); Anion Gap 9 mmol/L (4-12); Aspartate Amino Transferase 20 U/L (14-36); Bilirubin,Total 0.6 mg/dL (0.2-1.3); Blood Urea Nitrogen 23 mg/dL (7-17); Calcium 10.1 mg/dL (8.4-10.2); Carbon Dioxide 28 mmol/L (22-30); Chloride 104 mmol/L (98-107); Estimated CRCL calculation 28 ml/min; Estimated Glomerular Filt Rate 59; Glucose 118 mg/dL (65-110); Potassium 3.9 mmol/L (3.4-5.0); Sodium 141 mmol/L (137-145)
--- NOTE | 2023-12-10 07:17 | ECG_ITS ---
Measurements Intervals [place] Rate: 60 P: 79 DC: 147 QRS: -41 QRSD: 128 T: -13 QT: 395 QTc: 395 Interpretive Statements SINUS RHYTHM MARKED LEFT AXIS DEVIATION [QRS AXIS < -30] RIGHT BUNDLE BRANCH BLOCK [120+ ms QRS DURATION, UPRIGHT V1, 40+ ms S IN I/aVL/V4/V5/V6] ABNORMAL ECG SEE SCANNED COPY FOR SIGNATURE MTDD
[2023-12-10 07:59] LABS: Glucose Point of Care 125 mg/dl (65-105)
--- NOTE | 2023-12-10 08:04 | PCPTNOTE ---
The patient treatment was not able to be completed at this time due to patient out of room for testing following code stroke called.
--- NOTE | 2023-12-10 08:35 | P.PNIM_ITS ---
Progress Note: A&P Assessment and Plan (1) Acute CVA (cerebrovascular accident): Code(s): I63.9 - Cerebral infarction, unspecified Status: Acute Assessment and Plan: * Neuro check q.4 hour * cafeteria monitor and telemetry continuously. * Blood pressure management. -Keep the systolic blood pressure more than 200 or diastolic more than 110. Then lower blood pressure by 15% within the 1st 24 hours. * MRI of the brain without contrast showing acute infarct in posterior right frontal * Carotid ultrasound less than 50% stenosis bilaterally * PT/OT/Speech eval and treat. * LDL 117, Patient cannot take atorvastatin added omega-3 and fenofibrate * Hemoglobin A1c 6.9, not currently on any diabetic medications. Will at sliding scale * Neurology consult and appreciate recommendations * Neuro recommending aspirin and adding fenofibrate and omega 3; add additional anti-platelet therapy with Plavix * Echocardiogram EF of 60 65%, grade 1 diastolic dysfunction, no PFO (2) Lung mass: Code(s): R91.8 - Other nonspecific abnormal finding of lung field Status: Acute Assessment and Plan: * Previous CT chest showed 2.3 cm nodule right lung lower lobe * Current CTA head and neck shows multilevel upper lobe nodules * CT chest 2.2 cm right lower lobe pulmonary nodule, cluster nodules in right upper lobe and right middle lobe, moderate emphysema * Previous lung biopsy did not have enough lung tissue for pathology * Oncology consulted * CEA elevated to 4.9 * Biopsy 12/08 * Will need to follow-up with oncology and do O/P PET scan (3) Urinary tract infection: Qualifiers: Hematuria presence: without hematuria Urinary tract infection type: acute cystitis Qualified Code(s): N30.00 - Acute cystitis without hematuria Code(s): N39.0 - Urinary tract infection, site not specified Status: Inactive Assessment and Plan: UA suspicious for UTI. * Patient's UA and culture was sent on 12/08/2023. * Urine culture came back positive for E coli on 12/10/2023 and Rocephin was initiated. * Sensitivities came back sensitive to Augmentin. PO Augmentin started 12/10 (4) Essential (primary) hypertension: Code(s): I10 - Essential (primary) hypertension Status: Acute Assessment and Plan: * Resume patient's home metoprolol, amlodipine but will allow for permissive hypertension post possible CVA * Hold ARB due to feelings of tongue swelling. * BP per unit protocol (5) Hypertriglyceridemia: Code(s): E78.1 - Pure hyperglyceridemia Status: Acute Assessment and Plan: * Tri-594/Total cholesterol 257 * Can't take atorvastatin started on omega 3 and Fenofibrate * Resumed ASA and start Plavix Subjective Date/time seen: 12/10/23 08:35 Interval history: Patient code stroke at 7:00 a.m. new/worsening symptoms of slurred speech and left facial droop. She also had complaints of tongue swelling . Repeat CT without contrast negative for acute bleed. CTA of the head neck with no new finding use. On review of chart it was seen that patient has not received aspirin, Plavix or any other antiplatelets/anticoagulation therapy since admission to the hospital. Once patients CT without contrast was negative for bleed, gave patient 324 mg aspirin. Instructed nurse to call Neurology to update a in with patient's acute changes. MRI may be necessary if neurology recommends. Patient's tongue did not appear swollen although she is on an ARB. Will hold ARB at this time. CT and CTA
--- NOTE | 2023-12-10 08:35 | PM.IMPN ---
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 Blood pressure management. -Keep the systolic blood pressure more than 200 or diastolic more than 110. Then lower blood pressure by 15% within the 1st 24 hours. MRI of the brain without contrast showing acute infarct in posterior right frontal Carotid ultrasound less than 50% stenosis bilaterally PT/OT/Speech eval and treat. LDL 117, Patient cannot take atorvastatin added omega-3 and fenofibrate Hemoglobin A1c 6.9, not currently on any diabetic medications. Will at sliding scale Neurology consult and appreciate recommendations Neuro recommending aspirin and adding fenofibrate and omega 3; add additional anti-platelet therapy with Plavix Echocardiogram EF of 60 65%, grade 1 diastolic dysfunction, no PFO (2) Lung mass: Code(s): R91.8 - Other nonspecific abnormal finding of lung field Status: Acute Assessment and Plan: Previous CT chest showed 2.3 cm nodule right lung lower lobe Current CTA head and neck shows multilevel upper lobe nodules CT chest 2.2 cm right lower lobe pulmonary nodule, cluster nodules in right upper lobe and right middle lobe, moderate emphysema Previous lung biopsy did not have enough lung tissue for pathology Oncology consulted CEA elevated to 4.9 Biopsy 12/08 Will need to follow-up with oncology and do O/P PET scan (3) Urinary tract infection: Qualifiers: Hematuria presence: without hematuria Urinary tract infection type: acute cystitis Qualified Code(s): N30.00 - Acute cystitis without hematuria Code(s): N39.0 - Urinary tract infection, site not specified Status: Inactive Assessment and Plan: UA suspicious for UTI. Patient's UA and culture was sent on 12/08/2023. Urine culture came back positive for E coli on 12/10/2023 and Rocephin was initiated. Sensitivities came back sensitive to Augmentin. PO Augmentin started 12/10 (4) Essential (primary) hypertension: Code(s): I10 - Essential (primary) hypertension Status: Acute Assessment and Plan: Resume patient's home metoprolol, amlodipine but will allow for permissive hypertension post possible CVA Hold ARB due to feelings of tongue swelling. BP per unit protocol (5) Hypertriglyceridemia: Code(s): E78.1 - Pure hyperglyceridemia Status: Acute Assessment and Plan: Tri-594/Total cholesterol 257 Can't take atorvastatin started on omega 3 and Fenofibrate Resumed ASA and start Plavix Subjective Date/time seen: 12/10/23 08:35 Interval history: Patient code stroke at 7:00 a.m. new/worsening symptoms of slurred speech and left facial droop. She also had complaints of tongue swelling . Repeat CT without contrast negative for acute bleed. CTA of the head neck with no new finding use. On review of chart it was seen that patient has not received aspirin, Plavix or any other antiplatelets/anticoagulation therapy since admission to the hospital. Once patients CT without contrast was negative for bleed, gave patient 324 mg aspirin. Instructed nurse to call Neurology to update a in with patient's acute changes. MRI may be necessary if neurology recommends. Patient's tongue did not appear swollen although she is on an ARB. Will hold ARB at this time. CT and CTA without any change. Neurology contacted they do not believe patient needs repeat MRI at this time. Patient neuro exam has returned to baseline. Exam Narrative: GENERAL: Comfortable, no acute distress HENMT: moist mucous membranes EYES: EOM intact b/l NECK: no lymphadenopathy RESPIRATORY: clear to auscultation, no increased respiratory effort CARDIO: Regular rate and rhythm GI: soft, nontender, bowel sounds pr
[2023-12-10] MEDS: ASPIRIN 81 MG CHEWABLE TABLET 324 MG PO (09:05)
[2023-12-10] MEDS: OMEGA 3 POLYUNSAT FATTY ACIDS 1 GM CAP PO (09:07)
[2023-12-10] MEDS: FENOFIBRATE 160 MG TABLET PO (09:07)
[2023-12-10] MEDS: INDAPAMIDE 2.5 MG TABLET PO (09:08)
[2023-12-10] MEDS: CYANOCOBALAMIN 500 MCG TABLET PO (09:08)
[2023-12-10] MEDS: CLOPIDOGREL BISULFATE 75 MG TABLET PO (09:08)
[2023-12-10] MEDS: amLODIPine BESYLATE 5 MG TABLET PO (09:09)
[2023-12-10] MEDS: METOPROLOL SUCCINATE EXT REL 50 MG TABCR PO ×2 (09:09→16:53)
[2023-12-10] MEDS: GABAPENTIN 100 MG CAPSULE PO ×3 (09:09→16:53)
[2023-12-10] MEDS: CYANOCOBALAMIN 1,000 MCG TABLET 2000 MCG PO (09:09)
[2023-12-10 12:34] LABS: Glucose Point of Care 126 mg/dl (65-105)
[2023-12-10 17:18] LABS: Glucose Point of Care 103 mg/dl (65-105)
[2023-12-10 19:36] LABS: Glucose Point of Care 146 mg/dl (65-105)
[2023-12-11] VITALS (9 sets, daily range): BP systolic 136–148; BP diastolic 51–63; PULSE 55–75; RESP 16–18; TEMP 35.8–36.6; O2SAT 94–95
[2023-12-11] MEDS: LEVOTHYROXINE SODIUM 50 MCG TABLET PO (05:36)
[2023-12-11 07:21] LABS: Hemoglobin 12.6 g/dL (12.0-15.0); Mean Corpuscular HGB Conc 32.3 g/dl (32-36); Mean Corpuscular Hemoglobin 28.6 pg (26-34); Mean Corpuscular Volume 88.6 fl (80-100); Mean Platelet Volume 11.5 fl (7.4-10.4); Platelet Count Result 252 k/mm3 (150-375); Red Cell Distribution Width 14.6 % (11.5-14.5); White Blood Count 7.5 K/mm3 (4.5-10.0)
[2023-12-11 07:41] LABS: Alanine Aminotransferase 16 U/L (6-35); Albumin Level 4.3 g/dL (3.5-5.1); Alkaline Phosphatase 69 U/L (38-126); Anion Gap 11 mmol/L (4-12); Aspartate Amino Transferase 21 U/L (14-36); Bilirubin,Total 0.5 mg/dL (0.2-1.3); Blood Urea Nitrogen 23 mg/dL (7-17); Calcium 10.2 mg/dL (8.4-10.2); Carbon Dioxide 25 mmol/L (22-30); Chloride 104 mmol/L (98-107); Estimated CRCL calculation 26 ml/min; Estimated Glomerular Filt Rate 53; Glucose 127 mg/dL (65-110); Potassium 3.7 mmol/L (3.4-5.0); Sodium 140 mmol/L (137-145)
[2023-12-11 09:44] LABS: Glucose Point of Care 155 mg/dl (65-105)
[2023-12-11] MEDS: OMEGA 3 POLYUNSAT FATTY ACIDS 1 GM CAP PO (09:44)
[2023-12-11] MEDS: GABAPENTIN 100 MG CAPSULE PO ×3 (09:44→17:00)
[2023-12-11] MEDS: FENOFIBRATE 160 MG TABLET PO (09:44)
[2023-12-11] MEDS: CYANOCOBALAMIN 1,000 MCG TABLET 2000 MCG PO (09:44)
[2023-12-11] MEDS: CYANOCOBALAMIN 500 MCG TABLET PO (09:44)
[2023-12-11] MEDS: AMOXICILLIN/CLAVULANATE K 875-125 MG TAB 1 TABLET PO (09:45)
[2023-12-11] MEDS: ASPIRIN 81 MG ENTERIC TABLET PO (09:45)
[2023-12-11] MEDS: INDAPAMIDE 2.5 MG TABLET PO (09:45)
[2023-12-11] MEDS: amLODIPine BESYLATE 5 MG TABLET PO (09:45)
[2023-12-11] MEDS: PANTOPRAZOLE 40 MG TABLET PO (09:45)
[2023-12-11] MEDS: CLOPIDOGREL BISULFATE 75 MG TABLET PO (09:45)
[2023-12-11] MEDS: METOPROLOL SUCCINATE EXT REL 50 MG TABCR PO ×2 (09:46→17:00)
--- NOTE | 2023-12-11 10:52 | WPDNEUROPN ---
Progress Note: A&P Assessment and Plan (1) Acute CVA (cerebrovascular accident): Code(s): I63.9 - Cerebral infarction, unspecified Status: Acute (2) Type 2 diabetes mellitus without complications: Code(s): E11.9 - Type 2 diabetes mellitus without complications Status: Acute (3) Hyperlipidemia: Code(s): E78.5 - Hyperlipidemia, unspecified Status: Acute (4) Hypertension: Qualifiers: Hypertension type: unspecified secondary hypertension Qualified Code(s): I15.9 - Secondary hypertension, unspecified Code(s): I10 - Essential (primary) hypertension Status: Inactive Plan Ms. Lund is an 88 year old female with a history of HTN, vitamin B12 deficiency, hypothyroidism presenting due to L sided weakness. Patient was ultimately found to have acute infarct in the posterior R frontal lobe. CTA brain/carotid showed mild to moderate stenosis of the cavernous distal ICA -- unclear if significant enough to cause the stroke. She appears to have waxing/waning L sided weakness during the admission, which is not unusual in the first 5 days after stroke due to evolving edema. - MRI brain can be obtained to check for evolution of stroke - Unclear if distal ICA stenosis is etiology of stroke. Would like 30 day event monitor placed prior to discharge - Goal LDL is < 70 -- patient cannot take statins so has been started on fenofibrate - DAPT x 3 weeks followed by aspirin 81mg daily as long as ok with other specialities - Follow-up in [facility] Neurology clinic in about 8 weeks after discharge Subjective Date/time seen: 12/11/23 10:52 Interval history: Ms. Lund is an 88 year old female with a history of HTN, vitamin B12 deficiency, hypothyroidism presenting due to L sided weakness. Patient was ultimately found to have acute infarct in the posterior R frontal lobe. CTA brain/carotid showed mild to moderate stenosis of the cavernous distal ICA. It seems that her L sided weakness improved during admission, but the nurse called hospital and Dr. Jackson yesterday that her symptoms were worsening. CTA brain/carotid was repeated, but unchanged. She had a bubble study that was negative. LDL is 117 and HgbA1c is 6.9.. She has been started on fenofibrate. She has also been started on DAPT. She was also noted to have a pulmonary nodule for which oncology is following. Today's EKG read as sinus rhythm. Review of Systems Review of Systems: All systems reviewed & are unremarkable except as noted in HPI and below Exam Const: General: comfortable and no acute distress HENMT: Mouth: Yes moist mucous membranes Eyes: Pupils: Equal, round and reactive pupils present Other: R gaze preference Resp: Effort & Inspection: normal respiratory effort Skin: General skin exam: normal color Neuro: Other: Pupils equal and reactive bilaterally, R gaze preference, L facial droop, facial sensation intact, tongue protrudes midline, palate midline. LUE 4/5, RUE 5/5, LLE 4+/5, RLE 5/5. Sensation intact throughout. FNF normal bilaterally. Language comprehension and fluency intact. Gait deferred. Extrem: General: normal to inspection Psych: Mental Status: mental status grossly normal Objective Data Vital Signs Vital Signs: Vital Signs - 24 hr 12/10/23 11:12 12/10/23 16:35 12/10/23 16:53 Temperature 36.6 C 36.4 C Pulse Rate 74 74 68 Respiratory Rate 18 16 Blood Pressure 169/53 H 139/56 L Pulse Oximetry 97 98 Oxygen Delivery 12/10/23 12:00 12/10/23 16:00 12/10/23 20:44 Temperature 36.7 C Pulse Rate 81 84 69 Respiratory Rate 14 Blood Pressure 147/61 H Pulse Oximetry 96 Oxygen Delivery 12/10/23 20:00 12/10/23 20:00 12/11/23 00:00 Temperature Pulse Rate 72 75 Respiratory Rate Blood Pressure Pulse Oximetry Oxygen Delivery Room Air 12/11/23 01:11 12/11/23 06:00 12/11/23 04:00 Temperature 36.6 C 35.9 C L Pulse Rate 73 55 L 57 L Respiratory R
[2023-12-11 11:37] LABS: Glucose Point of Care 115 mg/dl (65-105)
--- NOTE | 2023-12-11 12:40 | PM.DS ---
DS: Admitting Diagnosis Discharge Date 12/11/23 Admitting Diagnosis CVA DS: Discharge Diagnosis Discharge Diagnosis (1) Acute CVA (cerebrovascular accident): Code(s): I63.9 - Cerebral infarction, unspecified Status: Acute (2) Lung mass: Code(s): R91.8 - Other nonspecific abnormal finding of lung field Status: Acute (3) Urinary tract infection: Qualifiers: Hematuria presence: without hematuria Urinary tract infection type: acute cystitis Qualified Code(s): N30.00 - Acute cystitis without hematuria Code(s): N39.0 - Urinary tract infection, site not specified Status: Inactive (4) Essential (primary) hypertension: Code(s): I10 - Essential (primary) hypertension Status: Acute (5) Hypertriglyceridemia: Code(s): E78.1 - Pure hyperglyceridemia Status: Acute DS: Summary Hospital Course Hospital Course: Patient is 88-year-old female who presented to the emergency department with complaints of left-sided facial weakness and drooping.?States her left arm began to twitch and tingle followed by left-sided paralysis and drooping.? Patient waited at home to see if symptoms would resolve on their own however after the continued for a few hours patient came to the emergency department.? Patient does have a past medical history of hypertension, hypothyroidism, GERD, and HLD.? Initial CTA head showed bilateral calcified plaques with no large vessel occlusions follow-up MRI showed an acute infarct of the posterior right frontal lobe.? Following review of patient's medications was going to initiate atorvastatin however patient states she had stopped taking it due to bilateral leg pain lipid panel shows HLD with hypertriglycerides initiated patient on omega-3 and fenofibrate.? Incidental findings on CT showed upper lung lobe nodule and on patient's previous admission just 2 weeks ago patient had lower lobe nodule which was biopsied for further evaluation however per pathology report not enough viable tissue.? Patient could move upper and lower extremities appropriately only neurological deficit included left facial drooping with dysphasia.? Ordered CEA which was elevated and consulted Oncology will get follow-up lung biopsy.? Patient had biopsy done on 12/09/2019. On Patient code stroke at 7:00 a.m. new/worsening symptoms of slurred speech and left facial droop. ? She also had complaints of tongue swelling . Repeat CT without contrast negative for acute bleed.? CTA of the head neck with no new finding use.? On review of chart it was seen that patient has not received aspirin, Plavix or any other? antiplatelets/anticoagulation therapy since admission to the hospital.? Once patients CT without contrast was negative for bleed, gave patient 324 mg aspirin.? Instructed nurse to call Neurology to update a in with patient's acute changes. Patient's tongue did not appear swollen although she is on an ARB. Will hold ARB at this time. Due to risk of stroke will do Plavix for 3 months and a daily aspirin for the patient. Time Spent with Patient Time attestation: Total time spent providing and/or coordinating discharge services: Exam Narrative: GENERAL: Comfortable, no acute distress HENMT: moist mucous membranes EYES: EOM intact b/l NECK: no lymphadenopathy RESPIRATORY: clear to auscultation, no increased respiratory effort CARDIO: Regular rate and rhythm GI: soft, nontender, bowel sounds present SKIN/EXTREMITIES: no rashes, no edema, no redness or tenderness NEURO: PROM intact, answers questions appropriately, A&O x4, upper lower extremity strength 5/5, slurred speech present, left sided tongue deviation, PERRL, mild left facial droop DS: Data Data Completed and Pending Labs on day of discharge: Labs from last 24 hours 12/11/23 12/11/23 12/11/23 11:32 09:39 07:07 WBC 7.5 RBC 4.40 Hgb 12.6 Hct 39.0 MCV 88.6 MCH 28.6 MCHC 32.3 RDW 14.6 H Plt
[2023-12-11] MEDS: LORazepam INJ (*CRX) 2 MG/ML VIAL 1 MG IV PUSH (13:36)
[2023-12-11 16:32] LABS: Glucose Point of Care 128 mg/dl (65-105)
== END 2023-12-11 19:00 | disposition home or self-care (01) | DRG 65 ==
LOC: ANHED 05:26 → ANH3MEDSUR 05:58
PROVIDERS: Nurse Practitioner Family; Admitting Provider Internal Medicine; Emergency Provider Emergency Medicine; PCP Family Medicine; Visit Provider Student in an Organized Health Care Education/Training Program
DX: I63.9 Cerebral infarction, unspecified (principal); N39.0 Urinary tract infection, site not specified; R29.810 Facial weakness; R47.02 Dysphasia; I65.23 Occlusion and stenosis of bilateral carotid arteries; I12.9 Hypertensive chronic kidney disease with stage 1 through stage 4 chronic kidney disease, or unspecified chronic kidney disease; N18.9 Chronic kidney disease, unspecified; E11.22 Type 2 diabetes mellitus with diabetic chronic kidney disease; E78.5 Hyperlipidemia, unspecified; E03.9 Hypothyroidism, unspecified; E53.8 Deficiency of other specified B group vitamins; K21.9 Gastro-esophageal reflux disease without esophagitis; R91.8 Other nonspecific abnormal finding of lung field; R09.89 Other specified symptoms and signs involving the circulatory and respiratory systems; B96.20 Unspecified Escherichia coli [E. coli] as the cause of diseases classified elsewhere; Z87.891 Personal history of nicotine dependence; Z79.82 Long term (current) use of aspirin; Z87.442 Personal history of urinary calculi
CPT/HCPCS: 32408; 36415; 70450; 70496; 70498; 70553; 71045; 71250; 80053; 80061; 81001; 82378; 82948; 83036; 84443; 84484; 85025; 85027; 85610; 85730; 87086; 87186; 88305; 92507; 92522; 93005; 93306; 93880; 96375; 97110; 97116; 97161; 97165; 97530; 99285; A9270; A9577; G0378; J0696; J2060; Q9967

== ENCOUNTER 2023-12-26 10:38 | Outpatient (RCR) | payer MEDICARE, BC, SELFPAY ==
--- NOTE | 2023-12-26 12:30 | STOPEVDC ---
Assessment and note entered by Margaret Diez LOAD BLOCKER Thank you for referring Shellie Lund to [facility].? An evaluation has been completed. No further treatment is needed. Evaluation Information Assessment Status Evaluation Reported Pain Level Pain Score 0: Self Report Assessment ST Clinical Summary DYSARTHRIA/SPEECH EVALUATION Patient was seen for an outpatient Speech Evaluation after suffering CVA earlier in the month. She was seen while an inpatient on 12/07 for a speech evaluation that revealed minimal to mild dysarthria characterized as left labial and lingual weakness with eyes deviating to the right. Today the patient denies any difficulty swallowing but stated she feels the left side of her face is still affected. Patient reported that she feels she her speech is doing fine, however when she saw her doctor the other day, he encouraged her to come to speech therapy. Today the patient completed several of the tasks that she had completed while inpatient. She exhibited improved diadochokinetic rates (rapid repetition) for labial and lingual sounds however minimal imprecision was noted in the /p/ sound, minimal imprecision with mildly irregular rhythm noted in the /l/ sound, and patient was unable to produce and sustain a precise /k/ sound as she noted that her tongue was hitting the back of her dentures (was better at initial evaluation when dentures were not present). Patient imitated single words from the [place] Dysarthria Assessment (FDA) with 95% accuracy (was 70% on initial evaluation due to omission of /s/ sound) and the only sound that was inaccurate today the omission of the /k/ sound in the x (eks) sound in explore ( esplore ) She imitated words, phrases, and sentences with great accuracy except for omission of the /s/ sound in the x in sixty ( sickty ) Results reveal patient has a minimal to mild dysarthria characterized as minimal-mild labial/ lingual weakness, improved over hospital stay on 12/07, however some of her speech issues are a result of what appears to be over-sized dentures after her labial sounds as therapist can see teeth during some productions of bilabial sounds (p,
== END 2023-12-26 13:16 | disposition home or self-care (01) ==
LOC: ANHST 10:38
PROVIDERS: PCP Family Medicine; Visit Provider Family Medicine
DX: I69.322 Dysarthria following cerebral infarction (principal)
CPT/HCPCS: 92522

== ENCOUNTER 2024-02-13 09:28 | Inpatient (IN) | payer MEDICARE, BC, SELFPAY ==
[2024-02-13] VITALS (27 sets, daily range): BP systolic 134–187; BP diastolic 37–122; PULSE 64–91; RESP 13–25; TEMP 36.1–36.9; O2SAT 96–99
--- NOTE | ~2024-02-13 | CT_ITS ---
EXAMINATION: CT abdomen pelvis w con DATE: 02/13/2024 10:54 INDICATION: Diverticulosis presenting with bright red blood per rectum TECHNIQUE: Computed tomography (CT) of the abdomen and pelvis was performed with 100 mL Omnipaque-350 intravenous contrast. Automated exposure control and iterative reconstruction technique were employe d. The dose-length product was 321.84 mGy-cm. COMPARISON: 11/26/2023 FINDINGS: Mild to moderate emphysema at the visualized lung bases. The previously biopsied right lower lobe mas s which is concerning for malignancy to be visualized on the [employer] topogram. Correlate with results f rom prior biopsy. Heart size is normal. No pericardial or pleural effusion. Small sliding-type hiatal hernia. Small region of focal hepatic steatosis along the ligamentum teres. Couple low attenuation s ubcentimeter cysts in the liver and spleen. Small splenule. Gallbladder, pancreas and bilateral adren al glands are normal. There are bilateral renal cysts, small on the right measuring up to 11.5 cm wit h small amount of mural calcific location on the left. There is also unchanged 1.5 cm soft tissue den sity lesion at the lower pole the right kidney which remains equivocal for renal cell carcinoma versu s complex proteinaceous/hemorrhagic cyst. There is extensive colonic diverticulosis without adjacent inflammatory stranding to suggest diverticulitis. No bowel obstruction. Bladder is normal. The uterus is not identified and has likely been surgically resected. No free intraperitoneal gas or fluid. No pathologically enlarged abdominal or pelvic lymphadenopathy. Couple tiny fat-containing pelvic ventra l hernias along a transverse likely section scar. Mild lumbar dextrocurvature with severe sp ondylosis. Postoperative change of likely prior sigmoidectomy with rectosigmoid anastomosis. Decubitu s scarring in the subcutaneous fat overlying the bilateral ischial tuberosities. IMPRESSION: 1. Extensive diverticulosis without evident diverticulitis or other acute intra-abdominal/pelvic proc ess. 2. No change in an indeterminate 1.5 cm right renal lesion with soft tissue density which could repre sent either renal cell carcinoma or complex proteinaceous/hemorrhagic cyst. Recommend further evaluat ion with pre and postcontrast MRI or CT. Reviewed, dictated and finalized at location A. IMPRESSION: 1. Extensive diverticulosis without evident diverticulitis or other acute intra -abdominal/pelvic process. 2. No change in an indeterminate 1.5 cm right renal lesion with soft tissue den sity which could represent either renal cell carcinoma or complex proteinaceous /hemorrhagic cyst. Recommend further evaluation with pre and postcontrast MRI o r CT.
[2024-02-13 09:51] LABS: Basophils Absolute Auto 0.1 K/mm3 (0.0-0.1); Eosinophils Absolute Auto 0.2 K/mm3 (0-0.3); Eosinophils Percent Auto 2.2 % (0-4.4); Hematocrit 40.2 % (37.0-47.0); Hemoglobin 13.1 g/dL (12.0-15.0); Immature Granulocyte Absolute 0.04 K/mm3 (0.00-0.031); Immature Granulocyte Percent A 0.4 % (0-0.5); Lymphocytes Percent Auto 14.9 % (18.3-44.2); Mean Corpuscular HGB Conc 32.6 g/dl (32-36); Mean Corpuscular Hemoglobin 28.2 pg (26-34); Mean Corpuscular Volume 86.5 fl (80-100); Mean Platelet Volume 11.8 fl (7.4-10.4); Monocytes Absolute Auto 0.7 K/mm3 (0.1-0.6); Monocytes Percent Auto 6.8 % (2.6-8.5); Neutrophils Absolute Auto 7.5 K/mm3 (1.3-6.7); Neutrophils Percent Auto 74.7 % (45.5-73.1); Platelet Count Result 270 k/mm3 (150-375); Red Blood Count 4.65 M/mm3 (4.2-5.4); Red Cell Distribution Width 13.9 % (11.5-14.5); White Blood Count 10.1 K/mm3 (4.5-10.0)
[2024-02-13 10:01] LABS: Partial Thromboplastin Time 23.3 Seconds (22.3-36.8); Prothrombin Time 13.6 Seconds (11.1-14.7)
[2024-02-13 10:08] LABS: Alanine Aminotransferase 22 U/L (6-35); Albumin Level 4.7 g/dL (3.5-5.1); Alkaline Phosphatase 47 U/L (38-126); Anion Gap 11 mmol/L (4-12); Aspartate Amino Transferase 33 U/L (14-36); Bilirubin,Total 0.5 mg/dL (0.2-1.3); Blood Urea Nitrogen 33 mg/dL (7-17); Calcium 9.8 mg/dL (8.4-10.2); Carbon Dioxide 23 mmol/L (22-30); Chloride 108 mmol/L (98-107); Estimated CRCL calculation 26 ml/min; Estimated Glomerular Filt Rate 53; Glucose 143 mg/dL (65-110); Potassium 3.9 mmol/L (3.4-5.0); Sodium 142 mmol/L (137-145)
--- NOTE | 2024-02-13 10:11 | ED.GIBLEED ---
HPI - GI Bleed General Chief complaint: GI Bleed <DARNELL Orozco Filed: 02/13/24 13:35> Stated complaint: rectal bleeding <DARNELL Orozco Filed: 02/13/24 13:35> Time Seen by Provider: 02/13/24 09:50 <DARNELL Orozco Filed: 02/13/24 13:35> Source: patient <DARNELL Orozco Filed: 02/13/24 13:35> Mode of arrival: ambulatory <DARNELL Orozco Filed: 02/13/24 13:35> Limitations: no limitations <DARNELL Orozco Filed: 02/13/24 13:35> History of Present Illness HPI Narrative: Patient is an 88 y/o female who presents to the ED with c/o bright red rectal bleeding. Patient reports hx of diverticulosis and rectal bleeding, last had an episode in October of this year. She was admitted to the hospital at that time, patient treated conservatively. She reports last colonoscopy was at least 6 years ago. She began having bright red rectal bleeding this morning around 6:00 a.m.. States the blood was mixed in with the stool at that time. Denies pain with bowel movement. She then had another episode of passing mostly bright red blood, minimal stool, clots were noted early this morning. She then prompted here for further evaluation. Patient denies abdominal pain, nausea, vomiting, fevers, dizziness, lightheadedness. She is on any blood thinners. <DARNELL Orozco Filed: 02/13/24 13:35> Related Data Home medications: Home Medications Medication Instructions Recorded Confirmed aspirin 81 mg tablet,delayed 81 mg PO DAILY 04/22/22 02/13/24 release (Adult Low Dose Aspirin) meclizine 25 mg tablet 25 mg PO TID PRN Dizziness Or 02/13/24 02/13/24 Vertigo <DARNELL Orozco Filed: 02/13/24 13:35> Allergies/Adverse reactions: Allergies Allergy/AdvReac Type Severity Reaction Status Date / Time cat dander Allergy Unknown Sneezing Verified 02/13/24 14:58 Sulfa (Sulfonamide Allergy Unknown Swelling Verified 02/13/24 14:58 Antibiotics) atorvastatin AdvReac Muscle Pain Verified 02/13/24 14:58 <Cristina Khalil PA-C - Last Filed: 02/13/24 13:35> Review of Systems Review of Systems: CONSTITUTIONAL: Denies fever, chills, or sweats. GASTROINTESTINAL: See HPI. GENITOURINARY: Denies dysuria or hematuria. MUSCULOSKELETAL: Denies back pain, extremity pain, myalgia. NEUROLOGIC: Denies headache, dizziness, numbness, or weakness. <Cristina Khalil PA-C - Last Filed: 02/13/24 13:35> All systems reviewed & are unremarkable except as noted in HPI and below <Cristina Khalil PA-C - Last Filed: 02/13/24 13:35> [facility] Past Medical History Medical History: Medical History (Updated 02/13/24 @ 14:03 by Aurora Ramos PA-C) Actinic keratosis Bilateral carotid bruits Carotid Doppler ultrasounds in December 2023 showed less than 50% stenosis in bilateral internal carotid arteries. 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 She has declined attempts that another biopsy. Right renal mass 1.5 cm right renal lesion Type 2 diabetes mellitus <Cristina Khalil PA-C - Last Filed: 02/13/24 13:35> Surgical History Surgical History: Surgical History (Updated 02/13/24 @ 13:48 by Aurora Ramos PA-C) History of bladder suspension procedure (2002) History of breast biopsy History of tonsillectomy and adenoidectomy History of total hysterectomy with bilateral salpingo-oophorectomy (BSO) (1978) Laryngeal cyst Status post cystectomy
--- NOTE | 2024-02-13 13:40 | PM.IMHP ---
H&P: HPI History of Present Illness Date/Time: 02/13/24 13:40 Chief Complaint: Rectal bleeding. Narrative: This is an very pleasant 88-year-old female with history of stroke in December 2023, hypertension, diastolic dysfunction, chronic kidney disease, type 2 diabetes mellitus, hypothyroidism, gastroesophageal reflux disease, known 1.5 cm right renal lesion, and a right lower lobe mass suspicious for bronchogenic carcinoma (CT-guided biopsies in October and December 2023 did not show malignancy but material was scant) who presented to the emergency department via private vehicle from home for evaluation of rectal bleeding. The patient provides the following history. He was admitted to the hospital in October 2023 with bright red blood per rectum thought to be diverticular or hemorrhoidal in nature. Bleeding stopped within a day, her hemoglobin was stable, and due to her preference for a conservative approach a colonoscopy was not done. She presents today after passing several painless, bright red bloody stools this morning and this is the 1st time she has blood since October. Not long prior to my evaluation she got up to use the restroom and got very lightheaded and dizzy. Nurse called me with concerns for near-syncope and reports that her blood pressures dropped into the 80s systolic. Vital signs normalized once she was back in bed. She denies syncope, chest pain, shortness of breath, epigastric and abdominal pain, vomiting, hematemesis, and melena. She is currently on a baby aspirin daily and had been on clopidogrel for several weeks following a recent cerebrovascular accident in mid November with left-sided weakness, left facial droop, and some speech difficulties which are improving. In the ED: She was afebrile on arrival with stable vital signs. Labs were significant for a hemoglobin of 13.1, hematocrit 40.2%, INR 1.0, BUN 33, creatinine 1.00. CT scan showed extensive diverticulitis without evidence of diverticulosis She is being admitted in this setting for close monitoring and GI consultation. Review of Systems Review of Systems: 12 systems were reviewed and are negative except for as per HPI. [facility] Past Medical History Medical History (Updated 02/13/24 @ 22:15 by Aurora Ramos PA-C) Actinic keratosis Bilateral carotid bruits Carotid Doppler ultrasounds in December 2023 showed less than 50% stenosis in bilateral internal carotid arteries. 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 She has declined attempts that another biopsy. Right renal mass 1.5 cm right renal lesion Type 2 diabetes mellitus Surgical History Surgical History (Updated 02/13/24 @ 13:48 by Aurora Ramos PA-C) History of bladder suspension procedure (2002) History of breast biopsy History of tonsillectomy and adenoidectomy History of total hysterectomy with bilateral salpingo-oophorectomy (BSO) (1978) Laryngeal cyst Status post cystectomy Family History Family History Mother Family history of cardiovascular disease Acute myocardial infarction Hypertension Family history of elevated blood lipids Sibling Hypertension Social History Social History (Updated 02/13/24 @ 14:04 by Aurora Ramos PA-C) Social History: Surrogate medical decision maker: Rafael Lund, spouse. Code status: Full code. Smoking packs per day: 1.5 Smoking cigarettes per day: 30.0 Years smoked: 30 Smoking pack-years: 45.00 Smoking status: Former smoker Alcohol intake: never Substance use: never Substance use type:
[2024-02-13 14:42] LABS: Hematocrit 34.6 % (37.0-47.0); Hemoglobin 11.4 g/dL (12.0-15.0)
--- NOTE | 2024-02-13 14:54 | ADMGEN ---
This patient, Shellie Lund, was admitted to Medical Room 247-. Patient/family oriented to hospital policies and general routines including ID bracelet, bed and alarms, visiting hours, pain management, procedures, bathroom and other care routines, personal items, smoking policy, room service/diet, and visiting hours. Information on how to activate the Rapid Response Team has been discussed. Patient/Family are encouraged to report perceived risks to care and to ask questions if they do not understand what they are told or what they should do.
--- NOTE | 2024-02-13 16:13 | PC.NURSE ---
0599 Patient had large bright red bowel movement on BSC stated she felt like she was going to pass out. Assisted patient back to bed and bp 84/47. After lying flat for couple min bp was 140/70. Aurora Ramos and Dr Gomez notified. New orders received.
[2024-02-13] MEDS: LACTATED RINGERS 500 ML 100 ML IV CONT (16:23)
[2024-02-13 16:26] LABS: Hemoglobin 11.2 g/dL (12.0-15.0)
--- NOTE | 2024-02-13 17:04 | WPDGICN ---
Assessment and Plan Assessment and plan (1) GI bleed: Code(s): K92.2 - Gastrointestinal hemorrhage, unspecified Status: Acute Assessment and Plan: this time she is agreeable to have colonoscopy last hospitalization only treated conservatively she is symptomatic from bleeding monitor for more signs of bleeding, I explained that often we can tell that bleeding is from diverticula but if during the procedure there is not more active bleeding then we can not tell which diverticula was the source. if more bleeding then consider surgery consult or IR evaluation for embolization (2) Acute GI bleeding: Code(s): K92.2 - Gastrointestinal hemorrhage, unspecified Status: Acute (3) Diverticulosis: Code(s): K57.90 - Diverticulosis of intestine, part unspecified, without perforation or abscess without bleeding Status: Acute (4) RB (rectal bleeding): Code(s): K62.5 - Hemorrhage of anus and rectum Status: Acute (5) Acute blood loss anemia: Code(s): D62 - Acute posthemorrhagic anemia Status: Acute Assessment and Plan: trend h/h GI Consult Note Consult date/time: 02/13/24 17:04 Reason for consult: rectal bleeding HPI: Shellie Lund is a 88 year old female with history of hypertension, gout, GERD, and kidney stones with previous hospitalization due to LGIB that resolved spontaneously and had colonoscopy 2016, no more procedures since- was told that related to diverticula, since she has been admitted again more than once and always managed conservatively last time 10/2023. This time again with several episodes of maroon stool in color, denies abdominal pain but lightheaded. hgb 13 down to 11.2. Sister is at bedside. This time she willie like to get colonoscopy again. Review of Systems Constitutional: Constitutional: Denies chills Eyes: Eyes: Denies blurry vision ENT: Reports Normal hearing present Cardiovascular: Cardiovascular: Reports lightheadedness Respiratory: Respiratory: Denies cough Gastrointestinal: Gastrointestinal: Reports hematochezia Genitourinary: Genitourinary: Denies dysuria Musculoskeletal: Musculoskeletal: Denies back pain Integumentary/Breasts: Skin/Breast: Denies rash Neurologic: Denies Abnormal speech present Psychiatric: Psychiatric: Denies behavioral changes FOR[facility]LY [facility] Past Medical History Medical History (Updated 02/13/24 @ 14:03 by Aurora Ramos PA-C) Actinic keratosis Bilateral carotid bruits Carotid Doppler ultrasounds in December 2023 showed less than 50% stenosis in bilateral internal carotid arteries. 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 She has declined attempts that another biopsy. Right renal mass 1.5 cm right renal lesion Type 2 diabetes mellitus Surgical History Surgical History (Updated 02/13/24 @ 13:48 by Aurora Ramos PA-C) History of bladder suspension procedure (2002) History of breast biopsy History of tonsillectomy and adenoidectomy History of total hysterectomy with bilateral salpingo-oophorectomy (BSO) (1978) Laryngeal cyst Status post cystectomy Family History Family History Mother Family history of cardiovascular disease Acute myocardial infarction Hypertension Family history of elevated blood lipids Sibling Hypertension Social History Social History (Updated 02/13/24 @ 14:04 by Aurora Ramos PA-C) Social History: Surrogate medical decision maker: Rafael Lund, spouse. Code status: Full code. Smoking packs per d
[2024-02-13] MEDS: BISACODYL 5 MG TABLET EC 20 MG PO (18:11)
[2024-02-13] MEDS: polyethylene glycoL 3350 238 GM BOTTLE PO (18:12)
[2024-02-13] MEDS: ONDANSETRON INJ 4 MG/2 ML VIAL IV PUSH (20:07)
[2024-02-13] MEDS: MAGNESIUM CITRATE 300 ML BTL PO (20:08)
[2024-02-13 20:10] LABS: Hematocrit 34.6 % (37.0-47.0); Hemoglobin 11.4 g/dL (12.0-15.0)
[2024-02-13] MEDS: GABAPENTIN 100 MG CAPSULE PO (23:10)
[2024-02-13] MEDS: METOPROLOL SUCCINATE EXT REL 50 MG TABCR PO (23:10)
[2024-02-13 23:53] LABS: Glucose Point of Care 147 mg/dl (65-105)
[2024-02-14] VITALS (21 sets, daily range): BP systolic 83–170; BP diastolic 33–76; PULSE 57–83; RESP 15–20; TEMP 35.9–36.8; O2SAT 95–98; BMI 24.0
[2024-02-14 01:35] LABS: Hematocrit 31.2 % (37.0-47.0); Hemoglobin 10.3 g/dL (12.0-15.0)
[2024-02-14 06:07] LABS: Glucose Point of Care 107 mg/dl (65-105)
--- NOTE | 2024-02-14 06:57 | PM.IMPN ---
Progress Note: A&P Assessment and Plan (1) GI bleed: Code(s): K92.2 - Gastrointestinal hemorrhage, unspecified Status: Acute Assessment and Plan: Reports of bright red blood per rectum -Hemoglobin on admission was 13.1 g/dL, now 10.3 this morning -Trend H/H q 6 hours. Transfuse less than 7 g/dL -Will go for a colonoscopy today 02/13 -CT abdomen and pelvis shows diverticulosis but no diverticulitis or abscess -Blood pressures have been stable. Systolic running 130-160's. She did have an orthostatic episode overnight when standing. -Fall precautions and ambulate with assistance -Holding Plavix, ASA during bleeding episode -GI was consulted and recs appreciated (2) Near syncope: Code(s): R55 - Syncope and collapse Status: Acute Assessment and Plan: likely 2/2 to dehydration from blood loss see above (3) Diverticulosis: Code(s): K57.90 - Diverticulosis of intestine, part unspecified, without perforation or abscess without bleeding Status: Acute Assessment and Plan: see 1 (4) Recent cerebrovascular accident: Code(s): Z86.73 - Personal history of transient ischemic attack (TIA), and cerebral infarction without residual deficits Status: Acute Assessment and Plan: Stroke in 12/2023 with left sided residual -started on Plavix, aspirin at that time -currently holding DAPT during acute bleed -PT/OT/ST after colonoscopy (5) Type 2 diabetes mellitus: Code(s): E11.9 - Type 2 diabetes mellitus without complications Status: Acute Assessment and Plan: Hemoglobin A1C 6.9% -POC glucose less than 150 -Q6 accu checks -Corrective low dose insulin Q 6 while NPO -hypoglycemia protocol (6) Chronic kidney disease: Code(s): N18.9 - Chronic kidney disease, unspecified Status: Acute Assessment and Plan: Cr 1.0, BUN 33, GFR 53 -avoid nephrotoxic agents -renally dose medications -monitor BMP (7) Hypertension: Code(s): I10 - Essential (primary) hypertension Status: Acute Assessment and Plan: On amlodipine 5 mg, Indapamide 2.5 mg, irbesartan 300 mg, and metoprolol succinate 50 mg -Metoprolol restarted -holding other anti-hypertensive, diuretic in setting of bleeding with orthostasis. -Blood pressures at rest are stable (8) Right renal mass: Code(s): N28.89 - Other specified disorders of kidney and ureter Status: Acute Assessment and Plan: Known renal mass, patient does not wish to investigate further (9) Right lower lobe lung mass: Code(s): R91.8 - Other nonspecific abnormal finding of lung field Status: Acute Assessment and Plan: Recent lung biopsy during last admission 12/2023 did not show malignancy Plan Feeding: NPO Analgesia: Tylenol Thromboembolic prophylaxis: SCD Ulcer prophylaxis: PPI Glycemic control: Q 6 insulin, Q6 blood glucose, hypoglycemic protocol Bowel regimen: na Lines: PIV Antibiotics: na Disposition: Return home with spouse at discharge with outpatient [facility]. Subjective Date/time seen: 02/14/24 06:57 Interval history: This is an very pleasant 88-year-old female with history of stroke in December 2023, hypertension, diastolic dysfunction, chronic kidney disease, type 2 diabetes mellitus, hypothyroidism, gastroesophageal reflux disease, known 1.5 cm right renal lesion, and a right lower lobe mass suspicious for bronchogenic carcinoma (CT-guided biopsies in October and December 2023 did not show malignancy but material was scant) who presented to the emergency department via private vehicle from home for evaluation of rectal bleeding. 02/13: Patient is seen today after her colonoscopy. Resting in bed eating her lunch. She denies abdominal waiting, nausea, vomiting, or recurrent bloody stools. She has not been out of her bed yet today since her procedure. Colonoscopy shows diverticulosis without perforation or abscess
[2024-02-14 07:39] LABS: Hematocrit 29.8 % (37.0-47.0); Hemoglobin 9.5 g/dL (12.0-15.0); Mean Corpuscular HGB Conc 31.9 g/dl (32-36); Mean Corpuscular Hemoglobin 28.1 pg (26-34); Mean Corpuscular Volume 88.2 fl (80-100); Mean Platelet Volume 11.5 fl (7.4-10.4); Platelet Count Result 244 k/mm3 (150-375); Red Blood Count 3.38 M/mm3 (4.2-5.4); Red Cell Distribution Width 14.3 % (11.5-14.5); White Blood Count 9.5 K/mm3 (4.5-10.0)
[2024-02-14 07:49] LABS: Anion Gap 8 mmol/L (4-12); Blood Urea Nitrogen 30 mg/dL (7-17); Calcium 9.3 mg/dL (8.4-10.2); Carbon Dioxide 25 mmol/L (22-30); Chloride 107 mmol/L (98-107); Estimated CRCL calculation 22 ml/min; Estimated Glomerular Filt Rate 43; Glucose 114 mg/dL (65-110); Magnesium 2.6 mg/dL (1.6-2.3); Potassium 3.6 mmol/L (3.4-5.0); Sodium 140 mmol/L (137-145)
[2024-02-14 07:54] LABS: Glucose Point of Care 116 mg/dl (65-105)
[2024-02-14] MEDS: METOPROLOL SUCCINATE EXT REL 50 MG TABCR PO ×2 (08:14→20:59)
--- NOTE | 2024-02-14 08:45 | PC.NURSE ---
Report given to Nagi [facility].
--- NOTE | 2024-02-14 08:45 | PC.NURSE ---
To GI Lab via [employer].
--- NOTE | 2024-02-14 08:56 | WPDANESEPPF ---
Anes - Initial Pre Proc Eval Procedure: Operation Date: 02/14/24 08:00 Proposed Procedures p Colonoscopy - Angelito Mckeon MD Date/Time: 02/14/24 08:56 Surgeon: Javier Torres MD Pre Op Diagnosis: GI Bleeding/Diverticulosis Patient Data Age: 88 Gender: F Height: 1.52 m Weight: 55.7 kg Last Vital Signs Temp 36.7 C 02/14/24 05:16 Pulse 74 02/14/24 08:32 Resp 18 02/14/24 08:03 BP 106/52 L 02/14/24 08:32 Pulse Ox 98 02/14/24 08:03 O2 Del Method Room Air 02/14/24 08:03 Allergies Allergy/AdvReac Type Severity Reaction Status Date / Time cat dander Allergy Unknown Sneezing Verified 02/13/24 14:58 Sulfa (Sulfonamide Allergy Unknown Swelling Verified 02/13/24 14:58 Antibiotics) atorvastatin AdvReac Muscle Pain Verified 02/13/24 14:58 Home Medications Medication Instructions Recorded Confirmed Type aspirin 81 mg tablet,delayed 81 mg PO DAILY 04/22/22 02/13/24 History release (Adult Low Dose Aspirin) gabapentin 100 mg capsule 100 mg PO TID #90 caps 08/15/23 02/13/24 Rx levothyroxine 50 mcg tablet See Rx Instructions .Route 08/29/23 02/13/24 Rx (Synthroid) .COMPLEX #90 tabs indapamide 2.5 mg tablet 2.5 mg PO DAILY #90 tabs 09/02/23 02/13/24 Rx lansoprazole 30 mg capsule,delayed 30 mg PO DAILY #90 caps 11/20/23 02/13/24 Rx release irbesartan 300 mg tablet 300 mg PO DAILY #90 tabs 12/26/23 02/13/24 Rx indomethacin 50 mg capsule 50 mg PO TID PRN gout 90 days #90 12/31/23 02/13/24 Rx caps fenofibrate 160 mg tablet 160 mg PO DAILY #90 tabs 01/12/24 02/13/24 Rx amlodipine 5 mg tablet 5 mg PO DAILY #90 tabs 02/06/24 02/13/24 Rx metoprolol succinate 50 mg 50 mg PO BID #180 tabs 02/09/24 02/13/24 Rx tablet,extended release 24 hr meclizine 25 mg tablet 25 mg PO TID PRN Dizziness Or 02/13/24 02/13/24 History Vertigo Laboratory Tests 02/13/24 02/13/24 02/13/24 09:43 14:37 16:20 WBC 10.1 H K/mm3 (4.5-10.0) RBC 4.65 M/mm3 (4.2-5.4) Hgb 13.1 g/dL 11.4 L g/dL 11.2 L g/dL (12.0-15.0) (12.0-15.0) (12.0-15.0) Hct 40.2 % 34.6 L % 34.0 L % (37.0-47.0) (37.0-47.0) (37.0-47.0) MCV 86.5 fl (80-100) MCH 28.2 pg (26-34) MCHC 32.6 g/dl (32-36) RDW 13.9 % (11.5-14.5) Plt Count 270 k/mm3 (150-375) MPV 11.8 H fl (7.4-10.4) Immature Gran % (Auto) 0.4 % (0-0.5) Neut % (Auto) 74.7 H % (45.5-73.1) Lymph % (Auto) 14.9 L % (18.3-44.2) [place] % (Auto) 6.8 % (2.6-8.5) Eos % (Auto) 2.2 % (0-4.4) Baso % (Auto) 1.0 % (0.2-1.2) Lymph # (Auto) 1.50 K/mm3 (0.9-3.2) [place] # (Auto) 0.7 H K/mm3 (0.1-0.6) Eos # (Auto) 0.2 K/mm3 (0-0.3) Baso # (Auto) 0.1 K/mm3 (0.0-0.1) Abs Immat Gran (auto) 0.04 H K/mm3 (0.00-0.031) Absolute Neuts (auto) 7.5 H K/mm3 (1.3-6.7) Absolute Nucleated RBC 0.000 K/mm3 (0.0-0.012) Nucleated RBC % 0.0 % (0.0-0.2) PT 13.6 Seconds (11.1-14.7) INR 1.0 APTT 23.3 Seconds (22.3-36.8) Sodium 142 mmol/L (137-145) Potassium 3.9 mmol/L (3.4-5.0) Chloride 108 H mmol/L (98-107) Carbon Dioxide 23 mmol/L (22-30) Anion Gap 11 mmol/L (4-12) BUN 33 H D mg/dL (7-17) Creatinine 1.00 mg/dL (0.7-1.0) Estim Creat Clear Calc 26 ml/min Estimated GFR 53 L (59 - ) Glucose 143 H mg/dL (65-110) POC Capillary Glucose Calcium 9.8 mg/dL (8.4-10.2) Magnesium Total Bilirubin 0.5 mg/dL (0.2-1.3) AST 33 U/L (14-36) ALT 22 U/L (6-35) Alkaline Phosphatase 47 U/L (38-126) Total Protein 8.0 g/dL (6.3-8.2) Albumin 4.7 g/dL (3.5-5.1) Blood Type B Positive
[2024-02-14] MEDS: LACTATED RINGERS 1,000 ML 150 ML IV CONT (08:59)
[2024-02-14 09:29] LABS: Glucose Point of Care 140 mg/dl (65-105)
--- NOTE | 2024-02-14 09:55 | PC.NURSE ---
Returned from GI Lab via stretcher. Family at bedside.
[2024-02-14] MEDS: PANTOPRAZOLE 40 MG TABLET PO (10:03)
[2024-02-14 11:37] LABS: Glucose Point of Care 138 mg/dl (65-105)
[2024-02-14] MEDS: GABAPENTIN 100 MG CAPSULE PO ×2 (12:10→17:04)
[2024-02-14] MEDS: SODIUM CHLORIDE 0.9% IV 1,000 ML 100 ML IV CONT (14:25)
[2024-02-14 15:59] LABS: Hemoglobin 8.7 g/dL (12.0-15.0)
[2024-02-14 16:49] LABS: Glucose Point of Care 103 mg/dl (65-105)
[2024-02-14 23:13] LABS: Glucose Point of Care 100 mg/dl (65-105)
[2024-02-15] VITALS (11 sets, daily range): BP systolic 123–145; BP diastolic 30–58; PULSE 62–82; RESP 17–18; TEMP 36.5–36.7; O2SAT 97–98
[2024-02-15 05:06] LABS: Basophils Absolute Auto 0.1 K/mm3 (0.0-0.1); Eosinophils Absolute Auto 0.2 K/mm3 (0-0.3); Eosinophils Percent Auto 2.4 % (0-4.4); Hematocrit 26.2 % (37.0-47.0); Hemoglobin 8.2 g/dL (12.0-15.0); Immature Granulocyte Absolute 0.02 K/mm3 (0.00-0.031); Immature Granulocyte Percent A 0.3 % (0-0.5); Lymphocytes Absolute Auto 1.83 K/mm3 (0.9-3.2); Lymphocytes Percent Auto 23.4 % (18.3-44.2); Mean Corpuscular HGB Conc 31.3 g/dl (32-36); Mean Corpuscular Hemoglobin 28.2 pg (26-34); Monocytes Absolute Auto 0.7 K/mm3 (0.1-0.6); Monocytes Percent Auto 8.6 % (2.6-8.5); Neutrophils Percent Auto 64.3 % (45.5-73.1); Platelet Count Result 207 k/mm3 (150-375); Red Blood Count 2.91 M/mm3 (4.2-5.4); Red Cell Distribution Width 14.1 % (11.5-14.5); White Blood Count 7.8 K/mm3 (4.5-10.0)
[2024-02-15 05:19] LABS: Alanine Aminotransferase 17 U/L (6-35); Albumin Level 3.4 g/dL (3.5-5.1); Alkaline Phosphatase 35 U/L (38-126); Anion Gap 3 mmol/L (4-12); Aspartate Amino Transferase 22 U/L (14-36); Bilirubin,Total 0.2 mg/dL (0.2-1.3); Blood Urea Nitrogen 28 mg/dL (7-17); Calcium 8.6 mg/dL (8.4-10.2); Carbon Dioxide 28 mmol/L (22-30); Chloride 109 mmol/L (98-107); Estimated CRCL calculation 22 ml/min; Estimated Glomerular Filt Rate 43; Glucose 107 mg/dL (65-110); Potassium 3.4 mmol/L (3.4-5.0); Sodium 140 mmol/L (137-145)
[2024-02-15] MEDS: SODIUM CHLORIDE 0.9% IV 1,000 ML 100 ML IV CONT (05:46)
[2024-02-15] MEDS: LEVOTHYROXINE SODIUM 50 MCG TABLET BY MOUTH (06:07)
--- NOTE | 2024-02-15 07:04 | PM.IMPN ---
Progress Note: A&P Assessment and Plan (1) GI bleed: Code(s): K92.2 - Gastrointestinal hemorrhage, unspecified Status: Acute Assessment and Plan: Reports of bright red blood per rectum -Hemoglobin on admission was 13.1 g/dL, now 10.3 this morning -Trend H/H q 6 hours. Transfuse less than 7 g/dL -Will go for a colonoscopy today 02/13 -CT abdomen and pelvis shows diverticulosis but no diverticulitis or abscess -Blood pressures have been stable. Systolic running 130-160's. She did have an orthostatic episode overnight when standing. -Fall precautions and ambulate with assistance -Holding Plavix, ASA during bleeding episode -GI was consulted and recs appreciated 02/14: Hemoglobin 8.2 g/dL. I have discussed with the patient the possibility of need 1 unit of pRBC should her H/H continue to drop. Anticipate it plateauing soon. 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 HS. Low-fiber diet (6) Chronic kidney disease: Code(s): N18.9 - Chronic kidney disease, unspecified Status: Acute Assessment and Plan: Cr 1.0, BUN 33, GFR 53 -avoid nephrotoxic agents -renally dose medications -monitor BMP (7) Hypertension: Code(s): I10 - Essential (primary) hypertension Status: Acute Assessment and Plan: On amlodipine 5 mg, Indapamide 2.5 mg, irbesartan 300 mg, and metoprolol succinate 50 mg -Metoprolol restarted -holding other anti-hypertensive, diuretic in setting of bleeding with orthostasis. -Blood pressures at rest are stable 02/14: Blood pressure are improving. Stopping IVF today. Will see how her blood pressures do. Likely restart antihypertensives tomorrow. (8) Right renal mass: Code(s): N28.89 - Other specified disorders of kidney and ureter Status: Acute Assessment and Plan: Known renal mass, patient does not wish to investigate further (9) Right lower lobe lung mass: Code(s): R91.8 - Other nonspecific abnormal finding of lung field Status: Acute Assessment and Plan: Recent lung biopsy during last admission 12/2023 did not show malignancy Plan Feeding: NPO Analgesia: Tylenol Thromboembolic prophylaxis: SCD Ulcer prophylaxis: PPI Glycemic control: Q 6 insulin, Q6 blood glucose, hypoglycemic protocol Bowel regimen: na Lines: PIV Antibiotics: na Disposition: Return home with spouse at discharge with outpatient [facility]. Subjective Date/time seen: 02/15/24 07:04 Interval history: This is an very pleasant 88-year-old female with history of stroke in December 2023, hypertension, diastolic dysfunction, chronic kidney disease, type 2 diabetes mellitus, hypothyroidism, gastroesophageal reflux disease, known 1.5 cm right renal lesion, and a right lower lobe mass suspicious for bronchogenic carcinoma (CT-guided biopsies in October and December 2023 did not show malignancy but
--- NOTE | 2024-02-15 07:42 | WPDANESPN ---
Anes - Prog Note Post-Op Date/Time: 02/15/24 07:42 Cardiovascular status: normal Respiratory status: normal Airway patency: baseline Mental status: baseline Post-Op hydration status: normal Vital Signs: Last Vital Signs Temp 36.7 C 02/15/24 05:03 Pulse 62 02/15/24 05:03 Resp 18 02/15/24 05:03 BP 123/30 L 02/15/24 05:03 Pulse Ox 97 02/15/24 05:03 O2 Del Method Room Air 02/14/24 20:00 Pain Score (VAS): 09/10 I/O: Intake & Output 02/14/24 02/14/24 02/15/24 15:59 23:59 07:59 Intake Total 786 360 2453 Output Total 400 Balance -10 320 1000 Laboratory Tests 02/15/24 04:41 02/15/24 04:41 02/14/24 02/14/24 02/14/24 07:34 07:43 09:28 WBC 9.5 RBC 3.38 L Hgb 9.5 L Hct 29.8 L MCV 88.2 MCH 28.1 MCHC 31.9 L RDW 14.3 Plt Count 244 MPV 11.5 H Immature Gran % (Auto) Neut % (Auto) Lymph % (Auto) [place] % (Auto) Eos % (Auto) Baso % (Auto) Lymph # (Auto) [place] # (Auto) Eos # (Auto) Baso # (Auto) Abs Immat Gran (auto) Absolute Neuts (auto) Absolute Nucleated RBC Nucleated RBC % Sodium 140 Potassium 3.6 Chloride 107 Carbon Dioxide 25 Anion Gap 8 BUN 30 H Creatinine 1.20 H Estim Creat Clear Calc 22 Estimated GFR 43 L Glucose 114 H POC Capillary Glucose 116 H 140 H Calcium 9.3 Magnesium 2.6 H Total Bilirubin AST ALT Alkaline Phosphatase Total Protein Albumin 02/14/24 02/14/24 02/14/24 11:33 14:47 16:42 WBC RBC Hgb 8.7 L Hct 27.0 L MCV MCH MCHC RDW Plt Count MPV Immature Gran % (Auto) Neut % (Auto) Lymph % (Auto) [place] % (Auto) Eos % (Auto) Baso % (Auto) Lymph # (Auto) [place] # (Auto) Eos # (Auto) Baso # (Auto) Abs Immat Gran (auto) Absolute Neuts (auto) Absolute Nucleated RBC Nucleated RBC % Sodium Potassium Chloride Carbon Dioxide Anion Gap BUN Creatinine Estim Creat Clear Calc Estimated GFR Glucose POC Capillary Glucose 138 H 103 Calcium Magnesium Total Bilirubin AST ALT Alkaline Phosphatase Total Protein Albumin 02/14/24 02/15/24 23:06 04:41 WBC 7.8 RBC 2.91 L Hgb 8.2 L Hct 26.2 L MCV 90.0 MCH 28.2 MCHC 31.3 L RDW 14.1 Plt Count 207 MPV 12.0 H Immature Gran % (Auto) 0.3 Neut % (Auto) 64.3 Lymph % (Auto) 23.4 [place] % (Auto) 8.6 H Eos % (Auto) 2.4 Baso % (Auto) 1.0 Lymph # (Auto) 1.83 [place] # (Auto) 0.7 H Eos # (Auto) 0.2 Baso # (Auto) 0.1 Abs Immat Gran (auto) 0.02 Absolute Neuts (auto) 5.0 Absolute Nucleated RBC 0.000 Nucleated RBC % 0.0 Sodium 140 Potassium 3.4 Chloride 109 H Carbon Dioxide 28 Anion Gap 3 L BUN 28 H Creatinine 1.20 H Estim Creat Clear Calc 22 Estimated GFR 43 L Glucose 107 POC Capillary Glucose 100 Calcium 8.6 Magnesium Total Bilirubin 0.2 AST 22 ALT 17 Alkaline Phosphatase 35 L Total Protein 6.0 L Albumin 3.4 L Post-procedural complaints: none Patient Feedback: Patient satisfied with anesthetic care.
[2024-02-15 08:15] LABS: Glucose Point of Care 117 mg/dl (65-105)
[2024-02-15] MEDS: GABAPENTIN 100 MG CAPSULE PO ×3 (08:43→17:04)
[2024-02-15] MEDS: FENOFIBRATE 160 MG TABLET PO (08:43)
[2024-02-15] MEDS: METOPROLOL SUCCINATE EXT REL 50 MG TABCR PO ×2 (08:43→20:14)
[2024-02-15] MEDS: PANTOPRAZOLE 40 MG TABLET PO (08:44)
--- NOTE | 2024-02-15 11:59 | WPDGIPROGNO ---
Progress Note: A&P Assessment and Plan (1) Acute GI bleeding: Code(s): K92.2 - Gastrointestinal hemorrhage, unspecified Status: Acute Assessment and Plan: no more bleeding source was diverticula she is feeling better ok to go home but instructed to come back if she starts bleeding again (2) Diverticular hemorrhage: Code(s): K57.31 - Diverticulosis of large intestine without perforation or abscess with bleeding Status: Acute (3) RB (rectal bleeding): Code(s): K62.5 - Hemorrhage of anus and rectum Status: Acute (4) Near syncope: Code(s): R55 - Syncope and collapse Status: Acute Assessment and Plan: on presentation she is doing much better now (5) Type 2 diabetes mellitus: Code(s): E11.9 - Type 2 diabetes mellitus without complications Status: Acute (6) Acute blood loss anemia: Code(s): D62 - Acute posthemorrhagic anemia Status: Acute Subjective Date/time seen: 02/15/24 11:59 Interval history: colonoscopy yesterday with dried blood, multiple diverticula but no more active bleeding- that was cause of LGIB no more bleeding since procedure, she is feeling better and would like to go home if possible Review of Systems Review of Systems: All systems reviewed & are unremarkable except as noted in HPI and below Exam Const: General: comfortable and no acute distress HENMT: Face/Nose/Sinus: Normal nares present Eyes: Sclera: sclerae normal Neck: Neck: supple Resp: Auscultation: clear to auscultation bilaterally Cardio: Rate: regular rate Rhythm: regular rhythm GI: Inspection: non-distended GI Palp: Yes Soft to palpation and No Tenderness to palpation present (GI) Auscultation: normal bowel sounds Skin: General skin exam: no rashes or lesions noted Neuro: Speech: normal speech Motor exam (neuro): 5/5 motor strength present throughout Extrem: General: normal to inspection Psych: Mental Status: mental status grossly normal Objective Data Vital Signs Vital Signs: Vital Signs - 24 hr 02/14/24 12:01 02/14/24 14:05 02/14/24 16:03 Temperature 97.8 F Pulse Rate 74 81 71 Respiratory Rate 17 Blood Pressure 116/49 L Pulse Oximetry 95 Oxygen Delivery 02/14/24 20:00 02/14/24 20:53 02/14/24 20:55 Temperature 98.1 F 98.1 F 98.2 F Pulse Rate 74 78 83 Respiratory Rate 18 18 18 Blood Pressure 114/76 145/54 H 170/50 H Pulse Oximetry 95 95 96 Oxygen Delivery 02/14/24 21:45 02/14/24 20:00 02/14/24 20:00 Temperature 98.3 F Pulse Rate 71 71 79 Respiratory Rate 18 18 Blood Pressure 123/52 L Pulse Oximetry 95 95 Oxygen Delivery Room Air 02/15/24 04:00 02/15/24 05:03 02/15/24 08:00 Temperature 98.1 F Pulse Rate 62 62 66 Respiratory Rate 18 Blood Pressure 123/30 L Pulse Oximetry 97 Oxygen Delivery 02/15/24 08:43 02/15/24 08:44 Temperature Pulse Rate 64 64 Respiratory Rate 18 Blood Pressure Pulse Oximetry 97 Oxygen Delivery Room Air Intake/Output Intake/Output: Intake & Output 02/12/24 02/13/24 02/14/24 02/15/24 23:59 23:59 23:59 23:59 Intake Total 918 567 2015 Output Total 400 300 Balance 709 866 7992 Meds/Results Medications: Active Medications Generic Name Dose Route Start Last Admin Trade Name Freq PRN Reason Stop Dose Admin Acetaminophen 650 mg 02/13/24 14:43 Acetaminophen 325 Mg Tablet PO Q6H PRN Mild Pain (1-3) or Fever Dextrose 12.5 gm 02/13/24 22:18 Dextrose 50% 25 Gm/50 Ml Syringe IV PUSH PRN PRN Hypoglycemia Protocol Fenofibrate 160 mg 02/14/24 09:00 02/15/24 08:43 Fenofibrate 160 Mg Tablet PO 160 mg DAILY VIKAS Administration Gabapentin 100 mg 02/13/24 22:30 02/15/24 08:43 Gabapentin 100 Mg Capsule PO 100 mg TID VIKAS Administration Glucagon 1 mg 02/13/24 22:18 Glucagon For Inj 1 Mg Vial IM PRN PRN Hypoglycemia Protocol Glucose 15 g
[2024-02-15 12:01] LABS: Glucose Point of Care 118 mg/dl (65-105)
[2024-02-15 17:03] LABS: Glucose Point of Care 132 mg/dl (65-105)
[2024-02-15 20:23] LABS: Glucose Point of Care 138 mg/dl (65-105)
[2024-02-16 00:55] VITALS: BP 127/49; BP 142/50; PULSE 69; PULSE 74; RESP 18; TEMP 36.8; O2SAT 97; O2SAT 99
[2024-02-16 00:56] VITALS: BP 156/49; PULSE 79; RESP 18; TEMP 36.8; O2SAT 100
[2024-02-16 04:04] VITALS: BP 129/69; PULSE 74; RESP 18; TEMP 36.6; O2SAT 98
[2024-02-16 05:15] LABS: Basophils Absolute Auto 0.1 K/mm3 (0.0-0.1); Eosinophils Absolute Auto 0.3 K/mm3 (0-0.3); Eosinophils Percent Auto 3.6 % (0-4.4); Hematocrit 24.4 % (37.0-47.0); Hemoglobin 7.8 g/dL (12.0-15.0); Immature Granulocyte Absolute 0.03 K/mm3 (0.00-0.031); Immature Granulocyte Percent A 0.4 % (0-0.5); Lymphocytes Absolute Auto 1.88 K/mm3 (0.9-3.2); Lymphocytes Percent Auto 23.2 % (18.3-44.2); Mean Corpuscular Hemoglobin 28.6 pg (26-34); Mean Corpuscular Volume 89.4 fl (80-100); Mean Platelet Volume 11.8 fl (7.4-10.4); Monocytes Absolute Auto 0.7 K/mm3 (0.1-0.6); Monocytes Percent Auto 8.1 % (2.6-8.5); Neutrophils Absolute Auto 5.2 K/mm3 (1.3-6.7); Neutrophils Percent Auto 63.7 % (45.5-73.1); Platelet Count Result 203 k/mm3 (150-375); Red Blood Count 2.73 M/mm3 (4.2-5.4); Red Cell Distribution Width 14.1 % (11.5-14.5); White Blood Count 8.1 K/mm3 (4.5-10.0)
[2024-02-16 05:27] LABS: Alanine Aminotransferase 16 U/L (6-35); Albumin Level 3.5 g/dL (3.5-5.1); Alkaline Phosphatase 40 U/L (38-126); Anion Gap 6 mmol/L (4-12); Aspartate Amino Transferase 21 U/L (14-36); Bilirubin,Total 0.2 mg/dL (0.2-1.3); Blood Urea Nitrogen 21 mg/dL (7-17); Calcium 9.1 mg/dL (8.4-10.2); Carbon Dioxide 25 mmol/L (22-30); Chloride 109 mmol/L (98-107); Estimated CRCL calculation 26 ml/min; Estimated Glomerular Filt Rate 53; Glucose 104 mg/dL (65-110); Potassium 3.4 mmol/L (3.4-5.0); Sodium 140 mmol/L (137-145)
[2024-02-16] MEDS: LEVOTHYROXINE SODIUM 50 MCG TABLET BY MOUTH (06:26)
[2024-02-16 08:24] LABS: Iron 41 ug/dL (37-170)
[2024-02-16 08:27] LABS: Glucose Point of Care 118 mg/dl (65-105)
[2024-02-16 08:34] LABS: Percent Iron Saturation 9 % (20-50)
[2024-02-16] MEDS: IRON SUCROSE COMPLEX 300 MG in SODIUM CHLORIDE 0.9% IV 250 ML 177 MG IVPB (08:39)
[2024-02-16 08:40] VITALS: PULSE 72; RESP 18; O2SAT 98
[2024-02-16] MEDS: METOPROLOL SUCCINATE EXT REL 50 MG TABCR PO (08:40)
[2024-02-16] MEDS: PANTOPRAZOLE 40 MG TABLET PO (08:40)
[2024-02-16] MEDS: GABAPENTIN 100 MG CAPSULE PO ×2 (08:40→12:24)
[2024-02-16] MEDS: FENOFIBRATE 160 MG TABLET PO (08:41)
[2024-02-16 11:52] LABS: Glucose Point of Care 107 mg/dl (65-105)
[2024-02-16 11:52] LABS: Hematocrit 25.2 % (37.0-47.0); Hemoglobin 8.1 g/dL (12.0-15.0)
--- NOTE | 2024-02-16 12:07 | PM.DS ---
DS: Admitting Diagnosis Discharge Date 02/15 Admitting Diagnosis Bleeding per rectum DS: Discharge Diagnosis Discharge Diagnosis (1) GI bleed: Code(s): K92.2 - Gastrointestinal hemorrhage, unspecified Status: Acute Assessment and Plan: Reports of bright red blood per rectum -Hemoglobin on admission was 13.1 g/dL, now 10.3 this morning -Trend H/H q 6 hours. Transfuse less than 7 g/dL -Will go for a colonoscopy today 02/13 -CT abdomen and pelvis shows diverticulosis but no diverticulitis or abscess -Blood pressures have been stable. Systolic running 130-160's. She did have an orthostatic episode overnight when standing. -Fall precautions and ambulate with assistance -Holding Plavix, ASA during bleeding episode -GI was consulted and recs appreciated 02/14: Hemoglobin 8.2 g/dL. I have discussed with the patient the possibility of need 1 unit of pRBC should her H/H continue to drop. Anticipate it plateauing soon. 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 HS. Low-fiber diet (6) Chronic kidney disease: Code(s): N18.9 - Chronic kidney disease, unspecified Status: Acute Assessment and Plan: Cr 1.0, BUN 33, GFR 53 -avoid nephrotoxic agents -renally dose medications -monitor BMP (7) Hypertension: Code(s): I10 - Essential (primary) hypertension Status: Acute Assessment and Plan: On amlodipine 5 mg, Indapamide 2.5 mg, irbesartan 300 mg, and metoprolol succinate 50 mg -Metoprolol restarted -holding other anti-hypertensive, diuretic in setting of bleeding with orthostasis. -Blood pressures at rest are stable 02/14: Blood pressure are improving. Stopping IVF today. Will see how her blood pressures do. Likely restart antihypertensives tomorrow. (8) Right renal mass: Code(s): N28.89 - Other specified disorders of kidney and ureter Status: Acute Assessment and Plan: Known renal mass, patient does not wish to investigate further (9) Right lower lobe lung mass: Code(s): R91.8 - Other nonspecific abnormal finding of lung field Status: Acute Assessment and Plan: Recent lung biopsy during last admission 12/2023 did not show malignancy Plan Feeding: NPO Analgesia: Tylenol Thromboembolic prophylaxis: SCD Ulcer prophylaxis: PPI Glycemic control: Q 6 insulin, Q6 blood glucose, hypoglycemic protocol Bowel regimen: na Lines: PIV Antibiotics: na Disposition: Return home with spouse at discharge with outpatient [facility]. DS: Summary Hospital Course Hospital Course: This is an very pleasant 88-year-old female with history of stroke in December 2023, hypertension, diastolic dysfunction, chronic kidney disease, type 2 diabetes mellitus, hypothyroidism, gastroesophageal reflux disease, known 1.5 cm right renal lesion, and a right lower lobe mass suspicious for bronchogenic carci
== END 2024-02-16 12:45 | disposition home or self-care (01) | DRG 378 ==
LOC: ANHED 13:35 → ANH2MED 13:47
PROVIDERS: Emergency Medicine; Internal Medicine Gastroenterology; Physician Assistant; Admitting Provider Internal Medicine; Emergency Provider Physician Assistant; PCP Family Medicine; Visit Provider Nurse Practitioner Acute Care
PROC: 0DJD8ZZ Inspection of Lower Intestinal Tract, Via Natural or Artificial Opening Endoscopic (ICD-10-PCS; CPT 45378; principal; 2024-02-14 08:00)
DX: K57.31 Diverticulosis of large intestine without perforation or abscess with bleeding (principal); I69.354 Hemiplegia and hemiparesis following cerebral infarction affecting left non-dominant side; I12.9 Hypertensive chronic kidney disease with stage 1 through stage 4 chronic kidney disease, or unspecified chronic kidney disease; N18.9 Chronic kidney disease, unspecified; J44.9 Chronic obstructive pulmonary disease, unspecified; K21.9 Gastro-esophageal reflux disease without esophagitis; E11.22 Type 2 diabetes mellitus with diabetic chronic kidney disease; E78.5 Hyperlipidemia, unspecified; E03.9 Hypothyroidism, unspecified; M10.9 Gout, unspecified; N28.89 Other specified disorders of kidney and ureter; R91.8 Other nonspecific abnormal finding of lung field; R55 Syncope and collapse; R09.89 Other specified symptoms and signs involving the circulatory and respiratory systems; Z79.82 Long term (current) use of aspirin; Z79.02 Long term (current) use of antithrombotics/antiplatelets; Z87.442 Personal history of urinary calculi; Z87.891 Personal history of nicotine dependence
CPT/HCPCS: 36415; 74177; 80048; 80053; 82948; 83540; 83550; 83735; 85014; 85018; 85025; 85027; 85610; 85730; 86850; 86900; 86901; 96361; 96374; 97161; 99285; A9270; G0378; J1756; J2001; J2371; J2405; J2704; J7030; J7050; J7120; Q9967

== ENCOUNTER 2024-02-17 03:09 | Inpatient (IN) | payer MEDICARE, BC, SELFPAY ==
[2024-02-17] VITALS (16 sets, daily range): BP systolic 122–156; BP diastolic 41–90; PULSE 61–70; RESP 14–20; TEMP 36.4–37.1; O2SAT 95–100; BMI 25.1
--- NOTE | ~2024-02-17 | NM_ITS ---
EXAMINATION: NM GI bleeding DATE: 02/17/2024 13:52 INDICATION: Gastrointestinal hemorrhage. TECHNIQUE: 23.4 mCi Tc 99m in vitro labeled red cells was administered intravenously. Scintigraphic images of the abdomen were obtained for one hour. COMPARISON: CT abdomen and pelvis 02/13/2024 FINDINGS: No pattern of abnormal activity is seen in the abdomen or pelvis to suggest gastrointestina l hemorrhage. IMPRESSION: 1. No evidence of active gastrointestinal hemorrhage. Reviewed, dictated and finalized at location E.
--- NOTE | 2024-02-17 03:22 | ECG_ITS ---
Test Date: 2024-02-17 03:15:16 Measurements Intervals [place] Rate: 69 P: 71 WV: 147 QRS: -36 QRSD: 134 T: -6 QT: 437 QTc: 471 Interpretive Statements SINUS RHYTHM MARKED LEFT AXIS DEVIATION [QRS AXIS < -30] RIGHT BUNDLE BRANCH BLOCK [120+ ms QRS DURATION, UPRIGHT V1, 40+ ms S IN I/aVL/V4/V5/V6] SEPTAL MYOCARDIAL INFARCTION , OF INDETERMINATE AGE [40+ ms Q WAVE IN V1/V2] No previous ECG available for comparison Electronically Signed On 02-17-2024 12:08:58 CDT by Diaz Christensen M.D.
[2024-02-17] MEDS: PANTOPRAZOLE SODIUM IV 40 MG VIAL IV PUSH ×3 (03:26→21:07)
[2024-02-17] MEDS: SODIUM CHLORIDE 0.9% IV 1,000 ML 999 ML IV CONT (03:26)
[2024-02-17] MEDS: ONDANSETRON INJ 4 MG/2 ML VIAL IV PUSH (03:26)
[2024-02-17 03:28] LABS: Basophils Absolute Auto 0.1 K/mm3 (0.0-0.1); Basophils Percent Auto 0.9 % (0.2-1.2); Eosinophils Absolute Auto 0.2 K/mm3 (0-0.3); Eosinophils Percent Auto 2.3 % (0-4.4); Hematocrit 23.1 % (37.0-47.0); Hemoglobin 7.4 g/dL (12.0-15.0); Immature Granulocyte Absolute 0.13 K/mm3 (0.00-0.031); Immature Granulocyte Percent A 1.3 % (0-0.5); Lymphocytes Absolute Auto 1.67 K/mm3 (0.9-3.2); Lymphocytes Percent Auto 17.3 % (18.3-44.2); Mean Corpuscular Hemoglobin 28.6 pg (26-34); Mean Corpuscular Volume 89.2 fl (80-100); Mean Platelet Volume 11.7 fl (7.4-10.4); Monocytes Absolute Auto 0.8 K/mm3 (0.1-0.6); Monocytes Percent Auto 8.3 % (2.6-8.5); Neutrophils Absolute Auto 6.8 K/mm3 (1.3-6.7); Neutrophils Percent Auto 69.9 % (45.5-73.1); Nucleated Red Blood Cells Perc 0.3 % (0.0-0.2); Platelet Count Result 233 k/mm3 (150-375); Red Blood Count 2.59 M/mm3 (4.2-5.4); Red Cell Distribution Width 14.1 % (11.5-14.5); White Blood Count 9.7 K/mm3 (4.5-10.0)
[2024-02-17 03:37] LABS: Prothrombin Time 13.9 Seconds (11.1-14.7)
[2024-02-17 03:38] LABS: Alanine Aminotransferase 17 U/L (6-35); Albumin Level 3.7 g/dL (3.5-5.1); Alkaline Phosphatase 41 U/L (38-126); Anion Gap 9 mmol/L (4-12); Aspartate Amino Transferase 22 U/L (14-36); Bilirubin,Total 0.2 mg/dL (0.2-1.3); Blood Urea Nitrogen 23 mg/dL (7-17); Calcium 9.1 mg/dL (8.4-10.2); Carbon Dioxide 24 mmol/L (22-30); Chloride 109 mmol/L (98-107); Estimated Glomerular Filt Rate 53; Glucose 174 mg/dL (65-110); Lipase 266 U/L (23-300); Potassium 3.5 mmol/L (3.4-5.0); Sodium 142 mmol/L (137-145)
[2024-02-17 03:39] LABS: Partial Thromboplastin Time 20.7 Seconds (22.3-36.8)
--- NOTE | 2024-02-17 04:03 | ED.GENADULT ---
HPI - General Adult General Chief complaint: GI Bleed Stated complaint: GI BLEED, LIGHTHEADED Time Seen by Provider: 02/17/24 03:12 History of Present Illness HPI narrative: patient 88-year-old female who presents emergency department chief complaint of rectal bleeding. The patient reports she was discharged from the hospital about 12 hours ago after she had had a lower GI bleed secondary to diverticulitis patient reports that she started having bleeding again this evening and felt very lightheaded. Patient states worse whenever she stands up. The patient reports she was told to come back if she started having bleeding again. Related Data Home Medications Medication Instructions Recorded Confirmed aspirin 81 mg tablet,delayed 81 mg PO DAILY 04/22/22 02/13/24 release (Adult Low Dose Aspirin) meclizine 25 mg tablet 25 mg PO TID PRN Dizziness Or 02/13/24 02/13/24 Vertigo Allergies Allergy/AdvReac Type Severity Reaction Status Date / Time cat dander Allergy Unknown Sneezing Verified 02/17/24 03:21 Sulfa (Sulfonamide Allergy Unknown Swelling Verified 02/17/24 03:21 Antibiotics) atorvastatin AdvReac Muscle Pain Verified 02/17/24 03:21 Review of Systems Review of Systems: A 10 system review of systems was completed on the patient and is negative except for what is stated in the HPI. Nursing and ancillary documentation was reviewed. [facility]LY [facility] Past Medical History Medical History Actinic keratosis Bilateral carotid bruits Carotid Doppler ultrasounds in December 2023 showed less than 50% stenosis in bilateral internal carotid arteries. 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 She has declined attempts that another biopsy. Right renal mass 1.5 cm right renal lesion Type 2 diabetes mellitus Surgical History Surgical History History of bladder suspension procedure (2002) History of breast biopsy History of tonsillectomy and adenoidectomy History of total hysterectomy with bilateral salpingo-oophorectomy (BSO) (1978) Laryngeal cyst Status post cystectomy Family History Family History Mother Family history of cardiovascular disease Acute myocardial infarction Hypertension Family history of elevated blood lipids Sibling Hypertension Social History Social History Social History: Surrogate medical decision maker: Rafael Lund, spouse. Code status: Full code. Smoking packs per day: 1.5 Smoking cigarettes per day: 30.0 Years smoked: 30 Smoking pack-years: 45.00 Smoking status: Former smoker Alcohol intake: never Substance use: never Substance use type: does not use Do You Feel Safe in your Home?: Yes Lack of Transportation: YES Lack of Food: Never True Current Housing: I Have Housing Concerned About Future Housing: No Difficulty Paying Gas/Electric Bills: No Difficulty Paying for Meds: No Currently Unemployed: No Education: High School Diploma/GED Difficulty w/ Childcare or Family Care: No Additional living arrangements comments: . She remarried about 6 years ago and lives with her Rafael in [place]. Spiritual care concerns: No Exam Narrative: GENERAL: Well-appearing, well-nourished, and in no acute distress. HEAD: Normocephalic, atraumatic. EYES: PERRLA and EOMI. ENT: Nares clear, no rhinorrh
--- NOTE | 2024-02-17 04:50 | ADMGEN ---
This patient, Shellie Lund, was admitted to 2 Medical Room 240-01. Patient/family oriented to hospital policies and general routines including ID bracelet, bed and alarms, visiting hours, pain management, procedures, bathroom and other care routines, personal items, smoking policy, room service/diet, and visiting hours. Information on how to activate the Rapid Response Team has been discussed. Patient/Family are encouraged to report perceived risks to care and to ask questions if they do not understand what they are told or what they should do.
--- NOTE | 2024-02-17 05:12 | PM.IMHP ---
H&P: HPI History of Present Illness Date/Time: 02/17/24 05:12 Chief Complaint: Bloody bowel movement Narrative: 88 yo female, with pMH of CVA, DM2, CKD, HTN, right renal mass who was recently discharged from the hospital yesterday after she was managed for diverticular bleed, she came back today due to bloody bowel movement. She noted she had 2 episodes. otherwise denies any syncope, abd pain, vomiting, chest pain or lightheadedness. ER eval notable for vital signs T 97.8, OH 63, RR 18, BP 155/62, O2 sat 99%, labs notable for Hb 7.4, 8.[address] AP showed showed extensive diverticulosis stable right 1.5cm renal lesion. Patient admitted for further eval adn care Review of Systems Review of Systems: all other systems were reviewed and negative except as noted in the HPI above [facility] Past Medical History Medical History Actinic keratosis Bilateral carotid bruits Carotid Doppler ultrasounds in December 2023 showed less than 50% stenosis in bilateral internal carotid arteries. 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 She has declined attempts that another biopsy. Right renal mass 1.5 cm right renal lesion Type 2 diabetes mellitus Surgical History Surgical History History of bladder suspension procedure (2002) History of breast biopsy History of tonsillectomy and adenoidectomy History of total hysterectomy with bilateral salpingo-oophorectomy (BSO) (1978) Laryngeal cyst Status post cystectomy Family History Family History Mother Family history of cardiovascular disease Acute myocardial infarction Hypertension Family history of elevated blood lipids Sibling Hypertension Social History Social History Social History: Surrogate medical decision maker: Rafael Lund, spouse. Code status: Full code. Smoking packs per day: 1.5 Smoking cigarettes per day: 30.0 Years smoked: 30 Smoking pack-years: 45.00 Smoking status: Former smoker Alcohol intake: never Substance use: never Substance use type: does not use Do You Feel Safe in your Home?: Yes Lack of Transportation: No Lack of Food: Never True Current Housing: I Have Housing Concerned About Future Housing: No Difficulty Paying Gas/Electric Bills: No Difficulty Paying for Meds: No Currently Unemployed: No Education: Grade School Difficulty w/ Childcare or Family Care: No Additional living arrangements comments: . She remarried about 6 years ago and lives with her Rafael in [place]. Spiritual care concerns: No Meds Home Medications and Allergies Home Medications Medication Instructions Recorded Confirmed Type aspirin 81 mg tablet,delayed 81 mg PO DAILY 04/22/22 02/17/24 History release (Adult Low Dose Aspirin) gabapentin 100 mg capsule 100 mg PO TID #90 caps 08/15/23 02/17/24 Rx indapamide 2.5 mg tablet 2.5 mg PO DAILY #90 tabs 09/02/23 02/17/24 Rx lansoprazole 30 mg capsule,delayed 30 mg PO DAILY #90 caps 11/20/23 02/17/24 Rx release irbesartan 300 mg tablet 300 mg PO DAILY #90 tabs 12/26/23 02/17/24 Rx indomethacin 50 mg capsule 50 mg PO TID PRN gout 90 days #90 12/31/23 02/17/24 Rx caps fenofibrate 160 mg tablet 160 mg PO DAILY #90 tabs 01/12/24 02/17/24 Rx amlodipine 5 mg tablet 5 mg PO DAILY #90 tabs 02/06/24 02/17/24 Rx metop
[2024-02-17 05:57] LABS: Hematocrit 21.4 % (37.0-47.0)
[2024-02-17 06:06] LABS: Hemoglobin 6.6 g/dL (12.0-15.0)
[2024-02-17 06:27] LABS: Iron 427 ug/dL (37-170)
[2024-02-17] MEDS: SODIUM CHLORIDE 0.9% IV 1,000 ML 75 ML IV CONT (06:27)
[2024-02-17 06:37] LABS: Percent Iron Saturation 101 % (20-50)
--- NOTE | 2024-02-17 07:35 | P.PNIM_ITS ---
Progress Note: A&P Assessment and Plan (1) Right renal mass: Code(s): N28.89 - Other specified disorders of kidney and ureter Status: Acute (2) Acute GI bleeding: Code(s): K92.2 - Gastrointestinal hemorrhage, unspecified Status: Acute (3) Hypertension: Code(s): I10 - Essential (primary) hypertension Status: Acute (4) Chronic kidney disease: Code(s): N18.9 - Chronic kidney disease, unspecified Status: Acute (5) Type 2 diabetes mellitus: Code(s): E11.9 - Type 2 diabetes mellitus without complications Status: Acute Plan GI bleed Patient was discharged yesterday after she was managed for diverticular bleed Likely having another diverticular bleed PPI, IVF GI consulted 02/16: * Patient was just scoped by GI yesterday and findings were signs of recent diverticular bleed but no active bleeding. Dr Richardson had recommended that if patient had recurrent bleeding to consult surgery and may need transfer to tertiary care for IR intervention . * GI bleed nuclear medicine study has been ordered. * Hemoglobin 6.6 g/dL this morning; transfusion recommended less than 7 g/dL * Transfuse 2 unit pRBC * Iron studies are elevated but patient just received IV Venofer yesterday prior to discharge * Protonix IV b.i.d. * Serial H/H * Maintenance fluids at 75 mL an hour after blood transfusion. * Clear liquid diet Anemia HB 7.4 Iron panel and ferritin Monitor H and H and transfuse with threshold of 7 for HB 02/16: * see above DM2 SSI with accu cheks, adjust with clinical course 02/16: * Blood glucose reviewed 174 * Low dose SSI, hypoglycemia protocol, AC/HS * Clear liquid diet HTN titrate home MEDS with clinical course 02/16: * Blood pressures reviewed and are stable * 122/46, HR 63 Known renal mass per chart review patient does not want to further investigate mass Lung mass S/p biopsy on 12/2023 no malignancy DVT prophylaxis on SCDs, no AC due to GI bleed Full code Subjective Date/time seen: 02/17/24 07:35 Interval history: 02/16: Patient is doing well today. She was readmitted last night after waking at home with recurrent GI bleeding and feelings of dizziness. Hemoglobin on admission was 7.4. This morning hemoglobin dropped to 6.6 she received 1 unit of PRBC with a repeat H&H of 7.9. She is set to receive a 2nd unit of blood now. Her dizziness has resolved. Her blood pressures are stable. She is set to get a nuc med GI bleeding scan today. May need transfer to tertiary care center. Patient is were this and is agreeable to transfer should it be required. Review of Systems Review of Systems: all other systems were reviewed and negative except as noted in the HPI above Exam Narrative: General: well appearing, appears stated age. HEENT: normocep
--- NOTE | 2024-02-17 07:35 | PM.IMPN ---
Progress Note: A&P Assessment and Plan (1) Right renal mass: Code(s): N28.89 - Other specified disorders of kidney and ureter Status: Acute (2) Acute GI bleeding: Code(s): K92.2 - Gastrointestinal hemorrhage, unspecified Status: Acute (3) Hypertension: Code(s): I10 - Essential (primary) hypertension Status: Acute (4) Chronic kidney disease: Code(s): N18.9 - Chronic kidney disease, unspecified Status: Acute (5) Type 2 diabetes mellitus: Code(s): E11.9 - Type 2 diabetes mellitus without complications Status: Acute Plan GI bleed Patient was discharged yesterday after she was managed for diverticular bleed Likely having another diverticular bleed PPI, IVF GI consulted 02/16: Patient was just scoped by GI yesterday and findings were signs of recent diverticular bleed but no active bleeding. Dr Richardson had recommended that if patient had recurrent bleeding to consult surgery and may need transfer to tertiary care for IR intervention . GI bleed nuclear medicine study has been ordered. Hemoglobin 6.6 g/dL this morning; transfusion recommended less than 7 g/dL Transfuse 2 unit pRBC Iron studies are elevated but patient just received IV Venofer yesterday prior to discharge Protonix IV b.i.d. Serial H/H Maintenance fluids at 75 mL an hour after blood transfusion. Clear liquid diet Anemia HB 7.4 Iron panel and ferritin Monitor H and H and transfuse with threshold of 7 for HB 02/16: see above DM2 SSI with accu cheks, adjust with clinical course 02/16: Blood glucose reviewed 174 Low dose SSI, hypoglycemia protocol, AC/HS Clear liquid diet HTN titrate home MEDS with clinical course 02/16: Blood pressures reviewed and are stable 122/46, HR 63 Known renal mass per chart review patient does not want to further investigate mass Lung mass S/p biopsy on 12/2023 no malignancy DVT prophylaxis on SCDs, no AC due to GI bleed Full code Subjective Date/time seen: 02/17/24 07:35 Interval history: 02/16: Patient is doing well today. She was readmitted last night after waking at home with recurrent GI bleeding and feelings of dizziness. Hemoglobin on admission was 7.4. This morning hemoglobin dropped to 6.6 she received 1 unit of PRBC with a repeat H&H of 7.9. She is set to receive a 2nd unit of blood now. Her dizziness has resolved. Her blood pressures are stable. She is set to get a nuc med GI bleeding scan today. May need transfer to tertiary care center. Patient is were this and is agreeable to transfer should it be required. Review of Systems Review of Systems: all other systems were reviewed and negative except as noted in the HPI above Exam Narrative: General: well appearing, appears stated age. HEENT: normocephalic, atraumatic. Mucous membranes moist. EOMI, PERRLA, bilateral sclera anicteric, no conjunctival injection. Neck supple without JVD, lymphadenopathy, or bruit. Left facial droop. Respiratory: clear to auscultation bilaterally. No rales/rhonic/wheezes. Cardiovascular: Regular rate and rhythm, normal S1-S2 upon auscultation. No murmurs, rubs, or clicks. PMI is nondisplaced, capillary refill less than 3 second. Abdomen: Soft, round, no pulsatile masses, nondistended and nontender. No rebound, no guarding. No CVA tenderness, no hepatosplenomegaly. Bowel sounds present to all four quadrants. No high pitch or tinkling sounds, resonant to percussion. Extremities: No cyanosis, clubbing, or edema present. Pulses are palpable 2/2. Active ROM to all four extremities. Slight weakness noted to left upper extremity. Neuro: Alert and orientated x 4. PERRLA. Cranial nerves 2-12 intact without focal deficit. Skin: Warm, dry, and intact, without rash, erythema, or lesion. Lines: PIV Incisions: Psych: pleasant, cooperative, normal speech, normal affect, no hallucinations, + d
[2024-02-17 07:54] LABS: Glucose Point of Care 134 mg/dl (65-105)
--- NOTE | 2024-02-17 08:21 | P.CONGI_ITS ---
I, Angelito Mckeon MD, have provided a substantive portion of the care of this patient and discussed the patient with my Nurse Practitioner. I have reviewed any new relevant radiographic and laboratory results including medications. I agree with her documentation as noted below.?I personally performed the medical decision making and much of the history and exam for this encounter. briefly, she is well known to us with recurrent diverticular bleed in fact recent hospitalization and had colonoscopy 3 days ago, found dried hematin with multiple diverticula without any more active bleeding. She did ok and went home but again with hematochezia, hgb down to 6 and received blood transfusion, now doing better, no more report of LGBI today, GIB scan negative. Hopefully bleeding stopped. Recommend to consult surgery and if starts bleeding again then transfer to tertiary hospital for consideration of IR consult for possible embolization. Monitor for more signs of bleeding and keep hgb>7 Assessment and Plan Assessment and plan (1) Acute blood loss anemia: Code(s): D62 - Acute posthemorrhagic anemia Status: Acute (2) GI bleeding: Qualifiers: GI bleed type/associated pathology: anorectal hemorrhage Qualified Code(s): K62.5 - Hemorrhage of anus and rectum Code(s): K92.2 - Gastrointestinal hemorrhage, unspecified Status: Acute Plan 1) Lower GI bleed/ABLA: Patient with long standing Hx of GI bleeding. She has been admitted 3 times since October for bleeding. Colonoscopy 02/14/2024 showed blood throughout the colon and bleeding source was thought to be diverticular but no specific source could be identified. She was just discharged yesterday and returned today with complaints of recurrent rectal bleeding last night x 3 BM's. No BM or rectal bleeding since admssion. Patient with drop in H/H since February 12 with Hgb 11-->6.6 and Hct 35-->21. Iron panel this admission with total iron 427, TIBC 421, iron sat 101 and ferritin 105, acute elevation likely secondary to prior replacement as it was normal except iron at @ 9 on 02/16/2024. * GI bleed scan ordered * Primary care team to continue monitoring H/H and transfuse as needed to keep Hgb >7 * Continue BID PPI * Care with NSAID's, aspirin and anticoags * Patient needs to be transferred to higher level of care as we do not have IR or the ability to do balloon push endoscopy if a small bowel source is i dentified. Treatment options for GI bleeding were discussed at length with the patient and she agrees that it needs to be fixed but she had concerns with transportation * Further recs to follow bleed scan Thank you very much for allowing me to share in the care of this patient. This report may have been done utilizing a voice recognition system. Attempts have been made to correct errors. However, there may be uncorrected grammatical, spelling, and recognition errors present. GI Consult Note Consult date/time: 02/17/24 08:21 HPI: Shellie Lund is a 88 year old female with past medical surgical Hx of HTN, GOUT, GERD, hysterectomy, bladder suspension, Hx of CVA diabetes, CKD and recurrent GI bleeds. She presented back to the ER today with complaints of bloody bowel movements. GI consulted for GI bleed. Patient with Hx of frequent GI bleeds dating back to before 2017 and this is her 3rd hospitalization for GI bleeding since October. She is only on aspirin 81 mg daily. Colonoscopy 02/14/2024 showed moderate amount of dried blood throughout the colon and multiple diverticula but no bleeding source was identified. Marko roman has a Hx of colon surgery at
--- NOTE | 2024-02-17 08:21 | WPDGICN ---
Assessment and Plan Assessment and plan (1) Acute blood loss anemia: Code(s): D62 - Acute posthemorrhagic anemia Status: Acute (2) GI bleeding: Qualifiers: GI bleed type/associated pathology: anorectal hemorrhage Qualified Code(s): K62.5 - Hemorrhage of anus and rectum Code(s): K92.2 - Gastrointestinal hemorrhage, unspecified Status: Acute Plan 1) Lower GI bleed/ABLA: Patient with long standing Hx of GI bleeding. She has been admitted 3 times since October for bleeding. Colonoscopy 02/14/2024 showed blood throughout the colon and bleeding source was thought to be diverticular but no specific source could be identified. She was just discharged yesterday and returned today with complaints of recurrent rectal bleeding last night x 3 BM's. No BM or rectal bleeding since admssion. Patient with drop in H/H since February 12 with Hgb 11-->6.6 and Hct 35-->21. Iron panel this admission with total iron 427, TIBC 421, iron sat 101 and ferritin 105, acute elevation likely secondary to prior replacement as it was normal except iron at @ 9 on 02/16/2024. GI bleed scan ordered Primary care team to continue monitoring H/H and transfuse as needed to keep Hgb >7 Continue BID PPI Care with NSAID's, aspirin and anticoags Patient needs to be transferred to higher level of care as we do not have IR or the ability to do balloon push endoscopy if a small bowel source is identified. Treatment options for GI bleeding were discussed at length with the patient and she agrees that it needs to be fixed but she had concerns with transportation Further recs to follow bleed scan Thank you very much for allowing me to share in the care of this patient. This report may have been done utilizing a voice recognition system. Attempts have been made to correct errors. However, there may be uncorrected grammatical, spelling, and recognition errors present. GI Consult Note Consult date/time: 02/17/24 08:21 HPI: Shellie Lund is a 88 year old female with past medical surgical Hx of HTN, GOUT, GERD, hysterectomy, bladder suspension, Hx of CVA diabetes, CKD and recurrent GI bleeds. She presented back to the ER today with complaints of bloody bowel movements. GI consulted for GI bleed. Patient with Hx of frequent GI bleeds dating back to before 2017 and this is her 3rd hospitalization for GI bleeding since October. She is only on aspirin 81 mg daily. Colonoscopy 02/14/2024 showed moderate amount of dried blood throughout the colon and multiple diverticula but no bleeding source was identified. Patient has a Hx of colon surgery at some point between [id number] but was unable to say why or exactly when she had this surgery performed. Per patient she had 3 BM's yesterday evening that were bright red but denies any DM or rectal bleeding since admission. she is currently receiving blood transfusion. She denies any GI complaints. She typically has a formed on urgent bowel movement every 1-2 days. Denies abdominal pain, nausea, vomiting, bloating, odynophagia, dysphagia, reflux, regurgitation, early satiety, unexplained weight loss, appetite loss, diarrhea, constipation, or melena. ENDOSCOPY HISTORY: EGD: Patient able to say if she ever had an EGD COLONOSCOPY: 02/14/2024 (Dr. Richardson) for GI bleed and anemia a moderate amount of dried blood was seen throughout the colon, no inflammation multiple diverticula were present throughout the colon, no more active bleeding but noted clots and dried blood in the colon. Source of diverticula but could not pinpoint which one was bleeding the terminal ileum and colon was examined and was normal otherwise, no AVM, no colitis or polyp a few small sized internal hemorrhoids were seen in the rectum, no active bleeding COLONOSCOPY: 02/25/2018 (Dr. Garrison) for lower GI bleed the the mid ascending colon, 3 sessile polyps, ranging in size from
[2024-02-17] MEDS: FENOFIBRATE 160 MG TABLET PO (10:06)
[2024-02-17] MEDS: LEVOTHYROXINE SODIUM 50 MCG TABLET PO (10:06)
[2024-02-17] MEDS: GABAPENTIN 100 MG CAPSULE PO ×3 (10:06→17:10)
[2024-02-17 10:16] LABS: Hematocrit 24.6 % (37.0-47.0); Hemoglobin 7.9 g/dL (12.0-15.0)
[2024-02-17 12:01] LABS: Glucose Point of Care 102 mg/dl (65-105)
[2024-02-17] MEDS: TUBING, BLOOD PLUM PUMP TUBING 1 EACH XX (14:36)
[2024-02-17 16:26] LABS: Hematocrit 28.7 % (37.0-47.0); Hemoglobin 9.6 g/dL (12.0-15.0)
[2024-02-17 16:51] LABS: Glucose Point of Care 103 mg/dl (65-105)
[2024-02-17 19:52] LABS: Glucose Point of Care 123 mg/dl (65-105)
[2024-02-17 23:15] LABS: Hematocrit 28.2 % (37.0-47.0); Hemoglobin 9.4 g/dL (12.0-15.0)
[2024-02-18] VITALS (10 sets, daily range): BP systolic 138–193; BP diastolic 47–79; PULSE 65–97; RESP 14–18; TEMP 36.6–37.2; O2SAT 95–98
[2024-02-18 00:15] LABS: Glucose Point of Care 103 mg/dl (65-105)
[2024-02-18 05:41] LABS: Basophils Absolute Auto 0.1 K/mm3 (0.0-0.1); Basophils Percent Auto 1.1 % (0.2-1.2); Eosinophils Absolute Auto 0.4 K/mm3 (0-0.3); Eosinophils Percent Auto 3.6 % (0-4.4); Hematocrit 29.6 % (37.0-47.0); Hemoglobin 9.6 g/dL (12.0-15.0); Immature Granulocyte Absolute 0.09 K/mm3 (0.00-0.031); Immature Granulocyte Percent A 0.9 % (0-0.5); Lymphocytes Absolute Auto 1.83 K/mm3 (0.9-3.2); Lymphocytes Percent Auto 18.3 % (18.3-44.2); Mean Corpuscular HGB Conc 32.4 g/dl (32-36); Mean Corpuscular Hemoglobin 29.4 pg (26-34); Mean Corpuscular Volume 90.8 fl (80-100); Mean Platelet Volume 11.9 fl (7.4-10.4); Monocytes Absolute Auto 0.9 K/mm3 (0.1-0.6); Monocytes Percent Auto 8.5 % (2.6-8.5); Neutrophils Absolute Auto 6.7 K/mm3 (1.3-6.7); Neutrophils Percent Auto 67.6 % (45.5-73.1); Nucleated Red Blood Cells Perc 0.2 % (0.0-0.2); Platelet Count Result 209 k/mm3 (150-375); Red Blood Count 3.26 M/mm3 (4.2-5.4); Red Cell Distribution Width 14.5 % (11.5-14.5)
[2024-02-18] MEDS: LEVOTHYROXINE SODIUM 50 MCG TABLET PO (05:49)
[2024-02-18 05:53] LABS: Glucose Point of Care 92 mg/dl (65-105)
[2024-02-18] MEDS: SODIUM CHLORIDE 0.9% IV 1,000 ML 75 ML IV CONT ×2 (05:55→19:38)
[2024-02-18 06:07] LABS: Alanine Aminotransferase 15 U/L (6-35); Albumin Level 3.2 g/dL (3.5-5.1); Alkaline Phosphatase 35 U/L (38-126); Anion Gap 5 mmol/L (4-12); Aspartate Amino Transferase 27 U/L (14-36); Bilirubin,Total 0.3 mg/dL (0.2-1.3); Blood Urea Nitrogen 15 mg/dL (7-17); Calcium 8.8 mg/dL (8.4-10.2); Carbon Dioxide 25 mmol/L (22-30); Chloride 112 mmol/L (98-107); Estimated CRCL calculation 28 ml/min; Estimated Glomerular Filt Rate 59; Glucose 91 mg/dL (65-110); Magnesium 1.8 mg/dL (1.6-2.3); Potassium 3.4 mmol/L (3.4-5.0); Sodium 142 mmol/L (137-145)
--- NOTE | 2024-02-18 07:29 | P.PNIM_ITS ---
Progress Note: A&P Assessment and Plan (1) Right renal mass: Code(s): N28.89 - Other specified disorders of kidney and ureter Status: Acute (2) Acute GI bleeding: Code(s): K92.2 - Gastrointestinal hemorrhage, unspecified Status: Acute (3) Hypertension: Code(s): I10 - Essential (primary) hypertension Status: Acute (4) Chronic kidney disease: Code(s): N18.9 - Chronic kidney disease, unspecified Status: Acute (5) Type 2 diabetes mellitus: Code(s): E11.9 - Type 2 diabetes mellitus without complications Status: Acute Plan GI bleed Patient was discharged recently after she was managed for diverticular bleed Likely having another diverticular bleed PPI, IVF GI consulted 02/16: * Patient was just scoped by GI yesterday and findings were signs of recent diverticular bleed but no active bleeding. Dr Richardson had recommended that if patient had recurrent bleeding to consult surgery and may need transfer to tertiary care for IR intervention . * GI bleed nuclear medicine study has been ordered. * Hemoglobin 6.6 g/dL this morning; transfusion recommended less than 7 g/dL * Transfuse 2 unit pRBC * Iron studies are elevated but patient just received IV Venofer yesterday prior to discharge * Protonix IV b.i.d. * Serial H/H * Maintenance fluids at 75 mL an hour after blood transfusion. * Clear liquid diet 02/17- note from GI reviewed: recurrent diverticular bleed in fact recent hospitalization and had colonoscopy 3 days ago, found dried hematin with multiple diverticula without any more active bleeding...now doing better, no more report of LGBI today, GIB scan negative. Hopefully bleeding stopped. Recommend to consult surgery and if starts bleeding again then transfer to tertiary hospital for consideration of IR consult for possible embolization. Monitor for more signs of bleeding and keep hgb>7 Anemia HB 7.4 Iron panel and ferritin Monitor H and H and transfuse with threshold of 7 for HB 02/16: * see above [id number] today. will repeat H/H tomorrow and if no bleeding and h/h stable- discharge with [facility] GI follow up DM2 SSI with accu cheks, adjust with clinical course 02/16: * Blood glucose reviewed 174 * Low dose SSI, hypoglycemia protocol, AC/HS * Clear liquid diet HTN titrate home MEDS with clinical course 02/16: * Blood pressures reviewed and are stable * 122/46, HR 63 02/17-BP stable- monitor Known renal mass per chart review patient does not want to further investigate mass Lung mass S/p biopsy on 12/2023 no malignancy DVT prophylaxis on SCDs, no AC due to GI bleed Full code Time Spent With Patient Time with patient: 25 - 35 minutes Subjective Date/time seen: 02/18/24 07:29 Interval history: 02/17 recent hospitalization and had colonoscopy 3 days ago- dried hematin with multiple diverticula without any more active
--- NOTE | 2024-02-18 07:29 | PM.IMPN ---
Progress Note: A&P Assessment and Plan (1) Right renal mass: Code(s): N28.89 - Other specified disorders of kidney and ureter Status: Acute (2) Acute GI bleeding: Code(s): K92.2 - Gastrointestinal hemorrhage, unspecified Status: Acute (3) Hypertension: Code(s): I10 - Essential (primary) hypertension Status: Acute (4) Chronic kidney disease: Code(s): N18.9 - Chronic kidney disease, unspecified Status: Acute (5) Type 2 diabetes mellitus: Code(s): E11.9 - Type 2 diabetes mellitus without complications Status: Acute Plan GI bleed Patient was discharged recently after she was managed for diverticular bleed Likely having another diverticular bleed PPI, IVF GI consulted 02/16: Patient was just scoped by GI yesterday and findings were signs of recent diverticular bleed but no active bleeding. Dr Richardson had recommended that if patient had recurrent bleeding to consult surgery and may need transfer to tertiary care for IR intervention . GI bleed nuclear medicine study has been ordered. Hemoglobin 6.6 g/dL this morning; transfusion recommended less than 7 g/dL Transfuse 2 unit pRBC Iron studies are elevated but patient just received IV Venofer yesterday prior to discharge Protonix IV b.i.d. Serial H/H Maintenance fluids at 75 mL an hour after blood transfusion. Clear liquid diet 02/17- note from GI reviewed: recurrent diverticular bleed in fact recent hospitalization and had colonoscopy 3 days ago, found dried hematin with multiple diverticula without any more active bleeding...now doing better, no more report of LGBI today, GIB scan negative. Hopefully bleeding stopped. Recommend to consult surgery and if starts bleeding again then transfer to tertiary hospital for consideration of IR consult for possible embolization. Monitor for more signs of bleeding and keep hgb>7 Anemia HB 7.4 Iron panel and ferritin Monitor H and H and transfuse with threshold of 7 for HB 02/16: see above [id number]/[id number] today. will repeat H/H tomorrow and if no bleeding and h/h stable- discharge with [facility] GI follow up DM2 SSI with accu cheks, adjust with clinical course 02/16: Blood glucose reviewed 174 Low dose SSI, hypoglycemia protocol, AC/HS Clear liquid diet HTN titrate home MEDS with clinical course 02/16: Blood pressures reviewed and are stable 122/46, HR 63 02/17-BP stable- monitor Known renal mass per chart review patient does not want to further investigate mass Lung mass S/p biopsy on 12/2023 no malignancy DVT prophylaxis on SCDs, no AC due to GI bleed Full code Time Spent With Patient Time with patient: 25 - 35 minutes Subjective Date/time seen: 02/18/24 07:29 Interval history: 02/17 recent hospitalization and had colonoscopy 3 days ago- dried hematin with multiple diverticula without any more active bleeding. She went home but re admitted with hematochezia, hgb down to 6 and received blood transfusion, doing better, no more report of LGBI , GIB scan negative. Hopefully bleeding stopped. Surgery was consulted0- not no interventions- as pt would need IR consult for possible embolization. Monitor for more signs of bleeding and keep hgb>7. 02/17- H/H 05/07/29.6 today. Pt is seen and examined at the bedside. Pt doesnot want to go to [facility] at all as her or her cannot drive to [facility]. She had been stable today- reports no bleeding- discussed an option to discharge home and have outpt f/u with GI- resources provided for [facility] office in [place]. Pt got worked up and anxious worrying that she would have to go to [facility] as she doensot want to. BP elevated. will restart her home dose of amlodipine. She recently was started on indomethacin-which is being held. will check uric acid and if elevated start allopurinol. Review of Systems Review of Systems: all other systems were reviewed and negati
[2024-02-18 07:56] LABS: Glucose Point of Care 107 mg/dl (65-105)
[2024-02-18] MEDS: PANTOPRAZOLE SODIUM IV 40 MG VIAL IV PUSH ×2 (08:17→20:40)
[2024-02-18] MEDS: GABAPENTIN 100 MG CAPSULE PO ×3 (08:17→16:51)
[2024-02-18] MEDS: FENOFIBRATE 160 MG TABLET PO (08:17)
[2024-02-18 12:13] LABS: Glucose Point of Care 95 mg/dl (65-105)
[2024-02-18 16:46] LABS: Glucose Point of Care 118 mg/dl (65-105)
--- NOTE | 2024-02-18 17:58 | WPDGIPROGNO ---
Progress Note: A&P Assessment and Plan (1) Acute GI bleeding: Code(s): K92.2 - Gastrointestinal hemorrhage, unspecified Status: Acute Assessment and Plan: once again here with recurrent diverticula bleed GIB scan negative and no more BM since admission h/h stable after blood transfusion tolerating diet, if no more bleeding then ok to discharge tomorrow (2) Diverticular hemorrhage: Code(s): K57.31 - Diverticulosis of large intestine without perforation or abscess with bleeding Status: Acute (3) Anemia, blood loss: Code(s): D50.0 - Iron deficiency anemia secondary to blood loss (chronic) Status: Resolved Subjective Date/time seen: 02/18/24 17:58 Interval history: no BM today and she feels great, would like to go home tomorrow if possible Review of Systems Review of Systems: All systems reviewed & are unremarkable except as noted in HPI and below Exam Const: General: comfortable and no acute distress HENMT: Face/Nose/Sinus: Normal nares present Eyes: Sclera: sclerae normal Neck: Neck: supple Resp: Auscultation: clear to auscultation bilaterally Cardio: Rate: regular rate Rhythm: regular rhythm GI: Inspection: non-distended GI Palp: Yes Soft to palpation and No Tenderness to palpation present (GI) Auscultation: normal bowel sounds Skin: General skin exam: no rashes or lesions noted Neuro: Speech: normal speech Motor exam (neuro): 5/5 motor strength present throughout Extrem: General: normal to inspection Psych: Mental Status: mental status grossly normal Objective Data Vital Signs Vital Signs: Vital Signs - 24 hr 02/17/24 20:00 02/17/24 21:00 02/17/24 20:00 Temperature 97.8 F Pulse Rate 64 61 Respiratory Rate 18 Blood Pressure 144/53 H Pulse Oximetry 97 Oxygen Delivery Room Air 02/18/24 00:00 02/18/24 04:00 02/18/24 04:00 Temperature 97.9 F Pulse Rate 70 65 77 Respiratory Rate 18 Blood Pressure 138/47 L Pulse Oximetry 98 Oxygen Delivery 02/18/24 08:00 02/18/24 13:54 02/18/24 08:00 Temperature 98.9 F Pulse Rate 81 73 Respiratory Rate 14 Blood Pressure 193/48 H Pulse Oximetry 97 Oxygen Delivery Room Air 02/18/24 12:00 02/18/24 16:00 02/18/24 17:09 Temperature Pulse Rate 97 80 Respiratory Rate Blood Pressure 150/79 H Pulse Oximetry Oxygen Delivery Intake/Output Intake/Output: Intake & Output 02/15/24 02/16/24 02/17/24 02/18/24 23:59 23:59 23:59 23:59 Intake Total 3310 630 Output Total 200 Balance 3110 630 Meds/Results Medications: Active Medications Generic Name Dose Route Start Last Admin Trade Name Freq PRN Reason Stop Dose Admin Amlodipine Besylate 5 mg 02/19/24 09:00 Amlodipine Besylate 5 Mg Tablet PO DAILY VIKAS Dextrose 12.5 gm 02/17/24 07:51 Dextrose 50% 25 Gm/50 Ml Syringe IV PUSH PRN PRN Hypoglycemia Protocol Fenofibrate 160 mg 02/17/24 09:00 02/18/24 08:17 Fenofibrate 160 Mg Tablet PO 160 mg DAILY VIKAS Administration Gabapentin 100 mg 02/17/24 09:00 02/18/24 16:51 Gabapentin 100 Mg Capsule PO 100 mg TID VIKAS Administration Glucagon 1 mg 02/17/24 07:51 Glucagon For Inj 1 Mg Vial IM PRN PRN Hypoglycemia Protocol Glucose 15 gm 02/17/24 07:51 Glucose Oral Gel 15 Gm Of Glucse In 37.5 Gm Tube PO PRN PRN Hypoglycemia Protocol Sodium Chloride 1,000 mls @ 75 mls/hr 02/17/24 05:30 02/18/24 05:55 Normal Saline Iv IV CONT 75 mls/hr .[id number] VIKAS Administration Dextrose 1,000 mls @ 100 mls/hr 02/17/24 07:51 Dextrose 5% 1,000 Ml IVPB PRN PRN Hypoglycemia Protocol Insulin Aspart 2 - 5 units 02/17/24 12:00 02/18/24 16:50 Insulin Aspart (*Bkc) 100 Units/Ml SUB-Q Not Given Q6HR VIKAS Protocol Levothyroxine Sodium 50 mcg 02/17/24 07:40 02/18/24 05:49 Levothyroxine Sodium 50 Mcg Tablet PO 50 mcg D
[2024-02-18 20:25] LABS: Glucose Point of Care 157 mg/dl (65-105)
[2024-02-18] MEDS: ACETAMINOPHEN 500 MG TABLET 1000 MG PO (21:51)
[2024-02-19] VITALS: PULSE 87
[2024-02-19] LABS: Glucose Point of Care 133 mg/dl (65-105)
[2024-02-19 04:00] VITALS: PULSE 77
[2024-02-19 04:13] VITALS: BP 136/68; PULSE 82; RESP 17; TEMP 36.6; O2SAT 96
[2024-02-19] MEDS: LEVOTHYROXINE SODIUM 50 MCG TABLET PO (05:54)
[2024-02-19] MEDS: ACETAMINOPHEN 500 MG TABLET 1000 MG PO (06:25)
[2024-02-19 06:47] LABS: Glucose Point of Care 122 mg/dl (65-105)
--- NOTE | 2024-02-19 07:11 | P.PNIM_ITS ---
Progress Note: A&P Assessment and Plan (1) Right renal mass: Code(s): N28.89 - Other specified disorders of kidney and ureter Status: Acute Assessment and Plan: per CT report: 1.5 cm right renal lesion with soft tissue density which could represent either renal cell carcinoma or complex proteinaceous/hemorrhagic cyst. Recommend further evaluation with pre and postcontrast MRI or CT.- will need f/u outpt (2) Acute GI bleeding: Code(s): K92.2 - Gastrointestinal hemorrhage, unspecified Status: Acute (3) Hypertension: Code(s): I10 - Essential (primary) hypertension Status: Acute (4) Chronic kidney disease: Code(s): N18.9 - Chronic kidney disease, unspecified Status: Acute (5) Type 2 diabetes mellitus: Code(s): E11.9 - Type 2 diabetes mellitus without complications Status: Acute Plan GI bleed Patient was discharged recently after she was managed for diverticular bleed Likely having another diverticular bleed PPI, IVF GI consulted 02/16: * Patient was just scoped by GI yesterday and findings were signs of recent diverticular bleed but no active bleeding. Dr Richardson had recommended that if patient had recurrent bleeding to consult surgery and may need transfer to tertiary care for IR intervention . * GI bleed nuclear medicine study has been ordered. * Hemoglobin 6.6 g/dL this morning; transfusion recommended less than 7 g/dL * Transfuse 2 unit pRBC * Iron studies are elevated but patient just received IV Venofer yesterday prior to discharge * Protonix IV b.i.d. * Serial H/H * Maintenance fluids at 75 mL an hour after blood transfusion. * Clear liquid diet 02/17- note from GI reviewed: recurrent diverticular bleed in fact recent hospitalization and had colonoscopy 3 days ago, found dried hematin with multiple diverticula without any more active bleeding...now doing better, no m [facility] report of LGBI today, GIB scan negative. Hopefully bleeding stopped. Recommend to consult surgery and if starts bleeding again then transfer to tertiary hospital for consideration of IR consult for possible embolization. Monitor for more signs of bleeding and keep hgb>7 Anemia HB 7.4 Iron panel and ferritin Monitor H and H and transfuse with threshold of 7 for HB 02/16: * see above [id number] today. will repeat H/H tomorrow and if no bleeding and h/h stable- discharge with [facility] GI follow up DM2 SSI with accu cheks, adjust with clinical course 02/16: * Blood glucose reviewed 174 * Low dose SSI, hypoglycemia protocol, AC/HS * Clear liquid diet HTN titrate home MEDS with clinical course 02/16: * Blood pressures reviewed and are stable * 122/46, HR 63 02/17-BP stable- monitor Known renal mass per chart review patient does not want to further investigate mass Lung mass S/p biopsy on 12/2023 no malignancy DVT prophylaxis on SCDs, no AC due to GI bleed Full code Ti
--- NOTE | 2024-02-19 07:11 | PM.IMPN ---
Progress Note: A&P Assessment and Plan (1) Right renal mass: Code(s): N28.89 - Other specified disorders of kidney and ureter Status: Acute Assessment and Plan: per CT report: 1.5 cm right renal lesion with soft tissue density which could represent either renal cell carcinoma or complex proteinaceous/hemorrhagic cyst. Recommend further evaluation with pre and postcontrast MRI or CT.- will need f/u outpt (2) Acute GI bleeding: Code(s): K92.2 - Gastrointestinal hemorrhage, unspecified Status: Acute (3) Hypertension: Code(s): I10 - Essential (primary) hypertension Status: Acute (4) Chronic kidney disease: Code(s): N18.9 - Chronic kidney disease, unspecified Status: Acute (5) Type 2 diabetes mellitus: Code(s): E11.9 - Type 2 diabetes mellitus without complications Status: Acute Plan GI bleed Patient was discharged recently after she was managed for diverticular bleed Likely having another diverticular bleed PPI, IVF GI consulted 02/16: Patient was just scoped by GI yesterday and findings were signs of recent diverticular bleed but no active bleeding. Dr Richardson had recommended that if patient had recurrent bleeding to consult surgery and may need transfer to tertiary care for IR intervention . GI bleed nuclear medicine study has been ordered. Hemoglobin 6.6 g/dL this morning; transfusion recommended less than 7 g/dL Transfuse 2 unit pRBC Iron studies are elevated but patient just received IV Venofer yesterday prior to discharge Protonix IV b.i.d. Serial H/H Maintenance fluids at 75 mL an hour after blood transfusion. Clear liquid diet 02/17- note from GI reviewed: recurrent diverticular bleed in fact recent hospitalization and had colonoscopy 3 days ago, found dried hematin with multiple diverticula without any more active bleeding...now doing better, no more report of LGBI today, GIB scan negative. Hopefully bleeding stopped. Recommend to consult surgery and if starts bleeding again then transfer to tertiary hospital for consideration of IR consult for possible embolization. Monitor for more signs of bleeding and keep hgb>7 Anemia HB 7.4 Iron panel and ferritin Monitor H and H and transfuse with threshold of 7 for HB 02/16: see above [id number] today. will repeat H/H tomorrow and if no bleeding and h/h stable- discharge with [facility] GI follow up DM2 SSI with accu cheks, adjust with clinical course 02/16: Blood glucose reviewed 174 Low dose SSI, hypoglycemia protocol, AC/HS Clear liquid diet HTN titrate home MEDS with clinical course 02/16: Blood pressures reviewed and are stable 122/46, HR 63 02/17-BP stable- monitor Known renal mass per chart review patient does not want to further investigate mass Lung mass S/p biopsy on 12/2023 no malignancy DVT prophylaxis on SCDs, no AC due to GI bleed Full code Time Spent With Patient Time with patient: 25 - 35 minutes Subjective Date/time seen: 02/19/24 07:11 Interval history: no BM today and she feels great, if h/h stable- home today with GI/IR outpt follow up. Ok with GI. Of note- per CT report: 1.5 cm right renal lesion with soft tissue density which could represent either renal cell carcinoma or complex proteinaceous/hemorrhagic cyst. Recommend further evaluation with pre and postcontrast MRI or CT.- will need f/u outpt. pt is seen and examained today- Review of Systems Review of Systems: all other systems were reviewed and negative except as noted in the HPI above Exam Narrative: General: well appearing, appears stated age. HEENT: normocephalic, atraumatic. Mucous membranes moist. EOMI, PERRLA, bilateral sclera anicteric, no conjunctival injection. Neck supple without JVD, lymphadenopathy, or bruit. Left facial droop. Respiratory: clear to auscultation bilaterally. No rales/rhonic/wheezes. Cardiovascular: R
[2024-02-19 07:21] LABS: Basophils Absolute Auto 0.1 K/mm3 (0.0-0.1); Basophils Percent Auto 0.5 % (0.2-1.2); Eosinophils Absolute Auto 0.2 K/mm3 (0-0.3); Eosinophils Percent Auto 1.6 % (0-4.4); Hematocrit 30.2 % (37.0-47.0); Hemoglobin 9.8 g/dL (12.0-15.0); Immature Granulocyte Absolute 0.07 K/mm3 (0.00-0.031); Immature Granulocyte Percent A 0.6 % (0-0.5); Lymphocytes Absolute Auto 1.22 K/mm3 (0.9-3.2); Lymphocytes Percent Auto 9.8 % (18.3-44.2); Mean Corpuscular HGB Conc 32.5 g/dl (32-36); Mean Corpuscular Hemoglobin 29.6 pg (26-34); Mean Corpuscular Volume 91.2 fl (80-100); Mean Platelet Volume 11.6 fl (7.4-10.4); Monocytes Absolute Auto 1.3 K/mm3 (0.1-0.6); Monocytes Percent Auto 10.3 % (2.6-8.5); Neutrophils Absolute Auto 9.7 K/mm3 (1.3-6.7); Neutrophils Percent Auto 77.2 % (45.5-73.1); Platelet Count Result 222 k/mm3 (150-375); Red Blood Count 3.31 M/mm3 (4.2-5.4); Red Cell Distribution Width 14.6 % (11.5-14.5); White Blood Count 12.5 K/mm3 (4.5-10.0)
[2024-02-19 07:35] LABS: Alanine Aminotransferase 14 U/L (6-35); Albumin Level 3.5 g/dL (3.5-5.1); Alkaline Phosphatase 41 U/L (38-126); Anion Gap 6 mmol/L (4-12); Aspartate Amino Transferase 21 U/L (14-36); Bilirubin,Total 0.6 mg/dL (0.2-1.3); Blood Urea Nitrogen 12 mg/dL (7-17); Calcium 8.7 mg/dL (8.4-10.2); Carbon Dioxide 25 mmol/L (22-30); Chloride 110 mmol/L (98-107); Estimated CRCL calculation 26 ml/min; Estimated Glomerular Filt Rate 53; Glucose 128 mg/dL (65-110); Potassium 3.3 mmol/L (3.4-5.0); Sodium 141 mmol/L (137-145); Uric Acid 4.2 mg/dL (2.5-7.5)
[2024-02-19 08:00] VITALS: PULSE 78
[2024-02-19 08:06] LABS: Glucose Point of Care 134 mg/dl (65-105)
[2024-02-19 08:13] VITALS: BP 116/59; PULSE 76
[2024-02-19] MEDS: FENOFIBRATE 160 MG TABLET PO (08:15)
[2024-02-19] MEDS: GABAPENTIN 100 MG CAPSULE PO ×2 (08:15→12:15)
[2024-02-19] MEDS: PANTOPRAZOLE SODIUM IV 40 MG VIAL IV PUSH (08:15)
[2024-02-19] MEDS: amLODIPine BESYLATE 5 MG TABLET PO (08:15)
--- NOTE | 2024-02-19 11:45 | P.DS_ITS ---
DS: Admitting Diagnosis Discharge Date 02/18 Admitting Diagnosis gi bleed DS: Discharge Diagnosis Discharge Diagnosis (1) Right renal mass: Code(s): N28.89 - Other specified disorders of kidney and ureter Status: Acute Assessment and Plan: per CT report: 1.5 cm right renal lesion with soft tissue density which could represent either renal cell carcinoma or complex proteinaceous/hemorrhagic cyst. Recommend further evaluation with pre and postcontrast MRI or CT.- will need f/u outpt (2) Acute GI bleeding: Code(s): K92.2 - Gastrointestinal hemorrhage, unspecified Status: Acute (3) Hypertension: Code(s): I10 - Essential (primary) hypertension Status: Acute (4) Chronic kidney disease: Code(s): N18.9 - Chronic kidney disease, unspecified Status: Acute (5) Type 2 diabetes mellitus: Code(s): E11.9 - Type 2 diabetes mellitus without complications Status: Acute Plan Final dx: diverticula hemorrhage, GI bleed GI bleed Patient was discharged recently after she was managed for diverticular bleed Likely having another diverticular bleed PPI, IVF GI consulted 02/16: * Patient was just scoped by GI yesterday and findings were signs of recent diverticular bleed but no active bleeding. Dr Richardson had recommended that if patient had recurrent bleeding to consult surgery and may need transfer to tertiary care for IR intervention . * GI bleed nuclear medicine study has been ordered. * Hemoglobin 6.6 g/dL this morning; transfusion recommended less than 7 g/dL * Transfuse 2 unit pRBC * Iron studies are elevated but patient just received IV Venofer yesterday prior to discharge * Protonix IV b.i.d. * Serial H/H * Maintenance fluids at 75 mL an hour after blood transfusion. * Clear liquid diet 02/17- note from GI reviewed: recurrent diverticular bleed in fact recent hospitalization and had colonoscopy 3 days ago, found dried hematin with multiple diverticula without any more active bleeding...now doing better, no more report of LGBI today, GIB scan negative. Hopefully bleeding stopped. Recommend to consult surgery and if starts bleeding again then transfer to [facility] for consideration of IR consult for possible embolization. Monitor for more signs of bleeding and keep hgb>7 Anemia HB 7.4 Iron panel and ferritin Monitor H and H and transfuse with threshold of 7 for HB 02/16: * see above 02/1718-[id number]-[id number] today. will repeat H/H tomorrow and if no bleeding and h/h stable- discharge with [facility] GI follow up DM2 SSI with accu cheks, adjust with clinical course 02/16: * Blood glucose reviewed 174 * Low dose SSI, hypoglycemia protocol, AC/HS * Clear liquid diet HTN titrate home MEDS with clinical course 02/16: * Blood pressures reviewed and are stable * 122/46, HR 63 02/17-BP stable- monitor Known renal mass per chart review patient does not want to further investigate mass Lung mass S/p biopsy on 12/2023 no malignancy
--- NOTE | 2024-02-19 11:45 | PM.DS ---
DS: Admitting Diagnosis Discharge Date 02/18 Admitting Diagnosis gi bleed DS: Discharge Diagnosis Discharge Diagnosis (1) Right renal mass: Code(s): N28.89 - Other specified disorders of kidney and ureter Status: Acute Assessment and Plan: per CT report: 1.5 cm right renal lesion with soft tissue density which could represent either renal cell carcinoma or complex proteinaceous/hemorrhagic cyst. Recommend further evaluation with pre and postcontrast MRI or CT.- will need f/u outpt (2) Acute GI bleeding: Code(s): K92.2 - Gastrointestinal hemorrhage, unspecified Status: Acute (3) Hypertension: Code(s): I10 - Essential (primary) hypertension Status: Acute (4) Chronic kidney disease: Code(s): N18.9 - Chronic kidney disease, unspecified Status: Acute (5) Type 2 diabetes mellitus: Code(s): E11.9 - Type 2 diabetes mellitus without complications Status: Acute Plan Final dx: diverticula hemorrhage, GI bleed GI bleed Patient was discharged recently after she was managed for diverticular bleed Likely having another diverticular bleed PPI, IVF GI consulted 02/16: Patient was just scoped by GI yesterday and findings were signs of recent diverticular bleed but no active bleeding. Dr Richardson had recommended that if patient had recurrent bleeding to consult surgery and may need transfer to tertiary care for IR intervention . GI bleed nuclear medicine study has been ordered. Hemoglobin 6.6 g/dL this morning; transfusion recommended less than 7 g/dL Transfuse 2 unit pRBC Iron studies are elevated but patient just received IV Venofer yesterday prior to discharge Protonix IV b.i.d. Serial H/H Maintenance fluids at 75 mL an hour after blood transfusion. Clear liquid diet 02/17- note from GI reviewed: recurrent diverticular bleed in fact recent hospitalization and had colonoscopy 3 days ago, found dried hematin with multiple diverticula without any more active bleeding...now doing better, no more report of LGBI today, GIB scan negative. Hopefully bleeding stopped. Recommend to consult surgery and if starts bleeding again then transfer to tertiary hospital for consideration of IR consult for possible embolization. Monitor for more signs of bleeding and keep hgb>7 Anemia HB 7.4 Iron panel and ferritin Monitor H and H and transfuse with threshold of 7 for HB 02/16: see above 02/1798-rztstnq-wcrliy today. will repeat H/H tomorrow and if no bleeding and h/h stable- discharge with [facility] GI follow up DM2 SSI with accu cheks, adjust with clinical course 02/16: Blood glucose reviewed 174 Low dose SSI, hypoglycemia protocol, AC/HS Clear liquid diet HTN titrate home MEDS with clinical course 02/16: Blood pressures reviewed and are stable 122/46, HR 63 02/17-BP stable- monitor Known renal mass per chart review patient does not want to further investigate mass Lung mass S/p biopsy on 12/2023 no malignancy DVT prophylaxis on SCDs, no AC due to GI bleed Full code DS: Summary Hospital Course Hospital Course: 02/17 recent hospitalization and had colonoscopy 3 days ago- dried hematin with multiple diverticula without any more active bleeding. She went home but re admitted with hematochezia, hgb down to 6 and received blood transfusion, doing better, no more report of LGBI , GIB scan negative. Hopefully bleeding stopped. Surgery was consulted0- not no interventions- as pt would need IR consult for possible embolization. Monitor for more signs of bleeding and keep hgb>7. 6/- H/H 05/07/29.6 today. Pt is seen and examined at the bedside. Pt doesnot want to go to [facility] at all as her or her cannot drive to [facility]. She had been stable today- reports no bleeding- discussed an option to discharge home and have outpt f/u with GI- resources provided for [facility] office in [place]. Pt got worked up and anxious worrying
[2024-02-19 11:52] LABS: Glucose Point of Care 110 mg/dl (65-105)
[2024-02-19 12:00] VITALS: PULSE 82
--- NOTE | 2024-02-19 13:21 | WPDGIPROGNO ---
Progress Note: A&P Assessment and Plan (1) Acute GI bleeding: Code(s): K92.2 - Gastrointestinal hemorrhage, unspecified Status: Acute Assessment and Plan: admitted again with recurrent diverticula bleed GIB scan negative and no more BM since admission with stable hemoglobin after blood transfusion she is going home, advised to monitor for signs of bleeding (2) Diverticular hemorrhage: Code(s): K57.31 - Diverticulosis of large intestine without perforation or abscess with bleeding Status: Acute (3) Anemia, blood loss: Code(s): D50.0 - Iron deficiency anemia secondary to blood loss (chronic) Status: Resolved Subjective Date/time seen: 02/19/24 13:00 Interval history: she is going home now, no more signs of bleeding Review of Systems Review of Systems: All systems reviewed & are unremarkable except as noted in HPI and below Exam Const: General: comfortable and no acute distress HENMT: Face/Nose/Sinus: Normal nares present Eyes: Sclera: sclerae normal Neck: Neck: supple Resp: Auscultation: clear to auscultation bilaterally Cardio: Rate: regular rate Rhythm: regular rhythm GI: Inspection: non-distended GI Palp: Yes Soft to palpation and No Tenderness to palpation present (GI) Auscultation: normal bowel sounds Skin: General skin exam: no rashes or lesions noted Neuro: Speech: normal speech Motor exam (neuro): 5/5 motor strength present throughout Extrem: General: normal to inspection Psych: Mental Status: mental status grossly normal Objective Data Vital Signs Vital Signs: Vital Signs - 24 hr 02/18/24 13:54 02/18/24 16:00 02/18/24 17:09 Temperature 98.9 F Pulse Rate 81 80 Respiratory Rate 14 Blood Pressure 193/48 H 150/79 H Pulse Oximetry 97 Oxygen Delivery 02/18/24 19:33 02/18/24 20:30 02/18/24 23:05 Temperature 98.9 F Pulse Rate 92 Respiratory Rate 17 Blood Pressure 162/56 H Pulse Oximetry 96 95 Oxygen Delivery Room Air Room Air 02/18/24 20:00 02/19/24 00:00 02/19/24 04:13 Temperature 97.9 F Pulse Rate 90 87 82 Respiratory Rate 17 Blood Pressure 136/68 Pulse Oximetry 96 Oxygen Delivery 02/19/24 04:00 02/19/24 08:13 02/19/24 08:00 Temperature Pulse Rate 77 76 78 Respiratory Rate Blood Pressure 116/59 L Pulse Oximetry Oxygen Delivery 02/19/24 08:15 02/19/24 12:00 Temperature Pulse Rate 82 Respiratory Rate Blood Pressure Pulse Oximetry Oxygen Delivery Room Air Intake/Output Intake/Output: Intake & Output 02/16/24 02/17/24 02/18/24 02/19/24 23:59 23:59 23:59 23:59 Intake Total 3310 1690 240 Output Total 200 Balance 3110 1690 240 Meds/Results Radiology Results: ITS Impressions GI Bleed Scan Nuclear Medicine 02/17/24 13:54 IMPRESSION: 1. No evidence of active gastrointestinal hemorrhage. Labs Labs: Laboratory Results - last 24 hr 02/18/24 02/18/24 02/18/24 16:43 19:30 23:54 WBC RBC Hgb Hct MCV MCH MCHC RDW Plt Count MPV Immature Gran % (Auto) Neut % (Auto) Lymph % (Auto) Clinton % (Auto) Eos % (Auto) Baso % (Auto) Lymph # (Auto) Clinton # (Auto) Eos # (Auto) Baso # (Auto) Abs Immat Gran (auto) Absolute Neuts (auto) Absolute Nucleated RBC Nucleated RBC % Sodium Potassium Chloride Carbon Dioxide Anion Gap BUN Creatinine Estim Creat Clear Calc Estimated GFR Glucose POC Capillary Glucose 118 H 157 H 133 H Uric Acid Calcium Total Bilirubin AST ALT Alkaline Phosphatase Total Protein Albumin 02/19/24 02/19/24 02/19/24 05:52 07:11 07:57 WBC 12.5 H RBC 3.31 L Hgb 9.8 L Hct 30.2 L MCV 91.2 MCH 29.6 MCHC 32.5 RDW 14.6 H Plt Count 222 MPV 11.6 H Immature Gran % (Auto) 0.6 H Neut % (Auto) 77.2 H Lymph % (Auto) 9.8 L Clinton % (
== END 2024-02-19 13:09 | disposition home or self-care (01) | DRG 378 ==
LOC: ANHED 04:05 → ANH2MED 04:20
PROVIDERS: Internal Medicine; Nurse Practitioner Acute Care; Admitting Provider Internal Medicine; Emergency Provider Emergency Medicine; PCP Family Medicine; Visit Provider Nurse Practitioner
DX: K57.31 Diverticulosis of large intestine without perforation or abscess with bleeding (principal); D62 Acute posthemorrhagic anemia; E11.22 Type 2 diabetes mellitus with diabetic chronic kidney disease; I12.9 Hypertensive chronic kidney disease with stage 1 through stage 4 chronic kidney disease, or unspecified chronic kidney disease; N18.9 Chronic kidney disease, unspecified; K21.9 Gastro-esophageal reflux disease without esophagitis; E03.9 Hypothyroidism, unspecified; J44.9 Chronic obstructive pulmonary disease, unspecified; E78.5 Hyperlipidemia, unspecified; N28.89 Other specified disorders of kidney and ureter; R91.8 Other nonspecific abnormal finding of lung field; Z87.891 Personal history of nicotine dependence; Z86.73 Personal history of transient ischemic attack (TIA), and cerebral infarction without residual deficits
CPT/HCPCS: 36415; 36430; 78278; 80053; 82728; 82948; 83540; 83550; 83690; 83735; 84550; 85014; 85018; 85025; 85610; 85730; 86850; 86900; 86901; 86923; 93005; 96361; 96374; 96375; 99285; A9270; A9560; C9113; G0378; J2405; J7030; P9016

== ENCOUNTER 2024-02-21 20:11 | Inpatient (IN) | payer MEDICARE, BC, SELFPAY ==
--- NOTE | ~2024-02-21 | XR_ITS ---
Portable chest x-ray Comparison: 12/09/2023 Clinical History: Hypoxia Findings: Stable 2.3 cm right midlung pulmonary nodule. Probable minimal pleural effusions and mild bibasilar pulmonary edema/atelectasis. Cardiomediastinal silhouette is stable. Bones and soft tissue s are unremarkable. Impression: Stable 2.3 cm right midlung pulmonary nodule. Minimal pleural effusions with mild bibasilar pulmonary edema/atelectasis. Reviewed, dictated and finalized at location . Impression: Stable 2.3 cm right midlung pulmonary nodule. Minimal pleural effusions with mild bibasilar pulmonary edema/atelectasis.
--- NOTE | ~2024-02-21 | US_ITS ---
EXAMINATION: US abdomen limited DATE: 02/23/2024 09:01 INDICATION: Abnormal liver function tests. TECHNIQUE: Multiple grayscale and Doppler ultrasound images of the abdomen were obtained. COMPARISON: CT abdomen and pelvis 02/13/2024 FINDINGS: The pancreas is obscured by bowel gas. The liver is normal without focal lesion. There is a ntegrade flow in main portal vein. The gallbladder is normal in size. No visible gallstones. Gallblad yuriy wall thickening is noted. There was no sonographic Cadena's sign. The common duct is normal and m easures 3 mm. There is a small volume of perihepatic ascites. IMPRESSION: 1. Small volume of perihepatic ascites. 2. Gallbladder wall thickening, which may be secondary to interstitial edema. Reviewed, dictated and finalized at location A.
[2024-02-21 20:11] VITALS: BP 100/36; PULSE 52; RESP 18; TEMP 36.7; O2SAT 100
--- NOTE | 2024-02-21 20:15 | ECG_ITS ---
Test Date: 2024-02-21 20:16:49 Measurements Intervals Ash Rate: 58 P: 0 [place]: 0 QRS: 64 QRSD: 121 T: 73 QT: 426 QTc: 420 Interpretive Statements SINUS BRADYCARDIA WITH 2ND DEGREE AV BLOCK, MOBITZ TYPE II WITH FREQUENT VENTRICULAR PREMATURE COMPLEXES POSSIBLE RIGHT VENTRICULAR CONDUCTION DELAY [RSR (QR) IN V1/V2] SEPTAL MYOCARDIAL INFARCTION , OF INDETERMINATE AGE [40+ ms Q WAVE IN V1/V2] ST ELEVATION, CONSIDER INFERIOR INJURY [MARKED ST ELEVATION W/O NORMALLY INFLECTED T WAVE IN II/aVF] ACUTE MT ABNORMAL ECG Compared to ECG 02/17/2024 03:15:16 ACUTE INFERIOR CURRENT OF INJURY IS PRESENT Electronically Signed On 02-22-2024 08:40:18 CDT by Guanaco Causey M.D.
[2024-02-21] MEDS: HEPARIN SODIUM 5,000 UNITS/ML VIAL 4000 UNITS IV PUSH (20:20)
[2024-02-21] MEDS: SODIUM CHLORIDE 0.9% IV 1,000 ML 30 ML IV CONT (20:23)
--- NOTE | 2024-02-21 20:27 | PC.NURSE ---
Cardiac Cath team called [employer]AT FINISHER, STEMI protocol initiated upon pts arrival to ed. EDP DR. Jeffers made aware of pts low blood pressures. Verbal order to give ordered 1000mL bolus normal saline.
[2024-02-21 20:30] VITALS: PULSE 46
[2024-02-21 20:40] VITALS: BP 93/41; PULSE 46; RESP 13; O2SAT 95
[2024-02-21 20:47] LABS: Fractional Inspired Oxygen 21 %; HCO3 VBG 18.4 mEq/l (24.0-30.0); PO2 VBG 30.2 mmHg (35.0-45.0)
[2024-02-21 20:49] LABS: pH VBG 7.462 (7.300-7.400)
[2024-02-21 20:50] LABS: Device ROOM AIR; PCO2 VBG 26.4 mmHg (42.0-48.0)
--- NOTE | 2024-02-21 20:50 | PM.IMHP ---
H&P: HPI History of Present Illness Date/Time: 02/21/24 20:50 Chief Complaint: Chest pain Narrative: 88-year-old female with hypertension, dyslipidemia, hypothyroidism on thyroxine replacement, diverticulosis with recent history of GI bleed; history of CVA ( brain MRI dated 12/11/23). Patient presented to [facility] Emergency Room with complaints of chest pain that started about 2-3 hours prior to arrival. EMS EKG which I personally interpreted showed sinus bradycardia, ST elevation in inferior leads with reciprocal ST depression. at the time of evaluation in the medical lab assistant, patient was delirious. I spoke with patient's who states that patient does not have any known prior cardiac history including clinical [place]. He is aware that patient had recent GI bleed. After discussion with patient's , he wanted to proceed with emergency cardiac catheterization with likely primary PCI, and was fully aware of risk of recurrent GI bleed. Review of Systems Review of Systems: review of system as per HPI, the review of systems difficult to obtain due to patient being delirious at the time of clinical presentation. Patient had chest pain that started about 2-3 hours prior to arrival, with associated shortness of breath; no dizziness or syncope. Patient did have altered mental status. [facility] Past Medical History Medical History Actinic keratosis Bilateral carotid bruits Carotid Doppler ultrasounds in December 2023 showed less than 50% stenosis in bilateral internal carotid arteries. 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 She has declined attempts that another biopsy. Right renal mass 1.5 cm right renal lesion Type 2 diabetes mellitus Surgical History Surgical History History of bladder suspension procedure (2002) History of breast biopsy History of tonsillectomy and adenoidectomy History of total hysterectomy with bilateral salpingo-oophorectomy (BSO) (1978) Laryngeal cyst Status post cystectomy Family History Family History Mother Family history of cardiovascular disease Acute myocardial infarction Hypertension Family history of elevated blood lipids Sibling Hypertension Social History Social History Social History: Surrogate medical decision maker: Rafael Lund, spouse. Code status: Full code. Smoking packs per day: 1.5 Smoking cigarettes per day: 30.0 Years smoked: 30 Smoking pack-years: 45.00 Smoking status: Former smoker Alcohol intake: never Substance use: never Substance use type: does not use Do You Feel Safe in your Home?: Yes Lack of Transportation: No Lack of Food: Never True Current Housing: I Have Housing Concerned About Future Housing: No Difficulty Paying Gas/Electric Bills: No Difficulty Paying for Meds: No Currently Unemployed: No Education: Grade School Difficulty w/ Childcare or Family Care: No Additional living arrangements comments: . She remarried about 6 years ago and lives with her Rafael in [place]. Spiritual care concerns: No Meds Home Medications and Allergies Home Medications Medication Instructions Recorded Confirmed Type gabapentin 100 mg capsule 100 mg PO TID #90 caps 08/15/23 02/17/24 Rx indapamide 2.5 mg tablet 2.5 mg PO DAILY #90 tabs 09/02/23
--- NOTE | 2024-02-21 20:52 | ED.GENADULT ---
HPI - General Adult General Chief complaint: Chest Pain Stated complaint: chest pain Time Seen by Provider: 02/21/24 20:18 History of Present Illness HPI narrative: Patient is a 88-year-old female who presents emergency department with chief complaint of chest pain. Patient reports that approximately 1 hour prior to arrival started having midsternal chest pain reports that she called EMS and there was concern for possible [place]. Patient reports no prior history of cardiac disease does report that she was in the hospital recently for diverticulitis and lower GI bleed. Patient reports she has had some blood in her stool since the episode Related Data Home Medications Medication Instructions Recorded Confirmed meclizine 25 mg tablet 25 mg PO TID PRN Dizziness Or 02/13/24 02/21/24 Vertigo levothyroxine 50 mcg tablet 50 mcg PO DAILY 02/17/24 02/21/24 (Synthroid) amlodipine 5 mg tablet 5 mg PO HS 02/21/24 02/21/24 Allergies Allergy/AdvReac Type Severity Reaction Status Date / Time cat dander Allergy Unknown Sneezing Verified 02/17/24 03:21 Sulfa (Sulfonamide Allergy Unknown Swelling Verified 02/17/24 03:21 Antibiotics) atorvastatin AdvReac Muscle Pain Verified 02/17/24 03:21 Review of Systems Review of Systems: A 10 system review of systems was completed on the patient and is negative except for what is stated in the HPI. Nursing and ancillary documentation was reviewed. [facility] Past Medical History Medical History Actinic keratosis Bilateral carotid bruits Carotid Doppler ultrasounds in December 2023 showed less than 50% stenosis in bilateral internal carotid arteries. 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 She has declined attempts that another biopsy. Right renal mass 1.5 cm right renal lesion Type 2 diabetes mellitus Surgical History Surgical History History of bladder suspension procedure (2002) History of breast biopsy History of tonsillectomy and adenoidectomy History of total hysterectomy with bilateral salpingo-oophorectomy (BSO) (1978) Laryngeal cyst Status post cystectomy Family History Family History Mother Family history of cardiovascular disease Acute myocardial infarction Hypertension Family history of elevated blood lipids Sibling Hypertension Social History Social History Social History: Surrogate medical decision maker: Rafael Lund, spouse. Code status: Full code. Smoking packs per day: 2 Smoking cigarettes per day: 40.0 Years smoked: 36 Smoking pack-years: 72.00 Smoking status: Former smoker Alcohol intake: never Substance use: never Substance use type: does not use Do You Feel Safe in your Home?: Yes Lack of Transportation: No Lack of Food: Never True Current Housing: I Have Housing Concerned About Future Housing: No Difficulty Paying Gas/Electric Bills: No Difficulty Paying for Meds: No Currently Unemployed: No Education: Grade School Difficulty w/ Childcare or Family Care: No Additional living arrangements comments: . She remarried about 6 years ago and lives with her Rafael in [place]. Spiritual care concerns: No Exam Narrative: GENERAL: Well-appearing, well-nourished, and in no acute distress. HEAD: Normocephalic, atraumatic. EYES: PERRLA and EOMI. ENT: Na
[2024-02-21 20:53] VITALS: O2SAT 95
--- NOTE | 2024-02-21 20:53 | PC.NURSE ---
Cardiac Cath team arrived to ED 2044. Report given to Gertrudis MANLEY at pt bedside
--- NOTE | 2024-02-21 20:57 | PCRCNOTE ---
VBG ordered in place of ABG order. ABG order discontinued per Dr Jeffers
--- NOTE | 2024-02-21 22:35 | WPDCARDPROC ---
Cardiac Cath Procedure Note Date of procedure:: 02/21/24 Performing physician:: Toni Bonds MD Procedure Procedure performed:: CARDIAC CATHETERIZATION AND PERCUTANEOUS CORONARY INTERVENTION REPORT DATE OF PROCEDURE: 02/21/2024 INDICATION FOR PROCEDURE: Acute coronary syndrome-inferior ST-elevation myocardial infarction BRIEF CLINICAL HISTORY:88-year-old female with hypertension, dyslipidemia, hypothyroidism on thyroxine replacement, diverticulosis with recent history of GI bleed; history of CVA ( brain MRI dated 12/11/23). Patient presented to [facility] Emergency Room with complaints of chest pain that started about 2-3 hours prior to arrival. EMS EKG which I personally interpreted showed sinus bradycardia, ST elevation in inferior leads with reciprocal ST depression. at the time of evaluation in the garage laborer, patient was delirious. I spoke with patient's who states that patient does not have any known prior cardiac history including clinical [place]. He is aware that patient had recent GI bleed. After discussion with patient's , he wanted to proceed with emergency cardiac catheterization with likely primary PCI, and was fully aware of risk of recurrent GI bleed, in addition to other potential complications related to catheterization/intervention. PROCEDURES PERFORMED: 1. Left heart catheterization- Selective left and right coronary angiogram; left ventriculogram and hemodynamic assessment 2. Percutaneous coronary intervention- a) intravascular ultrasound ( IVUS) of right coronary artery b) primary PCI- balloon angioplasty, aspiration thrombectomy, ASSEMBLY DEPARTMENT SUPERVISOR/stenting of totally occluded right coronary artery using 3 sirolimus eluting stents ( 2.75 x 38, 3.0 x 38, 3.0 x 15 mm) in an overlapping fashion without mandaen of flow due to significant thrombus burden in diffusely disease RPL branch 3. Deployment of Mynx hemostatic device 4. Moderate sedation-CPT code 72137 and beyond MODERATE SEDATION: patient was somnolent and delirious, conscious sedation was not used, procedure was done under local anesthesia ACCESS SITE: Right common femoral artery PROCEDURE NOTE: patient was emergently brought to catheterization lab and prepped and draped in a usual sterile manner. After local anesthesia with lidocaine, right common femoral artery access was taken with micropuncture needle followed by insertion of a 6 Malawian sheath. Selective left and right coronary angiogram was performed using 5 Malawian JL4 and 6 Malawian Berlin right guide catheter catheters respectively. Orthogonal views were taken. After completion of PCI, a 5 Malawian pigtail catheter was advanced in the LV cavity and was flushed with normal saline. LV pressure measurement was performed. After this, left ventriculogram was performed. The catheter was flushed again, and gradient across the aortic valve was measured on the pullback of the catheter. After completion of procedure, Mynx vascular closure device was deployed with good hemostasis. FINDINGS: LEFT MAIN CORONARY: medium to large caliber vessel, no significant focal stenosis. LEFT ANTERIOR DESCENDING ARTERY: LAD is a smaller caliber vessel with mild eccentric plaque in the proximal segment. There is poorly defined stenosis in the mid segment at the origin of the major diagonal branch, best seen in the RIZO cranial view. The focal stenosis is possibly high-grade. The vessel tapers distally becomes tortuous and reaches LV apex. Major diagonal branch is a medium caliber vessel with about 60-70% stenosis at the ostium. LEFT CIRCUMFLEX ARTERY: Medium caliber vessel, gives rise to a very tortuous OM1 branch which is medium caliber, and small caliber very tortuous OM2 branch. There is 30-40% stenosis in the proximal LCX. RIGHT CORONARY ARTERY: RCA is totally occluded in the mid segment with diffuse disease in the proximal segment. KORI 0 flow. After attempted PCI, the vessel appears to continue as R
[2024-02-21 23:16] VITALS: BP 91/64; PULSE 87; RESP 24; O2SAT 91
[2024-02-21 23:31] VITALS: BP 108/54; PULSE 88; RESP 19; O2SAT 94
[2024-02-21 23:40] LABS: Basophils Absolute Auto 0.1 K/mm3 (0.0-0.1); Basophils Percent Auto 0.4 % (0.2-1.2); Eosinophils Percent Auto 0.1 % (0-4.4); Hemoglobin 8.5 g/dL (12.0-15.0); Immature Granulocyte Absolute 0.11 K/mm3 (0.00-0.031); Immature Granulocyte Percent A 0.7 % (0-0.5); Lymphocytes Absolute Auto 1.03 K/mm3 (0.9-3.2); Lymphocytes Percent Auto 6.9 % (18.3-44.2); Mean Corpuscular HGB Conc 31.5 g/dl (32-36); Mean Corpuscular Hemoglobin 29.5 pg (26-34); Mean Corpuscular Volume 93.8 fl (80-100); Mean Platelet Volume 11.6 fl (7.4-10.4); Monocytes Absolute Auto 0.9 K/mm3 (0.1-0.6); Monocytes Percent Auto 6.1 % (2.6-8.5); Neutrophils Absolute Auto 12.8 K/mm3 (1.3-6.7); Neutrophils Percent Auto 85.8 % (45.5-73.1); Platelet Count Result 222 k/mm3 (150-375); Red Blood Count 2.88 M/mm3 (4.2-5.4); Red Cell Distribution Width 15.2 % (11.5-14.5)
--- NOTE | 2024-02-21 23:42 | PC.NURSE ---
[address] Bonds and received order to not call with troponins and clarified that he did speak with Dr Birmingham about ICU admit. MD asks this nurse to speak with patient and about code status because it was indicated to him that she should be a DNR. [id number] This nurse and Abhi Armando RN spoke with patient about code status and she states she would not want to be placed on any machines or have her heart restarted if it stopped. DNR order placed in chart.
[2024-02-21 23:48] VITALS: BMI 26.2
--- NOTE | 2024-02-21 23:50 | ADMGEN ---
This patient, Shellie Lund, was admitted to Intensive Care Unit-5 from cardiac cleaning laborer at 2303. Patient/family oriented to hospital policies and general routines including ID bracelet, bed and alarms, visiting hours, pain management, procedures, bathroom and other care routines, personal items, smoking policy, room service/diet, and visiting hours. Information on how to activate the Rapid Response Team has been discussed. Patient/Family are encouraged to report perceived risks to care and to ask questions if they do not understand what they are told or what they should do.
[2024-02-21 23:51] LABS: INR 2.9; Prothrombin Time 30.9 Seconds (11.1-14.7)
[2024-02-21] MEDS: SODIUM CHLORIDE 0.9% IV 1,000 ML 125 ML IV CONT (23:51)
[2024-02-21 23:53] LABS: Alanine Aminotransferase 72 U/L (6-35); Alkaline Phosphatase 66 U/L (38-126); Anion Gap 10 mmol/L (4-12); Aspartate Amino Transferase 157 U/L (14-36); Blood Urea Nitrogen 26 mg/dL (7-17); Calcium 8.1 mg/dL (8.4-10.2); Carbon Dioxide 16 mmol/L (22-30); Chloride 109 mmol/L (98-107); Cholesterol 126 mg/dL (0-200); Estimated CRCL calculation 19 ml/min; Estimated Glomerular Filt Rate 36; Glucose 199 mg/dL (65-110); HDL Direct 28 mg/dL; Partial Thromboplastin Time 149.7 Seconds (22.3-36.8); Potassium 3.4 mmol/L (3.4-5.0); Sodium 135 mmol/L (137-145); Triglycerides 184 mg/dL (<150)
--- NOTE | 2024-02-21 23:54 | ECG_ITS ---
Test Date: 2024-02-22 00:06:42 Measurements Intervals [place] Rate: 83 P: 52 KS: 236 QRS: -34 QRSD: 134 T: -21 QT: 405 QTc: 477 Interpretive Statements SINUS RHYTHM WITH FIRST DEGREE AV BLOCK MARKED LEFT AXIS DEVIATION [QRS AXIS < -30] RIGHT BUNDLE BRANCH BLOCK EVOLVING INFERIOR INFARCTION ABNORMAL ECG Compared to ECG 02/21/2024 20:16:[address]-ELEVATION NM IS EVOLVING Electronically Signed On 02-22-2024 08:43:18 CDT by Guanaco Causey M.D.
[2024-02-22] VITALS (20 sets, daily range): BP systolic 93–143; BP diastolic 42–92; PULSE 21–88; RESP 17–27; TEMP 36.4–36.8; O2SAT 90–99
[2024-02-22 00:04] LABS: LDL Cholesterol Direct 74 mg/dL
[2024-02-22] MEDS: LACTATED RINGERS 1,000 ML 75 ML IV CONT (08:35)
[2024-02-22] MEDS: ONDANSETRON INJ 4 MG/2 ML VIAL IV PUSH ×2 (09:06→12:37)
--- NOTE | 2024-02-22 09:10 | WPDCNINT ---
Assessment and Plan Assessment and plan (1) ST elevation (STEMI) myocardial infarction: Code(s): I21.3 - ST elevation (STEMI) myocardial infarction of unspecified site Status: Acute Assessment and Plan: Presents with inferior STEMI underwent cardiac catheterization Continue ICU telemetry monitoring Check echocardiogram Hold beta-elida and ARB due to soft blood pressure this time resume as blood pressure allows Continue fenofibrate and simvastatin Patient was started on Plavix but not on aspirin due to history of diverticular GI bleed. Cardiology following (2) Right renal mass: Code(s): N28.89 - Other specified disorders of kidney and ureter Status: Acute Assessment and Plan: On previous hospitalization patient was found to be having 1.5 cm indeterminate right renal lesion and further investigation was recommended as an outpatient follow-up. I spoke to the patient and she states that she does not want any further testing or evaluation done for that. She states that she has not been bothered by and it turned now and she does not want further investigation or treatment even if it is a cancer which could be life-threatening for (3) Hypertension: Code(s): I10 - Essential (primary) hypertension Status: Acute Assessment and Plan: Blood pressure borderline this morning will hold antihypertensive medications at this time (4) Efmil-vo-vkdoneu kidney injury: Code(s): N17.9 - Acute kidney failure, unspecified; N18.9 - Chronic kidney disease, unspecified Status: Acute Assessment and Plan: Patient has history of chronic kidney disease but presented with creatinine elevated at 1.4 Patient is on diuretics and ARB at home Continue IV fluids for another 24 hours Monitor urine output, electrolytes and creatinine Check CK and urine electrolytes If creatinine does not improve will consider renal ultrasound as patient does have small renal mass (5) Type 2 diabetes mellitus: Code(s): E11.9 - Type 2 diabetes mellitus without complications Status: Acute Assessment and Plan: Patient has history of diabetes mellitus mention in the chart but denies any history. Not on any treatment home Will start sliding scale and monitor blood sugars (6) Hypothyroidism: Code(s): E03.9 - Hypothyroidism, unspecified Status: Acute Assessment and Plan: Continue levothyroxine (7) Nausea: Code(s): R11.0 - Nausea Status: Acute Assessment and Plan: Pcompa Danielle (8) Cerebrovascular accident: Onset Date: 12/2023 Code(s): I63.9 - Cerebral infarction, unspecified Status: Acute Assessment and Plan: Continue statin and Plavix Plan DVT prophylaxis -SCDs Nutrition -diet ordered Code Status -patient is DNR Total Critical Care Time - 30 minutes Due to a high probability of clinically significant, life threatening deterioration, the patient required my highest level of preparedness to intervene emergently and I personally spent this critical care time directly and personally managing the patient. This critical care time included obtaining a history; examining the patient; pulse oximetry; ordering and review of studies; arranging urgent treatment with development of a management plan; evaluation of patient's response to treatment; frequent reassessment; and discussions with other providers. It was exclusive of separately billable procedures and treating other patients and teaching time. Please see Assessment and Plan section and the rest of the note for further information on patient assessment and treatment Director Of Recruiting Consult Note Consult date: 02/22/24 Reason for consult: STEMI HPI: Shellie Lund is a 88 year old female with past medical history of CVA, CKD, HTN, right renal mass who was recently discharged from the hospital yesterday after she was managed for diverticular bleed presented to ER with chief complaint o
[2024-02-22 09:22] LABS: MRSA (PCR) DETECTED (NOT DETECTE)
--- NOTE | 2024-02-22 09:25 | PM.PNCARD ---
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 She will therefore go on to evolving completed inferior Q-wave infarction. Her anterior wall was vigorous and hopefully she will hemodynamically tolerate this event. Because of her intervention being unsuccessful on recent bleeding with anemia or and red cell transfusion requirement I am going to stop clopidogrel at this time. We will gradually resume beta-elida and ARB lower doses as her hemodynamics tolerate. Guanaco Causey MD [facility] Subjective Date/time seen: Since date of service: 02/22/24 09:25 Interval history: Follow-up visit in this 88-year-old lady with: Newly diagnosed coronary artery disease presenting with acute inferior wall ST-elevation infarction yesterday. Attempt at emergency revascularization failed with no baptism of flow in her RCA. She has evolved a completed infarction as a result. Significant comorbidities include recent hemorrhage with diverticular bleed resulting in the need for his red cell transfusion recently. She has no further ongoing chest pain at this time she feels nauseated and generally weak no other complaints Exam Const: General: comfortable and no acute distress Other: Elderly white female appearing her stated age no obvious distress, sleeping when I entered the room to see her HENMT: Mouth: Yes moist mucous membranes Eyes: Sclera: sclerae normal Neck: Neck: supple and no JVD Resp: Effort & Inspection: normal respiratory effort Auscultation: clear to auscultation bilaterally Cardio: Rate: regular rate Rhythm: regular rhythm GI: GI Palp: Yes Soft to palpation Auscultation: normal bowel sounds Urinary Catheter: Urinary Catheter: patent and draining Skin: General skin exam: normal color Neuro: Other: Alert and oriented x3 Extrem: Other: Adequate perfusion, no edema Objective Data Vital Signs Vital Signs: Vital Signs - 24 hr 02/21/24 20:11 02/21/24 20:40 02/21/24 20:30 Temperature 36.7 C Pulse Rate 52 L 46 L 46 L Respiratory Rate 18 13 Blood Pressure 100/36 L 93/41 L Pulse Oximetry 100 95 Oxygen Delivery Room Air Oxygen Flow Rate 02/21/24 20:53 02/21/24 23:16 02/21/24 23:31 Temperature Pulse Rate 87 88 Respiratory Rate 24 H 19 Blood Pressure 91/64 L 108/54 L Pulse Oximetry 95 91 94 Oxygen Delivery Room Air Oxygen Flow Rate 02/22/24 00:00 02/22/24 00:00 02/22/24 00:31 Temperature Pulse Rate 88 21 L Respiratory Rate 27 H 21 H Blood Pressure 114/63 95/43 L Pulse Oximetry 91 96 92 Oxygen Delivery Nasal Cannula Oxygen Flow Rate 2 02/22/24 00:00 02/22/24 01:31 02/22/24 02:00 Temperature Pulse Rate 84 78 78 Respiratory Rate 22 H 18 Blood Pressure 140/63 93/72 L Pulse Oximetry 99 99 Oxygen Delivery Oxygen Flow Rate 02/22/24 02:00 02/22/24 03:00 02/22/24 04:00 Temperature Pulse Rate 78 79 Respiratory Rate 23 H Blood Pressure 128/77 Pulse Oximetry 99 97 Oxygen Delivery Nasal Cannula Oxygen Flow Rate 2 02/22/24 04:00 02/22/24 05:00 02/22/24 06:00 Temperature 36.8 C Pulse Rate 80 81 81 Respiratory Rate 23 H 25 H 24 H Blood Pressure 143/70 H 133/66 110/53 L Pulse Oximetry 97 91 90 Oxygen Delivery Oxygen Flow Rate 02/22/24 04:00 02/22/24 06:00 02/22/24 07:00 Temperature Pulse Rate 75 81 79 Respiratory Rate 25 H Blood Pressure 107/92 H Pulse Oximetry 98 Oxygen Delivery Oxygen Flow Rate Intake/Output Intake/Output: Intake & Output 02/19/24 02/20/24 02/21/24 02/22/24 23:59 23:59 23:59 23:59 Intake Total 1539.5 Output Total 200 Balance 1339.5 Meds/Results Medications: Act
[2024-02-22 09:52] LABS: Creatine Kinase 762 U/L (30-135)
[2024-02-22 09:56] LABS: Hemoglobin A1C 5.7 % (<5.7)
[2024-02-22 10:37] LABS: Creatinine Urine 164.5 mg/dL
[2024-02-22 10:42] LABS: Sodium Urine Random 66 meq/L
[2024-02-22] MEDS: POTASSIUM CHLORIDE INJ 40 MEQ in SODIUM CHLORIDE 0.9% IV 500 ML 130 MEQ IVPB (10:58)
[2024-02-22] MEDS: PANTOPRAZOLE SODIUM IV 40 MG VIAL IV PUSH (10:58)
[2024-02-22 12:10] LABS: Glucose Point of Care 170 mg/dl (65-105)
[2024-02-22] MEDS: NITROGLYCERIN SL 0.4 MG TABLET SUBLINGUAL (13:49)
[2024-02-22 14:52] LABS: Lipase 37 U/L (23-300)
[2024-02-22] MEDS: HYDROmorphone HCL INJ (*CRX) 1 MG/ML SYR 0.5 MG IV PUSH (15:08)
[2024-02-22 16:39] LABS: Glucose Point of Care 154 mg/dl (65-105)
[2024-02-22 20:40] LABS: Glucose Point of Care 158 mg/dl (65-105)
[2024-02-23] VITALS (18 sets, daily range): BP systolic 106–135; BP diastolic 42–97; PULSE 69–99; RESP 16–28; TEMP 36.5–36.9; O2SAT 91–99; BMI 27.1
--- NOTE | 2024-02-23 | ECHO_ITS ---
Patient Info Name: Shellie Lund Age: 88 years : 1935 Gender: Female Ht: 60 in Wt: 134 lbs BSA: 1.62 m2 HR: 88 bpm BP: 124 / 89 mmHg Heart Rhythm: Sinus Rhythm Technical Quality: Fair Exam Date: 02/23/2024 10:01 AM Exam Location: Echo Lab Patient Status: Inpatient Admit Date: 02/21/2024 Staff Ordering Physician: Leo Birmingham MD Welt Sewer: Jadiel Alejandre RUST Attending Provider: Toni Bonds MD Exam Type: CA echo doppler color flow Study Info Indications I21.4 - Non-ST elevation (NSTEMI) myocardial infarction Complete two-dimensional, color flow and Doppler transthoracic echocardiogram is performed. Summary 1. Complete two-dimensional, color flow and Doppler transthoracic echocardiogram is performed. 2. Mild concentric left ventricular hypertrophy with infero posterior hypokinesia of global ejection fraction 50-55%. 3. Mild biatrial enlarged. 4. Mild right ventricular enlargement with hypokinesia. 5. Trivial mitral regurgitation. 6. Compared to echo from November of this year infero posterior segment is hypodynamic and the right ventricle is dysfunction of. Left Ventricle Left ventricular chamber dimension is normal. Left ventricular systolic function is Empty, estimated at 50-55%. There is mild concentric increased left ventricular wall thickness. The left ventricular diastolic function is grade I diastolic dysfunction. Left Atria Left atrial chamber dimension is mildly enlarged. Right Atria Right atrial chamber dimension is mildly enlarged. Aortic Valve The aortic valve is normal. Pulmonic Valve The pulmonic valve is normal. Mitral Valve The mitral valve has normal leaflets. There is trace mitral valve regurgitation. Tricuspid Valve The tricuspid valve leaflets are normal. There is mild tricuspid valve regurgitation. Pericardium/Pleural The pericardium appears normal. Aorta The aortic root size at the sinus of Valsalva is normal. Left Ventricular Outflow Tract Name Value Normal LVOT 2D LVOT Diameter 1.9 cm LVOT Doppler LVOT Peak Gradient 3 mmHg LVOT Mean Gradient 1 mmHg LVOT VTI 13 cm LVOT VTI/AV VTI Ratio 0.7 LVOT Stroke Volume 38 ml LVOT CO 1.8 l/min LVOT CI 1.1 l/min/m2 Pulmonic Valve Name Value Normal RVOT Doppler RVOT Peak Gradient 1 mmHg PV Doppler PV Peak Gradient 2 mmHg PV Regurgitation Doppler WA Peak End Diastolic Velocity 115 cm/s Mitral Valve Name Value Normal
[2024-02-23] MEDS: LACTATED RINGERS 1,000 ML 75 ML IV CONT (01:33)
[2024-02-23 02:13] LABS: Glucose Point of Care 143 mg/dl (65-105)
[2024-02-23] MEDS: LEVOTHYROXINE SODIUM 50 MCG TABLET PO (06:17)
[2024-02-23 06:19] LABS: Hematocrit 26.5 % (37.0-47.0); Hemoglobin 8.1 g/dL (12.0-15.0); Mean Corpuscular HGB Conc 30.6 g/dl (32-36); Mean Corpuscular Hemoglobin 28.9 pg (26-34); Mean Corpuscular Volume 94.6 fl (80-100); Mean Platelet Volume 11.7 fl (7.4-10.4); Platelet Count Result 244 k/mm3 (150-375); Red Cell Distribution Width 15.8 % (11.5-14.5); White Blood Count 11.1 K/mm3 (4.5-10.0)
[2024-02-23 06:45] LABS: Albumin Level 3.3 g/dL (3.5-5.1); Alkaline Phosphatase 68 U/L (38-126); Anion Gap 10 mmol/L (4-12); Bilirubin,Total 0.5 mg/dL (0.2-1.3); Blood Urea Nitrogen 39 mg/dL (7-17); Calcium 8.6 mg/dL (8.4-10.2); Carbon Dioxide 19 mmol/L (22-30); Chloride 108 mmol/L (98-107); Estimated CRCL calculation 25 ml/min; Estimated Glomerular Filt Rate 43; Glucose 159 mg/dL (65-110); Magnesium 2.1 mg/dL (1.6-2.3); Phosphorus 2.7 mg/dL (2.5-4.5); Potassium 3.6 mmol/L (3.4-5.0); Sodium 137 mmol/L (137-145)
[2024-02-23 07:00] LABS: Alanine Aminotransferase 935 U/L (6-35); Aspartate Amino Transferase 1484 U/L (14-36)
[2024-02-23 08:50] LABS: Hepatitis B Surface Antigen Negative (Negative)
[2024-02-23 08:55] LABS: HAV RESULT Negative (Negative); Hepatitis B Core IgM Result Negative (Negative)
[2024-02-23] MEDS: FENOFIBRATE 160 MG TABLET PO (08:55)
[2024-02-23] MEDS: KCL 20 MEQ/0.45% NS 1,000 ML 75 ML IV CONT ×2 (08:55→20:29)
[2024-02-23] MEDS: allopurinoL 100 MG TABLET PO (08:55)
[2024-02-23] MEDS: PANTOPRAZOLE SODIUM IV 40 MG VIAL IV PUSH (08:56)
--- NOTE | 2024-02-23 09:03 | WPDINTPN ---
Progress Note: A&P Assessment and Plan (1) ST elevation (STEMI) myocardial infarction: Code(s): I21.3 - ST elevation (STEMI) myocardial infarction of unspecified site Status: Acute Assessment and Plan: Presents with inferior STEMI underwent cardiac catheterization Continue telemetry monitoring Pending echocardiogram Hold beta-elida and ARB due to soft blood pressure as this time Continue fenofibrate. Patient states intolerance to statin in the past due to myopathy. Patient was started on Plavix but was discontinued by Cardiology due to history of recurrent diverticular GI bleed in the recent past. Cardiology following and managing (2) Right renal mass: Code(s): N28.89 - Other specified disorders of kidney and ureter Status: Acute Assessment and Plan: On previous hospitalization patient was found to be having 1.5 cm indeterminate right renal lesion and further investigation was recommended as an outpatient follow-up. I spoke to the patient and she states that she does not want any further testing or evaluation done for that. She states that she has not been bothered by and it turned now and she does not want further investigation or treatment even if it is a cancer which could be life-threatening for (3) Hypertension: Code(s): I10 - Essential (primary) hypertension Status: Acute Assessment and Plan: Antihypertensive medications on hold at this time (4) Gixht-ls-hgahkxh kidney injury: Code(s): N17.9 - Acute kidney failure, unspecified; N18.9 - Chronic kidney disease, unspecified Status: Acute Assessment and Plan: Patient has history of chronic kidney disease but presented with creatinine elevated at 1.4 Patient is on diuretics and ARB at home which on hold Elevated CK suggest rhabdomyolysis versus be secondary to MO Continue IV fluids at low rate Monitor urine output, electrolytes and creatinine She had a recent CT scan of the abdomen is which did not show any stone or obstruction (5) Type 2 diabetes mellitus: Code(s): E11.9 - Type 2 diabetes mellitus without complications Status: Acute Assessment and Plan: Patient has history of diabetes mellitus mention in the chart but denies any history. Not on any treatment home Continue sliding scale and monitor blood sugars (6) Hypothyroidism: Code(s): E03.9 - Hypothyroidism, unspecified Status: Acute Assessment and Plan: Continue levothyroxine (7) Nausea: Code(s): R11.0 - Nausea Status: Acute Assessment and Plan: P.r.n. Zofran (8) Cerebrovascular accident: Onset Date: 12/2023 Code(s): I63.9 - Cerebral infarction, unspecified Status: Acute Assessment and Plan: Continue statin. Patient has not been on any antiplatelet agent as an outpatient due to recurrent GI bleed and Plavix was discontinued by Cardiology (9) Elevated liver enzymes: Code(s): R74.8 - Abnormal levels of other serum enzymes Status: Acute Assessment and Plan: Elevated ALT AST along with CK could be secondary to MO Hold statin Check right upper quadrant ultrasound Check while hepatitis panel to rule out any chronic infection although it appears to be likely etiology Monitor levels (10) Delirium: Code(s): R41.0 - Disorientation, unspecified Status: Acute Assessment and Plan: Start low-dose Seroquel at night Controlled environment Physical therapy Plan DVT prophylaxis -SCDs Nutrition -diet ordered Code Status -patient is DNR Transfer out of ICU today Subjective Date/time seen: 02/23/24 Overnight events reviewed. Patient was slightly confused overnight and not fully oriented. This morning she is partially oriented but states that she feels better than yesterday. She denies any pain whatsoever. No dyspnea. She does feel some nausea but no episodes of vomiting. All other systems were reviewed and were negative
[2024-02-23 09:07] LABS: Hepatitis C Virus Antibody Negative (Negative)
[2024-02-23 09:13] LABS: Glucose Point of Care 156 mg/dl (65-105)
--- NOTE | 2024-02-23 10:34 | PM.PNCARD ---
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 She has preserved LV function. Plavix stopped because of anemia and recent GI bleeding Statin on hold because of elevated LFT's Echo is pending Stable from a cardiac standpoint, can be downgraded to IMU status Prognosis is poor given her inability to be on standard medical therapy for CAD (2) Elevated liver enzymes: Code(s): R74.8 - Abnormal levels of other serum enzymes Status: Acute Assessment and Plan: Likely secondary to acute CT. Hold statin. (3) CAD (coronary artery disease): Code(s): I25.10 - Atherosclerotic heart disease of [place] coronary artery without angina pectoris Status: Acute Assessment and Plan: As above. (4) Delirium: Code(s): R41.0 - Disorientation, unspecified Status: Acute Subjective Date/time seen: 02/23/24 10:34 Interval history: Follow-up visit in this 88-year-old lady with: Newly diagnosed coronary artery disease presenting with acute inferior wall ST-elevation infarction yesterday. Attempt at emergency revascularization failed with no faith of flow in her RCA. She has evolved a completed infarction as a result. Significant comorbidities include recent hemorrhage with diverticular bleed resulting in the need for his red cell transfusion recently. She has no further ongoing chest pain at this time she feels nauseated and generally weak no other complaints Date of service 02/23/2024: She had some mental status changes overnight thought to be secondary to ICU delirium. She is alert and able to tell me that she is not having any chest pain or shortness of breath. Had an echo performed this morning, results of which are still pending. Exam Const: General: comfortable and no acute distress Other: Elderly white female appearing her stated age no obvious distress, sleeping when I entered the room to see her but awakens to voice, follows commands HENMT: Mouth: Yes moist mucous membranes Eyes: Sclera: sclerae normal Neck: Neck: supple and no JVD Resp: Effort & Inspection: normal respiratory effort Auscultation: clear to auscultation bilaterally Cardio: Rate: regular rate Rhythm: regular rhythm GI: Auscultation: normal bowel sounds Urinary Catheter: Urinary Catheter: patent and draining Skin: General skin exam: normal color Neuro: Cognition (Neuro): abnormal cognition Extrem: Other: Adequate perfusion, no edema Objective Data Vital Signs Vital Signs: Vital Signs - 24 hr 02/22/24 12:00 02/22/24 12:00 02/22/24 12:00 Temperature Pulse Rate 87 85 Respiratory Rate 17 Blood Pressure 111/54 L Pulse Oximetry 98 99 Oxygen Delivery Nasal Cannula Oxygen Flow Rate 1 02/22/24 14:00 02/22/24 14:00 02/22/24 15:05 Temperature 36.5 C Pulse Rate 83 83 88 Respiratory Rate 27 H 26 H Blood Pressure 99/49 L 113/55 L Pulse Oximetry 98 99 Oxygen Delivery Oxygen Flow Rate 02/22/24 15:57 02/22/24 16:00 02/22/24 16:00 Temperature Pulse Rate 81 81 Respiratory Rate 19 Blood Pressure 98/51 L Pulse Oximetry 96 96 Oxygen Delivery Nasal Cannula Oxygen Flow Rate 1 02/22/24 18:00 02/22/24 18:00 02/22/24 20:00 Temperature Pulse Rate 82 82 82 Respiratory Rate 20 22 H Blood Pressure 119/54 L 114/52 L Pulse Oximetry 97 97 Oxygen Delivery Oxygen Flow Rate 02/22/24 20:00 02/22/24 20:00 02/22/24 22:00 Temperature Pulse Rate 82 82 Respiratory Rate 22 H Blood Pressure 115/51 L Pulse Oximetry 97 99 Oxygen Delivery Nasal Cannula Oxygen Flow Rate 1 02/22/24 22:00 02/23/24 00:00 02/23/24 00:00 Temperature Pul
[2024-02-23 12:03] LABS: Glucose Point of Care 152 mg/dl (65-105)
--- NOTE | 2024-02-23 17:20 | PC.NURSE ---
This patient, Shellie Lund, was transferred to [[id number]] on 02/23/24 at 1720. Personal belongings sent with patient. Report given to [Randa MANLEY]. Appropriate documentation sent with patient.
[2024-02-23 17:25] LABS: Glucose Point of Care 136 mg/dl (65-105)
[2024-02-23 20:21] LABS: Glucose Point of Care 136 mg/dl (65-105)
[2024-02-23] MEDS: QUEtiapine FUMARATE 25 MG TABLET PO (20:29)
[2024-02-23] MEDS: HYDROmorphone HCL INJ (*CRX) 1 MG/ML SYR 0.5 MG IV PUSH (23:54)
[2024-02-24] VITALS (18 sets, daily range): BP systolic 104–171; BP diastolic 54–113; PULSE 66–102; RESP 18–28; TEMP 36.3–36.5; O2SAT 90–92
[2024-02-24 04:21] LABS: Hematocrit 29.2 % (37.0-47.0); Hemoglobin 8.7 g/dL (12.0-15.0); Mean Corpuscular HGB Conc 29.8 g/dl (32-36); Mean Corpuscular Hemoglobin 29.3 pg (26-34); Mean Corpuscular Volume 98.3 fl (80-100); Mean Platelet Volume 12.2 fl (7.4-10.4); Platelet Count Result 245 k/mm3 (150-375); Red Blood Count 2.97 M/mm3 (4.2-5.4); Red Cell Distribution Width 15.8 % (11.5-14.5); White Blood Count 15.1 K/mm3 (4.5-10.0)
[2024-02-24 04:42] LABS: Albumin Level 3.3 g/dL (3.5-5.1); Alkaline Phosphatase 75 U/L (38-126); Anion Gap 15 mmol/L (4-12); Bilirubin,Total 0.8 mg/dL (0.2-1.3); Blood Urea Nitrogen 44 mg/dL (7-17); Calcium 8.6 mg/dL (8.4-10.2); Carbon Dioxide 13 mmol/L (22-30); Chloride 106 mmol/L (98-107); Creatine Kinase 899 U/L (30-135); Estimated CRCL calculation 20 ml/min; Estimated Glomerular Filt Rate 33; Glucose 151 mg/dL (65-110); Magnesium 2.5 mg/dL (1.6-2.3); Potassium 3.8 mmol/L (3.4-5.0); Sodium 134 mmol/L (137-145)
[2024-02-24] MEDS: IPRATROPIUM 0.5 MG/ALBUTEROL SULFATE 2.5 MG AMPUL.NEB 3 ML INHALATION (05:14)
[2024-02-24 05:23] LABS: Alanine Aminotransferase 1096 U/L (6-35); Aspartate Amino Transferase 1163 U/L (14-36)
[2024-02-24 08:28] LABS: Glucose Point of Care 172 mg/dl (65-105)
[2024-02-24] MEDS: WATER FOR IRRIGATION, STERILE 1,000 ML BOTTLE 1000 ML (09:10)
[2024-02-24] MEDS: PANTOPRAZOLE SODIUM IV 40 MG VIAL IV PUSH (09:10)
--- NOTE | 2024-02-24 09:23 | PM.IMCN ---
Assessment and Plan Assessment and plan (1) Nvgni-vs-mkfsgah kidney injury: Code(s): N17.9 - Acute kidney failure, unspecified; N18.9 - Chronic kidney disease, unspecified Status: Acute (2) ST elevation (STEMI) myocardial infarction: Code(s): I21.3 - ST elevation (STEMI) myocardial infarction of unspecified site Status: Acute (3) Elevated liver enzymes: Code(s): R74.8 - Abnormal levels of other serum enzymes Status: Acute (4) Cerebrovascular accident: Onset Date: 12/2023 Code(s): I63.9 - Cerebral infarction, unspecified Status: Acute (5) Type 2 diabetes mellitus: Code(s): E11.9 - Type 2 diabetes mellitus without complications Status: Acute Plan Acute encephalopathy Patient has history of CVA, nonverbal, ischemic dementia Mental status is worse than baseline per patient's statement, possible due to poor perfusion ST elevation (STEMI) myocardial infarction: Code(s): I21.3 - ST elevation (STEMI) myocardial infarction of unspecified site Patient present ED with a chief complaint of chest pain, patient was found have inferior STEMI, patient underwent PCI, 3 stents were placed in right coronary artery 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 Extrusion Operator spoke to the patient and she states that she does not want any further testing or evaluation done for that. She states that she has not been bothered by and it turned now and she does not want further investigation or treatment even if it is a cancer which could be life-threatening for Essential hypertension Antihypertensive medications on hold at this time because of hypotension Type 2 diabetes mellitus: Code(s): E11.9 - Type 2 diabetes mellitus without complications Status: Acute Assessment and Plan: Patient has history of diabetes mellitus Patient does not take medication home Continue sliding scale and monitor blood sugars (6) Hypothyroidism: Code(s): E03.9 - Hypothyroidism, unspecified Status: Acute Assessment and Plan: Continue levothyroxine Cerebrovascular accident: Onset Date: 12/2023 Code(s): I63.9 - Cerebral infarction, unspecified Status: Acute Assessment and Plan: Continue statin. Patient has not been on any antiplatelet agent as an outpatient due to recurrent GI bleed and Plavix was discontinued by Cardiology (9) Elevated liver enzymes: Code(s): R74.8 - Abnormal levels of other serum enzymes Status: Acute Assessment and Plan: Elevated ALT AST along with CK could be secondary to [place] due to hypoperfusion Hold statin Check right upper quadrant ultrasound:Small volume of perihepatic ascites. Gallbladder wall thickening, which may be secondary to interstitial avelino Check while hepatitis panel : Negative Monitor levels Consult GI for evaluation treatment Delirium: Code(s): R41.0 - Disorientation, unspecified Status: Acute Assessment and Plan: Start low-dose Seroquel at night Controlled environment Physical therapy Patient condition is critical, prognosis over poor. Patient has severe ischemic dementia, nonverbal, and also has a poor quality of life. Patient is at end-stage of life, patient family requested transfer patient to hospice care once it is set up. Now patient requests to provide patient co
[2024-02-24] MEDS: SODIUM CHLORIDE 0.9% IV 1,000 ML 100 ML IV CONT (12:07)
[2024-02-24 12:20] LABS: Glucose Point of Care 156 mg/dl (65-105)
[2024-02-24 14:08] LABS: Appearance Urine Cloudy (Clear); Bacteria Urine 4+ /hpf; Bilirubin Urine 1+ (Negative); Blood Urine 2+ (Negative); Color Urine Dark Yellow (Yellow); Glucose Urine UA Negative (Negative); Ketones Urine Negative (Negative); Leukocyte Esterase Ur 1+ LEU/UL (Negative); Mucus Urine Present /lpf; Need Manual Microscopic Reviewed; Nitrate Urine Negative (Negative); Non Pathogenic Casts >20; Protein Urine 2+ mg/dL (Negative); Specific Grav Ur 1.023 (1.001-1.035); Squamous Epithelial Cell Urine Moderate /hpf (Few); WBC Urine 21-50 /hpf (0-3)
[2024-02-24 14:11] LABS: Add Urine Microscopic? YES
--- NOTE | 2024-02-24 14:31 | PCCARD ---
CANCELLED EKG ORDER @ 10:44 NOT DONE. CARDIAC MONITORING WAS DONE
[2024-02-24] MEDS: LORazepam INJ (*CRX) 2 MG/ML VIAL 0.5 MG IV PUSH ×2 (15:37→20:07)
--- NOTE | 2024-02-24 16:11 | WPDGICN ---
Assessment and Plan Assessment and plan (1) ST elevation (STEMI) myocardial infarction: Code(s): I21.3 - ST elevation (STEMI) myocardial infarction of unspecified site Status: Acute Assessment and Plan: cardiology on board (2) Vylgo-fp-nemekcw kidney injury: Code(s): N17.9 - Acute kidney failure, unspecified; N18.9 - Chronic kidney disease, unspecified Status: Acute (3) Elevated liver enzymes: Code(s): R74.8 - Abnormal levels of other serum enzymes Status: Acute Assessment and Plan: this is from acute DE, no need of further work up (4) Delirium: Code(s): R41.0 - Disorientation, unspecified Status: Acute Assessment and Plan: she is confused and family decided for hospice care (5) Cerebrovascular accident: Onset Date: 12/2023 Code(s): I63.9 - Cerebral infarction, unspecified Status: Acute (6) Diverticular hemorrhage: Code(s): K57.31 - Diverticulosis of large intestine without perforation or abscess with bleeding Status: Acute Assessment and Plan: just recent hospitalization with GIB, no more episodes this time monitor GI Consult Note Consult date/time: 02/24/24 16:11 Reason for consult: STEMI, elevated transaminases HPI: Shellie Lund is a 88 year old female very well known to our service because recurrent diverticular bleeding. 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 She has been confused and family decided to ask for hospice evaluation with plan to go home tomorrow. Review of Systems Review of Systems: ROS unobtainable: Yes unobtainable due to mental status PMFSH Past Medical History Medical History (Updated 02/23/24 @ 12:04 by OVIDIO Hendrix) Actinic keratosis Bilateral carotid bruits Carotid Doppler ultrasounds in December 2023 showed less than 50% stenosis in bilateral internal carotid arteries. 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 She has declined attempts that another biopsy. Right renal mass 1.5 cm right renal lesion Type 2 diabetes mellitus Surgical History Surgical History History of bladder suspension procedure (2002) History of breast biopsy History of tonsillectomy and adenoidectomy History of total hysterectomy with bilateral salpingo-oophorectomy (BSO) (1978) Laryngeal cyst Status post cystectomy Family History Family History Mother Family history of cardiovascular disease Acute myocardial infarction Hypertension Family history of elevated blood lipids Sibling Hypertension Social History Social History Social History: Surrogate medical decision maker: Rafael Lund, spouse. Code status: Full code. Smoking packs per day: 2 Smoking cigarettes per day: 40.0 Years smoked: 36 Smoking pack-years: 72.00 Smoking status: Former smoker Alcohol intake: never Substance use: never Substance use type: does not use Do You Feel Safe in your Home?: Yes Lack of Transportation: No Lack of Food: Never True Current Housing: I Have Housing Concerned About Future Housing: No Difficulty Paying Gas/Electric Bills: No Difficulty Paying for Meds: No Currently Unemploy
[2024-02-24 16:13] LABS: Glucose Point of Care 133 mg/dl (65-105)
[2024-02-24] MEDS: HYDROmorphone HCL INJ (*CRX) 1 MG/ML SYR 0.5 MG IV PUSH ×2 (17:15→20:08)
--- NOTE | 2024-02-24 18:43 | PC.NURSE ---
This patient, Shellie Lund, was transferred to [facility] on 02/24/24 at 1820. Personal belongings sent with patient. Report given to Jaclyn MANLEY. Appropriate documentation sent with patient.
[2024-02-25] MEDS: LORazepam INJ (*CRX) 2 MG/ML VIAL 0.5 MG IV PUSH ×2 (05:28→11:05)
[2024-02-25 05:45] VITALS: PULSE 102; O2SAT 85
[2024-02-25 08:00] VITALS: BP 168/69; PULSE 75; RESP 24; TEMP 36.3; O2SAT 90
[2024-02-25 08:15] VITALS: O2SAT 90
--- NOTE | 2024-02-25 09:11 | PM.IMPN ---
Progress Note: A&P Assessment and Plan (1) Slagq-ap-rdefgav kidney injury: Code(s): N17.9 - Acute kidney failure, unspecified; N18.9 - Chronic kidney disease, unspecified Status: Acute (2) ST elevation (STEMI) myocardial infarction: Code(s): I21.3 - ST elevation (STEMI) myocardial infarction of unspecified site Status: Acute (3) Elevated liver enzymes: Code(s): R74.8 - Abnormal levels of other serum enzymes Status: Acute (4) Cerebrovascular accident: Onset Date: 12/2023 Code(s): I63.9 - Cerebral infarction, unspecified Status: Acute (5) Type 2 diabetes mellitus: Code(s): E11.9 - Type 2 diabetes mellitus without complications Status: Acute Plan Acute encephalopathy Patient has history of CVA, nonverbal, ischemic dementia Mental status is worse than baseline per patient's statement, possible due to poor perfusion ST elevation (STEMI) myocardial infarction: Code(s): I21.3 - ST elevation (STEMI) myocardial infarction of unspecified site Patient present ED with a chief complaint of chest pain, patient was found have inferior STEMI, patient underwent PCI, 3 stents were placed in right coronary artery Medical management per animal shelter manager ROSETTE on CKD Elevated BUN above baseline, and trending up, possible secondary to hypoperfusion due to STEMI, patient had hypotension Patient is on half-normal saline, patient is a hyponatremia 134 Received normal saline IV 100 mL/hour Discontinue IV fluid, patient is on comfort care Right renal mass: Code(s): N28.89 - Other specified disorders of kidney and ureter Status: Acute Assessment and Plan: On previous hospitalization patient was found to be having 1.5 cm indeterminate right renal lesion and further investigation was recommended as an outpatient follow-up. Sat Tutor spoke to the patient and she states that she does not want any further testing or evaluation done for that. She states that she has not been bothered by and it turned now and she does not want further investigation or treatment even if it is a cancer which could be life-threatening 02/24: No further workup, patient is on comfort care Essential hypertension Antihypertensive medications on hold at this time because of hypotension Type 2 diabetes mellitus: Code(s): E11.9 - Type 2 diabetes mellitus without complications Status: Acute Assessment and Plan: Patient has history of diabetes mellitus Patient does not take medication home Continue sliding scale and monitor blood sugars (6) Hypothyroidism: Code(s): E03.9 - Hypothyroidism, unspecified Status: Acute Assessment and Plan: Continue levothyroxine Cerebrovascular accident: Onset Date: 12/2023 Code(s): I63.9 - Cerebral infarction, unspecified Status: Acute Assessment and Plan: Continue statin. Patient has not been on any antiplatelet agent as an outpatient due to recurrent GI bleed and Plavix was discontinued by Cardiology (9) Elevated liver enzymes: Code(s): R74.8 - Abnormal levels of other serum enzymes Status: Acute Assessment and Plan: Elevated ALT AST along with CK could be secondary to MO due to hypoperfusion Hold statin Check right upper quadrant ultrasound:Small volume of perihepatic ascites. Gallbladder wall thickening, which may be secondary to interstitial avelino Check while hepatitis panel : Negative Monitor levels Consulted GI for evaluation treatment, appreciate recommendations Delirium: Code(s): R41.0 - Disorientation, unspecified Status: Acute Assessment and Plan: Start low-dose Seroquel at night Controlled environment Physical therapy Patient condition is critical, prognosis over poor. Patient has severe ischemic dementia, nonverbal, and also has a poor quality of life. Patient is at end-stage of life, patient family requested tr
--- NOTE | 2024-02-25 13:37 | P.DS_ITS ---
DS: Admitting Diagnosis Discharge Date 02/24 DS: Summary Time Spent with Patient Time attestation: Total time spent providing and/or coordinating discharge services: DS: Data Data Completed and Pending Labs on day of discharge: Labs from last 24 hours 02/24/24 02/24/24 15:47 13:41 POC Capillary Glucose 133 H Urine Color Dark yellow Urine Appearance Cloudy H Urine pH 5.0 Ur Specific [place] 1.023 Urine Protein 2+ H Urine Glucose (UA) Negative Urine Ketones Negative Ur Blood (Man) 2+ H Urine Nitrate Negative Urine Bilirubin 1+ H Urine Urobilinogen 1.0 Ur Leukocyte Esterase 1+ H Add Ur Microanalysis Reviewed Urine RBC 6-10 H Urine WBC 21-50 H Ur Squamous Epith Cells Moderate Urine Bacteria 4+ H Urine Casts >20 Urine Mucus Present Discharge Plan Discharge Attending physician on discharge: Jesus Tirado Consulting providers: Leo Birmingham; Jesus Tirado; Angelito Mckeon Discharging Clinician: Jesus Tirado Anticipated Discharge Date/Time: 02/25/24 13:34 Activity: as tolerated Diet: as tolerated Patient Instructions: Heart Attack (DC), Acute Coronary Syndrome (DC), Cardiac Rehabilitation (DC) Stand Alone Forms: General Discharge Information Discharge Medications: Continued gabapentin 100 mg capsule 100 mg PO TID Qty: 90 1RF amlodipine 5 mg tablet 5 mg PO HS meclizine 25 mg tablet 25 mg PO TID PRN (Reason: Dizziness Or Vertigo) Patient Comments: Patient states she only takes PRN levothyroxine [Synthroid] 50 mcg tablet 50 mcg PO DAILY Rx Instructions: TAKE 1 TABLET DAILY allopurinol 100 mg tablet 100 mg PO DAILY Qty: 30 0RF indapamide 2.5 mg tablet 2.5 mg PO DAILY Qty: 90 1RF lansoprazole 30 mg capsule,delayed release(DR/EC) 30 mg PO DAILY Qty: 90 1RF irbesartan 300 mg tablet 300 mg PO DAILY Qty: 90 1RF fenofibrate 160 mg tablet 160 mg PO DAILY Qty: 90 1RF metoprolol succinate 50 mg tablet extended release 24 hr 50 mg PO BID Qty: 180 1RF Date of admission: 02/21/24 21:00 Primary Care Provider: Maycol Khan Admitting Provider: Toni Bonds Attending physician on admission: Toni Bonds Condition: Critical
--- NOTE | 2024-02-26 16:39 | PM.DS ---
DS: Admitting Diagnosis Discharge Date 02/25/24 Admitting Diagnosis (1) Realb-ao-ugbmdfc kidney injury: Code(s): N17.9 - Acute kidney failure, unspecified; N18.9 - Chronic kidney disease, unspecified Status: Acute (2) ST elevation (STEMI) myocardial infarction: Code(s): I21.3 - ST elevation (STEMI) myocardial infarction of unspecified site Status: Acute (3) Elevated liver enzymes: Code(s): R74.8 - Abnormal levels of other serum enzymes Status: Acute (4) Cerebrovascular accident: Onset Date: 12/2023 Code(s): I63.9 - Cerebral infarction, unspecified Status: Acute (5) Type 2 diabetes mellitus: Code(s): E11.9 - Type 2 diabetes mellitus without complications Status: Acute DS: Discharge Diagnosis Discharge Diagnosis (1) Ksqku-gf-jfoejdw kidney injury: Code(s): N17.9 - Acute kidney failure, unspecified; N18.9 - Chronic kidney disease, unspecified Status: Acute (2) ST elevation (STEMI) myocardial infarction: Code(s): I21.3 - ST elevation (STEMI) myocardial infarction of unspecified site Status: Acute (3) Elevated liver enzymes: Code(s): R74.8 - Abnormal levels of other serum enzymes Status: Acute (4) Cerebrovascular accident: Onset Date: 12/2023 Code(s): I63.9 - Cerebral infarction, unspecified Status: Acute (5) Type 2 diabetes mellitus: Code(s): E11.9 - Type 2 diabetes mellitus without complications Status: Acute DS: Summary Hospital Course Hospital Course: 88-year-old female with hypertension, dyslipidemia, hypothyroidism on thyroxine replacement, diverticulosis with recent history of GI bleed; history of CVA ( brain MRI dated 12/11/23). Patient presented to [facility] Emergency Room with complaints of chest pain that started about 2-3 hours prior to arrival. EMS EKG which I personally interpreted showed sinus bradycardia, ST elevation in inferior leads with reciprocal ST depression. at the time of evaluation in the cardiac cath technologist, patient was delirious. I spoke with patient's who states that patient does not have any known prior cardiac history including clinical AR. He is aware that patient had recent GI bleed. After discussion with patient's , he wanted to proceed with emergency cardiac catheterization with likely primary PCI, and was fully aware of risk of recurrent GI bleed. Acute encephalopathy Patient has history of CVA, nonverbal, ischemic dementia Mental status is worse than baseline per patient's statement, possible due to poor perfusion ST elevation (STEMI) myocardial infarction: Code(s): I21.3 - ST elevation (STEMI) myocardial infarction of unspecified site Patient present ED with a chief complaint of chest pain, patient was found have inferior STEMI, patient underwent PCI, 3 stents were placed in right coronary artery Medical management per onion topper ROSETTE on CKD Elevated BUN above baseline, and trending up, possible secondary to hypoperfusion due to STEMI, patient had hypotension Patient is on half-normal saline, patient is a hyponatremia 134 Received normal saline IV 100 mL/hour Discontinue IV fluid, patient is on comfort care Right renal mass: Code(s): N28.89 - Other specified disorders of kidney and ureter Status: Acute Assessment and Plan: On previous hospitalization patient was found to be having 1.5 cm indeterminate right renal lesion and further investigation was recommended as an outpatient follow-up. Tail Puller spoke to the patient and she states that she does not want any further testing or evaluation done for that. She states that she has not been bothered by and it turned now and she does not want further investigation or treatment even if it is a cancer which could be life-threatening 02/24: No further workup, patient is on comfort care Essential hypertension Antihypertensive medications on hold
== END 2024-02-25 16:15 | disposition hospice, home (50) | DRG 322 ==
LOC: ANHED 20:57 → ANHICU 21:05 → ANHIMU 02-23 17:27 → ANH3MEDSUR 02-24 18:15
PROVIDERS: Hospitalist; Internal Medicine; Admitting Provider Internal Medicine Cardiovascular Disease; Emergency Provider Emergency Medicine; PCP Family Medicine; Visit Provider Internal Medicine Cardiovascular Disease
PROC: 4A023N7 Measurement of Cardiac Sampling and Pressure, Left Heart, Percutaneous Approach (ICD-10-PCS; CPT 93452; principal; 2024-02-21 21:00)
PROC: 027036Z Dilation of Coronary Artery, One Artery with Three Drug-eluting Intraluminal Devices, Percutaneous Approach (ICD-10-PCS; 2024-02-21 21:00)
PROC: 027036Z Dilation of Coronary Artery, One Artery with Three Drug-eluting Intraluminal Devices, Percutaneous Approach (ICD-10-PCS; 2024-02-21 21:00)
PROC: 027036Z Dilation of Coronary Artery, One Artery with Three Drug-eluting Intraluminal Devices, Percutaneous Approach (ICD-10-PCS; 2024-02-21 21:00)
DX: I21.11 ST elevation (STEMI) myocardial infarction involving right coronary artery (principal); G93.49 Other encephalopathy; E87.1 Hypo-osmolality and hyponatremia; I25.10 Atherosclerotic heart disease of native coronary artery without angina pectoris; E78.5 Hyperlipidemia, unspecified; E03.9 Hypothyroidism, unspecified; E11.22 Type 2 diabetes mellitus with diabetic chronic kidney disease; N18.9 Chronic kidney disease, unspecified; I12.9 Hypertensive chronic kidney disease with stage 1 through stage 4 chronic kidney disease, or unspecified chronic kidney disease; D64.9 Anemia, unspecified; J44.9 Chronic obstructive pulmonary disease, unspecified; R00.1 Bradycardia, unspecified; K57.90 Diverticulosis of intestine, part unspecified, without perforation or abscess without bleeding; K21.9 Gastro-esophageal reflux disease without esophagitis; I95.9 Hypotension, unspecified; R41.0 Disorientation, unspecified; N28.89 Other specified disorders of kidney and ureter; R91.8 Other nonspecific abnormal finding of lung field; F03.90 Unspecified dementia, unspecified severity, without behavioral disturbance, psychotic disturbance, mood disturbance, and anxiety; Z87.891 Personal history of nicotine dependence; Z86.73 Personal history of transient ischemic attack (TIA), and cerebral infarction without residual deficits; Z90.710 Acquired absence of both cervix and uterus; Z90.722 Acquired absence of ovaries, bilateral; Z95.5 Presence of coronary angioplasty implant and graft
CPT/HCPCS: 36415; 71045; 76705; 80053; 80061; 80074; 81001; 82550; 82570; 82803; 82948; 83036; 83690; 83735; 84100; 84300; 84484; 85025; 85027; 85610; 85730; 86850; 86900; 86901; 87641; 92978; 93005; 93306; 93458; 94640; 96361; 96374; 99285; A9270; C1725; C1753; C1757; C1760; C1769; C1874; C1887; C1894; C9113; C9606; G0269; J0461; J1170; J1644; J2060; J2250; J2405; J3010; J3480; J7030; J7040; J7120